=== PATIENT | female | born 1950 ===

== ENCOUNTER 2020-01-24 09:15 | Outpatient (REF) | payer MEDICARE, SELFPAY ==
--- NOTE | 2020-01-24 09:25 | XR_ITS ---
EXAMINATION: XR THORACIC SPINE CLINICAL INFORMATION: Pain COMPARISON: None TECHNIQUE: 3 views of the thoracic spine were obtained. FINDINGS: Bone alignment is normal. No fracture or dislocation is seen. Disc spaces are normal. Paraspinal soft tissues are normal. IMPRESSION: Unremarkable examination.
== END 2020-01-24 09:16 | disposition home or self-care (01) ==
LOC: HO.XRAY 09:15
PROVIDERS: PCP Internal Medicine; Visit Provider Internal Medicine
DX: M54.6 Pain in thoracic spine (principal)
CPT/HCPCS: 72072

== ENCOUNTER 2020-02-07 09:13 | Outpatient (REF) | payer MEDICARE, SELFPAY ==
--- NOTE | 2020-02-07 | US_ITS ---
EXAMINATION: US ABDOMEN COMPLETE CLINICAL INFORMATION: Abdominal pain. COMPARISON: None TECHNIQUE: Real-time imaging of the abdominal viscera. FINDINGS: PANCREAS: Normal. ABDOMINAL AORTA: The proximal, mid, and distal segments are normal in caliber. INFERIOR VENA CAVA: Visualized portions are normal. LIVER: Normal. The liver is normal in size. The liver contour is normal. Parenchymal echogenicity is normal. No focal hepatic lesion. There is no intrahepatic biliary duct dilatation seen. GALLBLADDER: Normal. The gallbladder is physiologically distended without evidence of stones, sludge, polyps, wall thickening or pericholecystic fluid. COMMON BILE DUCT: Normal in caliber measuring 0.3 cm in diameter. RIGHT KIDNEY: Normal. No hydronephrosis. No renal calculi or focal parenchymal lesions. The kidney measures 10 cm in maximum dimension. LEFT KIDNEY: Normal. No hydronephrosis. No renal calculi or focal parenchymal lesions. The kidney measures 10 cm in maximum dimension. SPLEEN: Not well visualized. The spleen measures 8 cm in maximum dimension. FREE FLUID: None. IMPRESSION: Limited visualization of the spleen. Otherwise unremarkable exam.
== END 2020-02-07 09:14 | disposition home or self-care (01) ==
LOC: HO.US 09:13
PROVIDERS: PCP Internal Medicine; Visit Provider Internal Medicine
DX: R10.84 Generalized abdominal pain (principal)
CPT/HCPCS: 76700

== ENCOUNTER 2020-05-25 08:30 | Outpatient (REF) | payer MEDICARE, SELFPAY ==
--- NOTE | ~2020-05-25 | MM_ITS ---
EXAMINATION: MM SCREENING DIGITAL BREAST TOMOSYNTHESIS, BILATERAL CLINICAL INFORMATION: Screening. Asymptomatic. The lifetime risk of breast cancer based on the Tyrer-Cuzick Model is 7%. COMPARISON: Mammography: 05/20/2019, 05/14/2018, 05/11/2017, 02/16/2016, 11/14/2014 TECHNIQUE: Digital breast tomosynthesis is performed in both the craniocaudal and mediolateral oblique views along with computer-aided detection (CAD). Synthesized 2D images are generated from the tomosynthesis. FINDINGS: There are scattered areas of fibroglandular density (ACR BI-RADS breast composition Category b). The right breast is unremarkable. There is no developing density or interval mass or architectural abnormality. Neither breast shows abnormal calcifications. The axilla and skin contours are unremarkable. There is subtle asymmetric density posterior 3:00 left breast when compared with prior exams. Patient will be recalled for additional imaging. MM/MM tomosynthesis screening BI IMPRESSION: 1. Left: Small subtle focal asymmetric density posterior 3:00. 2. Right: No mammographic evidence of malignancy. ASSESSMENT: BI-RADS 0: Incomplete - Need Additional Imaging Evaluation RECOMMENDATION: 1. Additional views of the left breast (3-D rolled CC x2, 3-D ML). 2. Targeted ultrasound if warranted after review of the additional views. 3. Radiology department staff will contact the patient for additional imaging. This patient's information was entered into a reminder system with a target due date for their next mammogram.
== END 2020-05-25 08:31 | disposition home or self-care (01) ==
LOC: HO.MAMMO 08:30
PROVIDERS: Visit Provider Internal Medicine
DX: Z12.31 Encounter for screening mammogram for malignant neoplasm of breast (principal)
CPT/HCPCS: 77063; 77067

== ENCOUNTER 2020-07-02 10:22 | Outpatient (REF) | payer MEDICARE, SELFPAY ==
--- NOTE | ~2020-07-02 | MM_ITS ---
EXAMINATION: MM DIAGNOSTIC DIGITAL BREAST TOMOSYNTHESIS, LEFT US DIAGNOSTIC ULTRASOUND BREAST, LEFT CLINICAL INFORMATION: Recall from screening for subtle asymmetric density posterior 3:00 left breast. COMPARISON: Mammography: 05/25/2020, 05/20/2019, 05/14/2018 TECHNIQUE: Digital breast tomosynthesis is performed. 2D images are generated from the tomosynthesis. The following views are obtained: 3-D rolled CC x2, 3-D ML, 3-D spot CC, 3-D spot ML. Ultrasound left breast is targeted to the outer quadrant. Grayscale imaging and color Doppler are performed without and with harmonics. FINDINGS: There are scattered areas of fibroglandular density (ACR BI-RADS breast composition Category b). The finding on additional views is less conspicuous. There is subtle benign-appearing oval nodularity on spot MLO view measuring just under 5 mm. No architectural abnormality. Ultrasound demonstrates small clustered microcysts versus tiny cyst with fine avascular internal septations 3:00 position 5 cm from nipple measuring 0.7 x 0.3 cm. There is no appreciable increased or decreased through transmission of sound likely due to the small size. There is no solid component or associated peripheral or internal color flow. Results are discussed with the patient at time of visit. MM/MM tomosynthesis added views L IMPRESSION: Additional imaging demonstrates small benign-appearing clustered microcysts versus cyst with fine avascular internal septations 3:00 position. No increased or decreased through transmission of sound. This appears to correspond to finding on recent screening mammography. ASSESSMENT: BI-RADS 3: Probably Benign RECOMMENDATION: Diagnostic left mammography and targeted left breast ultrasound in 6 months. This patient's information was entered into a reminder system with a target due date for their next mammogram.
== END 2020-07-02 10:23 | disposition home or self-care (01) ==
LOC: HO.MAMMO 10:22
PROVIDERS: PCP Internal Medicine; Visit Provider Internal Medicine
DX: R92.2 Inconclusive mammogram (principal)
CPT/HCPCS: 76642; 77061; 77065

== ENCOUNTER 2020-08-03 05:59 | Outpatient (REF) | payer MEDICARE, SELFPAY ==
[2020-08-03 07:37] LABS: Alanine Aminotransferase 21 U/L (0-31); Albumin Level 4.2 g/dL (3.5-5.0); Alkaline Phosphatase 79 U/L (39-117); Anion Gap 14 (12-20); Aspartate Amino Transferase 27 U/L (5-31); Bilirubin Total 0.4 mg/dL (0.0-1.0); Blood Urea Nitrogen 9 mg/dL (9-16); Calcium 9.4 mg/dL (8.4-10.2); Carbon Dioxide 28 mmol/L (22-29); Chloride 106 mmol/L (96-108); Cholesterol 179 mg/dL; Estimated Glomerular Filt Rate > 60; Glucose Fasting 96 mg/dL (60-99); HDL Cholesterol 60 mg/dL; LDL Cholesterol Calculated 92 mg/dl; Potassium 4.8 mmol/L (3.3-5.1); Sodium 143 mmol/L (135-145); Total Protein 7.1 g/dL (6.5-8.0); Triglycerides 136 mg/dL
== END 2020-08-03 06:00 | disposition home or self-care (01) ==
LOC: HO.LAB 05:59
PROVIDERS: PCP Internal Medicine; Visit Provider Internal Medicine
DX: E78.00 Pure hypercholesterolemia, unspecified (principal)
CPT/HCPCS: 36415; 80053; 80061

== ENCOUNTER 2020-12-31 08:55 | Outpatient (REF) | payer MEDICARE, SELFPAY ==
--- NOTE | ~2020-12-31 | MM_ITS ---
EXAMINATION: MM DIAGNOSTIC DIGITAL BREAST TOMOSYNTHESIS, LEFT US DIAGNOSTIC ULTRASOUND BREAST, LEFT CLINICAL INFORMATION: Short interval 6 months follow-up probable benign asymmetric density outer left breast likely corresponding to a benign complicated cyst. The lifetime risk of breast cancer based on the Tyrer-Cuzick Model is 5%. COMPARISON: Mammography: 07/02/2020, 05/25/2020, 05/20/2019, 05/14/2018, 05/11/2017; 02/16/2016 targeted left breast ultrasound 07/02/2020. TECHNIQUE: Digital breast tomosynthesis is performed in both the craniocaudal and mediolateral oblique views along with computer-aided detection (CAD). Synthesized 2D images are generated from the tomosynthesis. Ultrasound left breast is targeted to the outer aspect. Grayscale imaging and color Doppler are performed without and with harmonics. FINDINGS: There are scattered areas of fibroglandular density (ACR BI-RADS breast composition Category b). The asymmetric density outer left breast is less conspicuous. Parenchymal pattern is likely similar to remote exam 2016. There is no architectural abnormality, interval mass, or developing density. No abnormal calcifications. The skin contours are smooth. Ultrasound left breast demonstrates small complicated cyst with some fine internal avascular septations 3:00 position 5 cm from nipple under 1 cm, or approximately 6 x 3 mm. This appears slightly decreased from prior ultrasound. No solid mass or architectural abnormality. Results are discussed with the patient at time of visit. MM/MM tomosynthesis diagnostic LT IMPRESSION: The asymmetric density outer left breast is less conspicuous. Benign-appearing complicated cyst slightly decreased. ASSESSMENT: BI-RADS 3: Probably Benign RECOMMENDATION: Diagnostic mammography at time of annual bilateral mammography, due in 6 months. This patient's information was entered into a reminder system with a target due date for their next mammogram.
== END 2020-12-31 08:56 | disposition home or self-care (01) ==
LOC: HO.MAMMO 08:55
PROVIDERS: PCP Internal Medicine; Visit Provider Internal Medicine
DX: R92.2 Inconclusive mammogram (principal)
CPT/HCPCS: 76642; 77061; 77065

== ENCOUNTER 2021-02-01 06:02 | Outpatient (REF) | payer MEDICARE, SELFPAY ==
[2021-02-01 07:36] LABS: Alanine Aminotransferase 18 U/L (0-31); Albumin Level 4.2 g/dL (3.5-5.0); Alkaline Phosphatase 75 U/L (39-117); Anion Gap 11 (12-20); Aspartate Amino Transferase 27 U/L (5-31); Bilirubin Total 0.6 mg/dL (0.0-1.0); Blood Urea Nitrogen 10 mg/dL (9-16); Calcium 9.5 mg/dL (8.4-10.2); Carbon Dioxide 27 mmol/L (22-29); Chloride 107 mmol/L (96-108); Cholesterol 174 mg/dL; Estimated Glomerular Filt Rate 59; Glucose Fasting 94 mg/dL (60-99); HDL Cholesterol 53 mg/dL; LDL Cholesterol Calculated 102 mg/dl; Potassium 4.4 mmol/L (3.3-5.1); Sodium 141 mmol/L (135-145); Total Protein 7.1 g/dL (6.5-8.0); Triglycerides 98 mg/dL
== END 2021-02-01 06:03 | disposition home or self-care (01) ==
LOC: HO.LAB 06:02
PROVIDERS: PCP Internal Medicine; Visit Provider Internal Medicine
DX: E78.5 Hyperlipidemia, unspecified (principal)
CPT/HCPCS: 36415; 80053; 80061

== ENCOUNTER 2021-04-25 08:27 | Outpatient (REF) | payer MEDICARE, SELFPAY ==
--- NOTE | ~2021-04-25 | MM_ITS ---
EXAMINATION: BONE DENSITOMETRY CLINICAL INDICATION: Encounter for screening for osteoporosis. COMPARISON: Baseline BD dated 06/01/2009. TECHNIQUE: Using a [employer] DXA System (software version: 13.1) manufactured by [email or web address], dual-energy x-ray absorptiometry was performed of the lumbar spine and left hip. The images are of good technical quality. Summary results are attached. FINDINGS: AP SPINE L1-L4: Current: BMD 1.113 g/cm2, Z-score 0.6, T-score -0.6, normal, 4.4% increase from baseline (<5% change is not significant). Baseline: BMD 1.066 g/cm2. LEFT FEMUR, NECK: Current: BMD 0.806 g/cm2, Z-score -0.2, T-score -1.7, osteopenia. Baseline: BMD 0.810 g/cm2. LEFT FEMUR, TOTAL: Current: BMD 0.796 g/cm2, Z-score -0.5, T-score -1.7, osteopenia, 0.7% decrease from baseline (<5% change is not significant). Baseline: BMD 0.802 g/cm2. IDENTIFIED RISK FACTORS: Menopause. HISTORY OF FRACTURE: None listed. MEDICATIONS: Calcium supplements or multivitamin, vitamin D. MM/XR DEXA axial skeleton IMPRESSION: 1. DIAGNOSIS: Osteopenia based on the lowest T-score value of -1.7 in the femoral neck and total femur applying World Health Organization criteria. 2. 10-YEAR FRACTURE RISK PREDICTION, FRAX: Major osteoporotic fracture (clinical spine, forearm, hip or shoulder) 10.8%. Hip fracture 1.9%. 3. Treatment Recommendations: NOF guidelines recommend consideration for treatment in postmenopausal women and men age 50 and older presenting with the following: -A hip or vertebral (clinical or morphometric) fracture. -T-score less than or equal to -2.5 at the femoral neck or spine after appropriate evaluation to exclude secondary causes. -Low bone mass at the hip or spine and a 10-year fracture probability by FRAX of greater than or equal to 3% for hip fracture or greater than or equal to 20% for major osteoporotic fracture based on the [place] adapted WHO algorithm. 4. Other Recommendations: All treatment decisions require clinical judgment and consideration of individual patient factors, including patient preferences, comorbidities, previous drug use, risk factors not captured in the FRAX model (e.g. frailty, falls, vitamin D deficiency, increased bone turnover, interval significant decline in bone density) and possible under or overestimation of fracture risk by FRAX. Additional medical evaluation for secondary cause of low bone mineral density may be appropriate. FUTURE SCAN RECOMMENDATION: People with diagnosed cases of osteoporosis or at high risk for fracture should have regular bone mineral density tests. For patients eligible for Medicare, routine testing is allowed once every 2 years. The testing frequency can be increased to one year for patients who have rapidly progressing disease, those who are receiving or discontinuing medical therapy to restore bone mass, or have additional risk factors.
== END 2021-04-25 08:28 | disposition home or self-care (01) ==
LOC: HO.MAMMO 08:27
PROVIDERS: PCP Internal Medicine; Visit Provider Internal Medicine
DX: Z13.820 Encounter for screening for osteoporosis (principal); M85.80 Other specified disorders of bone density and structure, unspecified site; M95.8 Other specified acquired deformities of musculoskeletal system; Z78.0 Asymptomatic menopausal state; Z79.899 Other long term (current) drug therapy
CPT/HCPCS: 77080

== ENCOUNTER 2021-07-03 14:41 | Outpatient (REF) | payer MEDICARE, SELFPAY ==
--- NOTE | ~2021-07-03 | MM_ITS ---
EXAMINATION: MM DIAGNOSTIC DIGITAL BREAST TOMOSYNTHESIS, BILATERAL CLINICAL INFORMATION: Due for yearly. Also follow-up probable benign asymmetric density posterior 3:00 left breast. The lifetime risk of breast cancer based on the Tyrer-Cuzick Model is 5%. COMPARISON: Mammography: 12/31/2020, 07/02/2020, 05/25/2020 (BI-RADS 0), 05/20/2019, 05/14/2018, 05/11/2017 TECHNIQUE: Digital breast tomosynthesis is performed in both the craniocaudal and mediolateral oblique views along with computer-aided detection (CAD). Synthesized 2D images are generated from the tomosynthesis. FINDINGS: There are scattered areas of fibroglandular density (ACR BI-RADS breast composition Category b). Parenchymal pattern is similar to prior studies. The right breast is unremarkable. Fibroglandular tissue posterior 3:00 left breast is less conspicuous from initial recall exam. There is no developing density or interval mass or architectural abnormality. Neither breast shows abnormal calcifications. The axilla and skin contours are unremarkable. Results are provided to the patient at time of visit by the technologist. Finding for follow-up left breast will be reassessed again at next bilateral annual mammography, due in 12 months. MM/MM tomosynthesis diagnostic BI IMPRESSION: No mammographic evidence of malignancy. No developing density or interval architectural abnormality left breast. ASSESSMENT: BI-RADS 3: Probably Benign RECOMMENDATION: Diagnostic mammography at time of next annual exam, due in 12 months. This patient's information was entered into a reminder system with a target due date for their next mammogram.
== END 2021-07-03 14:42 | disposition home or self-care (01) ==
LOC: HO.MAMMO 14:41
PROVIDERS: PCP Internal Medicine; Visit Provider Internal Medicine
DX: R92.2 Inconclusive mammogram (principal)
CPT/HCPCS: 77062; 77066

== ENCOUNTER 2021-08-03 07:01 | Outpatient (REF) | payer MEDICARE, SELFPAY ==
[2021-08-03 07:45] LABS: Alanine Aminotransferase 19 U/L (0-31); Albumin Level 4.2 g/dL (3.5-5.0); Alkaline Phosphatase 74 U/L (39-117); Anion Gap 13 (12-20); Aspartate Amino Transferase 28 U/L (5-31); Bilirubin Total 0.8 mg/dL (0.0-1.0); Blood Urea Nitrogen 9 mg/dL (9-16); Calcium 9.7 mg/dL (8.4-10.2); Carbon Dioxide 25 mmol/L (22-29); Chloride 106 mmol/L (96-108); Cholesterol 186 mg/dL; Estimated Glomerular Filt Rate 56; Glucose Fasting 102 mg/dL (60-99); HDL Cholesterol 61 mg/dL; LDL Cholesterol Calculated 108 mg/dl; Potassium 4.4 mmol/L (3.3-5.1); Sodium 140 mmol/L (135-145); Total Protein 7.2 g/dL (6.5-8.0); Triglycerides 87 mg/dL
== END 2021-08-03 07:02 | disposition home or self-care (01) ==
LOC: HO.LAB 07:01
PROVIDERS: PCP Internal Medicine; Visit Provider Internal Medicine
DX: E78.5 Hyperlipidemia, unspecified (principal)
CPT/HCPCS: 36415; 80053; 80061

== ENCOUNTER 2022-02-07 06:06 | Outpatient (REF) | payer MEDICARE, SELFPAY ==
[2022-02-07 07:15] LABS: Alanine Aminotransferase 26 U/L (0-31); Albumin Level 4.2 g/dL (3.5-5.0); Alkaline Phosphatase 77 U/L (39-117); Anion Gap 16 (12-20); Aspartate Amino Transferase 38 U/L (5-31); Bilirubin Total 0.8 mg/dL (0.0-1.0); Blood Urea Nitrogen 8 mg/dL (9-16); Calcium 9.5 mg/dL (8.4-10.2); Carbon Dioxide 26 mmol/L (22-29); Chloride 107 mmol/L (96-108); Cholesterol 169 mg/dL; Estimated Glomerular Filt Rate > 60; Glucose Fasting 99 mg/dL (60-99); HDL Cholesterol 59 mg/dL; LDL Cholesterol Calculated 92 mg/dl; Potassium 4.6 mmol/L (3.3-5.1); Sodium 144 mmol/L (135-145); Triglycerides 92 mg/dL
[2022-02-07 07:37] LABS: Vitamin D 25-OH Total 40.8 ng/mL (>30)
== END 2022-02-07 06:07 | disposition home or self-care (01) ==
LOC: HO.LAB 06:06
PROVIDERS: PCP Internal Medicine; Visit Provider Internal Medicine
DX: M85.80 Other specified disorders of bone density and structure, unspecified site (principal); E78.5 Hyperlipidemia, unspecified; E55.9 Vitamin D deficiency, unspecified
CPT/HCPCS: 36415; 80053; 80061; 82306

== ENCOUNTER 2022-07-03 12:41 | Outpatient (REF) | payer MEDICARE, SELFPAY ==
--- NOTE | ~2022-07-03 | MM_ITS ---
EXAMINATION: MM DIAGNOSTIC DIGITAL BREAST TOMOSYNTHESIS, BILATERAL CLINICAL INFORMATION: Due for yearly. Also follow-up probable benign asymmetric density posterior 3:00 left breast. The lifetime risk of breast cancer based on the Tyrer-Cuzick Model is 5%. COMPARISON: Mammography: 07/03/2021, 12/31/2020, 07/02/2020, 05/25/2020 (BI-RADS 0), 05/20/2019, left breast ultrasound 12/31/2020 and 07/02/2020. TECHNIQUE: Digital breast tomosynthesis is performed in both the craniocaudal and mediolateral oblique views along with computer-aided detection (CAD). Synthesized 2D images are generated from the tomosynthesis. FINDINGS: There are scattered areas of fibroglandular density (ACR BI-RADS breast composition Category b). There are no significant masses, abnormal calcifications, or other abnormalities. The nodular asymmetric density for follow-up posterior 3:00 left breast is not clearly demonstrated. There is no developing density or architectural abnormality. The axilla and skin contours are unremarkable. Results are provided to the patient at time of visit by the technologist. Surveillance will be completed at next bilateral annual exam, due in one year. MM/MM tomosynthesis diagnostic BI IMPRESSION: -No mammographic evidence of malignancy. -Finding posterior 3:00 left breast for follow-up appears less conspicuous. No developing density. ASSESSMENT: BI-RADS 3: Probably Benign RECOMMENDATION: Diagnostic mammography at time of next annual exam, due in 12 months. This patient's information was entered into a reminder system with a target due date for their next mammogram.
== END 2022-07-03 12:42 | disposition home or self-care (01) ==
LOC: HO.MAMMO 12:41
PROVIDERS: Visit Provider Internal Medicine
DX: R92.2 Inconclusive mammogram (principal)
CPT/HCPCS: 77062; 77066

== ENCOUNTER 2022-08-08 05:58 | Outpatient (REF) | payer MEDICARE, SELFPAY ==
[2022-08-08 08:35] LABS: Alanine Aminotransferase 14 U/L (0-31); Albumin Level 4.2 g/dL (3.5-5.0); Alkaline Phosphatase 81 U/L (39-117); Anion Gap 14 (12-20); Aspartate Amino Transferase 24 U/L (5-31); Bilirubin Total 0.8 mg/dL (0.0-1.0); Blood Urea Nitrogen 14 mg/dL (9-16); Calcium 9.3 mg/dL (8.4-10.2); Carbon Dioxide 25 mmol/L (22-29); Chloride 108 mmol/L (96-108); Cholesterol 185 mg/dL; Estimated Glomerular Filt Rate 58; Glucose Fasting 92 mg/dL (60-99); HDL Cholesterol 57 mg/dL; LDL Cholesterol Calculated 105 mg/dl; Potassium 4.7 mmol/L (3.3-5.1); Sodium 142 mmol/L (135-145); Triglycerides 116 mg/dL
[2022-08-08 08:51] LABS: Vitamin D 25-OH Total 53.6 ng/mL (>30)
== END 2022-08-08 05:59 | disposition home or self-care (01) ==
LOC: HO.LAB 05:58
PROVIDERS: PCP Internal Medicine; Visit Provider Internal Medicine
DX: E55.9 Vitamin D deficiency, unspecified (principal); E78.5 Hyperlipidemia, unspecified; R03.0 Elevated blood-pressure reading, without diagnosis of hypertension
CPT/HCPCS: 36415; 80053; 80061; 82306

== ENCOUNTER 2022-08-26 06:05 | Outpatient (REF) | payer MEDICARE, SELFPAY ==
--- NOTE | ~2022-08-26 | XR_ITS ---
Examination: Lumbar spine and right hip. Clinical indications: Low back pain. Right hip pain. COMPARISON: None. TECHNIQUE: Lumbar spine 3 views. Right hip 2 views. FINDINGS: LUMBAR SPINE: There is normal lumbar lordosis. The vertebral heights and alignment is normal. There is loss of L5-S1 and L1-L2 disc heights. No visible acute fracture, dislocation or lytic process seen. SI joints are symmetrical and normal. RIGHT HIP: The joint space is maintained normal. No visible acute fracture, dislocation or subluxation seen. No bony erosive changes. The soft tissues are normal. XR/XR lumbar spine 2-3V IMPRESSION: 1. Mild degenerative disc changes L1-L2 and L5-S1 disc levels. No visible acute fracture, dislocation or lytic process seen. 2. Unremarkable right hip exam.
--- NOTE | ~2022-08-26 | XR_ITS ---
Examination: Lumbar spine and right hip. Clinical indications: Low back pain. Right hip pain. COMPARISON: None. TECHNIQUE: Lumbar spine 3 views. Right hip 2 views. FINDINGS: LUMBAR SPINE: There is normal lumbar lordosis. The vertebral heights and alignment is normal. There is loss of L5-S1 and L1-L2 disc heights. No visible acute fracture, dislocation or lytic process seen. SI joints are symmetrical and normal. RIGHT HIP: The joint space is maintained normal. No visible acute fracture, dislocation or subluxation seen. No bony erosive changes. The soft tissues are normal. XR/XR hip RT min 2V IMPRESSION: 1. Mild degenerative disc changes L1-L2 and L5-S1 disc levels. No visible acute fracture, dislocation or lytic process seen. 2. Unremarkable right hip exam.
== END 2022-08-26 06:06 | disposition home or self-care (01) ==
LOC: HO.XRAY 06:05
PROVIDERS: PCP Internal Medicine; Visit Provider Internal Medicine
DX: M54.50 Low back pain, unspecified (principal); M25.551 Pain in right hip
CPT/HCPCS: 72100; 73502

== ENCOUNTER 2022-10-09 10:00 | Outpatient (RCR) | payer MEDICARE, SELFPAY ==
--- NOTE | 2022-09-11 13:58 | MHC.PT.EP ---
[facility] [place] Office [place] [facility] [place] [facility] [address] Judy Baker [address] [phone] F: [phone] F: [phone] F: [phone] F: [phone] Physical Therapy Plan of Care Date of Evaluation: Date of Surgery: Diagnosis: low back pain, RIGHT hip pain (MD Dx) RIGHT hip flexor/psoas tendonitis (PT Dx) Assessment: Patient is a 72 y.o. female who is referred to PT by Dr. Gina Zapien MD with Dx of low back pain, RIGHT hip pain. PT diagnosis is R hip flexor/psoas tendonitis. Patient impairments include pain, antalgic gait, weakness, limited ROM. Patient current functional limitations are sit to stand, standing and turning, bending, lifting up R hip, ascending and descending stairs, putting on shoes/socks, ride bicycle outdoors. Patient will benefit from skilled PT to address aforementioned impairments and functional limitations to meet established goals. Frequency and Duration: The patient will be seen 2x/week for 4 weeks Short Term Goals: 2 weeks Patient demonstrates consistency and independence with HEP to self manage symptoms. Patient presents with increased R hip extension 20 degrees to be able to perform normalized gait pattern without pain. Education Analyst Goals: 4 weeks Patient presents with increased R hip flexion strength 5/5 without pain to be able to perform reciprocal stairs at home. Patient presents with increased R hip flexion AROM 110 degrees to be able to perform sit to stand off low surfaces/toilet without sxs. Treatment Plan: Modalities to reduce pain, spasms and effusion. Manual therapy to restore motion and function. Therapeutic exercise to improve strength and flexibility. Neuromuscular re-education for posture and balance. Therapeutic activities to return to functional activities of daily living. Electronically signed by: Grisel Chen, PT, DPT Please sign and return to therapist. Thank you for your referral.
--- NOTE | 2022-10-09 11:23 | MHC.PT.EP ---
[facility] [place] Office [place] [facility] [place] Office [address] Judy Baker [address] [phone] F: [phone] F: [phone] F: [phone] F: [phone] Physical Therapy Plan of Care Date of Evaluation: Date of Surgery: Diagnosis: low back pain, RIGHT hip pain (MD Dx) RIGHT hip flexor/psoas tendonitis (PT Dx) Assessment: Patient is a 72 y.o. female who is referred to PT by Dr. Gina Zapien MD with Dx of low back pain, RIGHT hip pain. PT diagnosis is R hip flexor/psoas tendonitis. Patient impairments include pain, antalgic gait, weakness, limited ROM. Patient current functional limitations are sit to stand, standing and turning, bending, lifting up R hip, ascending and descending stairs, putting on shoes/socks, ride bicycle outdoors. Patient will benefit from skilled PT to address aforementioned impairments and functional limitations to meet established goals. Frequency and Duration: The patient will be seen 2x/week for 4 weeks Short Term Goals: 2 weeks Patient demonstrates consistency and independence with HEP to self manage symptoms. Patient presents with increased R hip extension 20 degrees to be able to perform normalized gait pattern without pain. Dry Starch Operator Goals: 4 weeks Patient presents with increased R hip flexion strength 5/5 without pain to be able to perform reciprocal stairs at home. Patient presents with increased R hip flexion AROM 110 degrees to be able to perform sit to stand off low surfaces/toilet without sxs. Treatment Plan: Modalities to reduce pain, spasms and effusion. Manual therapy to restore motion and function. Therapeutic exercise to improve strength and flexibility. Neuromuscular re-education for posture and balance. Therapeutic activities to return to functional activities of daily living. Electronically signed by: Grisel Chen, PT, DPT Please sign and return to therapist. Thank you for your referral.
== END 2022-10-09 11:24 | disposition home or self-care (01) ==
LOC: HO.PT 10:00
PROVIDERS: PCP Internal Medicine; Visit Provider Internal Medicine
DX: M54.50 Low back pain, unspecified (principal); M25.551 Pain in right hip
CPT/HCPCS: 97110; 97140; 97161; 97530

== ENCOUNTER 2023-07-09 10:46 | Outpatient (REF) | payer MEDICARE, SELFPAY ==
--- NOTE | ~2023-07-09 | MM_ITS ---
EXAMINATION: MM DIAGNOSTIC DIGITAL BREAST TOMOSYNTHESIS, BILATERAL CLINICAL INFORMATION: Due for bilateral screening. Also, diagnostic for follow-up of focal asymmetry previously seen 3:00 axis left breast, middle one third. This was not seen on the most recent mammogram of 07/03/2022. COMPARISON: Mammography: 07/03/2022, 07/03/2021, 12/31/2020, 05/25/2020, 05/20/2019. TECHNIQUE: Digital breast tomosynthesis is performed in both the craniocaudal and mediolateral oblique views along with computer-aided detection (CAD). Synthesized 2D images are generated from the tomosynthesis. FINDINGS: There are scattered areas of fibroglandular density (ACR BI-RADS breast composition Category b). The previously seen asymmetric density in the 3:00 axis left breast is not seen on today's exam and has resolved. There are no suspicious masses, suspicious grouped calcifications, or areas of architectural distortion in either breast. The parenchymal pattern is stable from prior exams. No skin or axillary abnormalities. MM/MM tomosynthesis diagnostic BI IMPRESSION: No findings either breast suspicious for malignancy. Left breast demonstrates no evidence of residual asymmetry at the 3:00 axis. This appears to have resolved. This is benign. Recommend returning to routine annual screening mammography. ASSESSMENT: BI-RADS BI-RADS 1 - Negative RECOMMENDATION: 1 year F/U Results were provided to the patient at time of visit by the technologist. This patient's information was entered into a reminder system with a target due date for their next mammogram.
== END 2023-07-09 10:47 | disposition home or self-care (01) ==
LOC: HO.MAMMO 10:46
PROVIDERS: PCP Internal Medicine; Visit Provider Internal Medicine
DX: R92.2 Inconclusive mammogram (principal)
CPT/HCPCS: 77062; 77066

== ENCOUNTER → 2023-07-09 11:00 | Outpatient (BNV) | payer MEDICARE, SELFPAY | PROVIDERS: PCP Internal Medicine; Visit Provider Radiology Diagnostic Radiology | DX: R92.8 Other abnormal and inconclusive findings on diagnostic imaging of breast (principal) | CPT/HCPCS: 77066; G0279 ==

== ENCOUNTER 2023-07-22 06:37 | Outpatient (REF) | payer MEDICARE, SELFPAY ==
[2023-07-22 07:45] LABS: Alanine Aminotransferase 8 U/L (0-31); Albumin Level 3.4 g/dL (3.5-5.0); Alkaline Phosphatase 80 U/L (39-117); Anion Gap 15 (12-20); Aspartate Amino Transferase 15 U/L (5-31); Bilirubin Total 0.5 mg/dL (0.0-1.0); Blood Urea Nitrogen 9 mg/dL (9-16); Calcium 9.4 mg/dL (8.4-10.2); Carbon Dioxide 24 mmol/L (22-29); Chloride 103 mmol/L (96-108); Cholesterol 128 mg/dL (<200); Estimated Glomerular Filt Rate > 60; Glucose Fasting 107 mg/dL (60-99); HDL Cholesterol 40 mg/dL (>40); LDL Cholesterol Calculated 74 mg/dL (<100); Potassium 4.3 mmol/L (3.3-5.1); Sodium 138 mmol/L (135-145); Total Protein 7.7 g/dL (6.5-8.0); Triglycerides 72 mg/dL (<150)
== END 2023-07-22 06:38 | disposition home or self-care (01) ==
LOC: HO.LAB 06:37
PROVIDERS: PCP Internal Medicine; Visit Provider Internal Medicine
DX: E78.5 Hyperlipidemia, unspecified (principal)
CPT/HCPCS: 36415; 80053; 80061

== ENCOUNTER 2023-07-27 08:29 | Outpatient (AMB) | payer MEDICARE, SELFPAY ==
[2023-07-27 08:30] VITALS: BP 148/76; BMI 27.4
--- NOTE | 2023-07-27 08:30 | A.OFFVIS_ITS ---
Intake Vital Signs 07/27/23 08:30 07/27/23 08:52 Height 5 ft 7 in Weight 175 lb BMI 27.4 BP 148/76 H 138/80 Blood Pressure Location Lt brachial Lt brachial Position Sitting Sitting Intake Visit Reasons: ALPHONSO G0439 Intake Note: Patient here for a subsequent annual wellness visit. Sales Order Specialist Required: No Accompanied by: Spouse Allergies No Known Allergies Allergy (Verified 07/27/23 08:51) Medication List - Last Reconciled 07/27/23 by Gina Zapien MD calcium carbonate 600 mg PO BID 90 days cholecalciferol (vitamin D3) (Vitamin D3) 25 mcg PO DAILY 90 days simvastatin 10 mg PO BEDTIME 90 days HPI HPI Comments History of Present Illness Details This is a 73-year-old female that comes for her Medicare annual wellness exam accompanied by Yessi which is her significant other and healthcare proxy. Last mammogram was June 2023 and was normal. Last colonoscopy was 2015 and was normal. Last bone density showing osteopenia was done 2021 and a new bone density will be ordered. PPP handed to patient. She complains of diffuse joint pain that started about 2 months ago associated with Reeder swelling. It started with the right knee, then the left shoulder, then the neck and right shoulder, then both wrist and left knee. She denies any fever or rash. Will be referred to rheumatology for this matter. [facility] Medical History (Updated 07/27/23 @ 09:15 by Gina Zapien MD) Elevated blood pressure reading without diagnosis of hypertension Osteopenia Dyslipidemia IBS (irritable bowel syndrome) Surgical History (Updated 07/27/23 @ 08:58 by Gina Zapien MD) Keloid History of removal of ovarian cyst Family History Father Renal failure Mother Dementia Social History Housing: House Alcohol intake: current Alcohol intake frequency: a few times a month Alcohol type: beer Patient Tobacco Use Status: Former Tobacco user Tobacco use type: Cigarette e-Cigarette/Vaping Use: Never Used Second Hand Smoke Exposure: No service: No Current occupational status: retired Cognitive needs: No Hearing needs: No Vision needs: No Questionnaire Medicare Wellness Checkup [age] What gender do you identify with?: female During the past 4 weeks, how much have you been bothered by emotional problems such as feeling anxious, depressed, irritable, sad or downhearted, and blue?: not at all During the past 4 weeks, has your physical & emotional health limited your social activities with family, friends, neighbors, or groups?: moderately During the past 4 weeks, how much bodily pain have you generally had?: moderate pain During the past 4 weeks, was someone available to help you if you needed & wanted help?: yes, as much as I wanted During the past 4 weeks, what was the hardest physical activity you could do for at least 2 minutes?: moderate Can you get to places out of walking distance without help? (For eg., can you travel alone on buses, taxis or drive your car?): Yes Can you go shopping for groceries or clothes without someone's help?: Yes Can you prepare your own meals?: Yes Can you do your housework without help?: Yes Because of any health problems, do you need the help of another person with your personal care needs such as eating, bathing, dressing or getting around the house?: No Can you handle your own money without help?: Yes During the past 4 weeks, how would you rate your health in general?: good During the past 4 weeks how have things been going for you?: good & bad parts about equal Are you having difficulties driving your car?: no Do you always fasten your seat belt when you are in a car?: yes, usually During past 4 weeks, have you been bothered by the following: never: Falling or dizzy when standing up, Sexual problems?, Trouble eating well?, Teeth or denture problems?, Problems using the telephone? and Tiredness or fatigue? Have you fallen 2 or more times in the past year?: No Are you afraid of falling?: No Are you a smoker?: no During the past 4 weeks, how many drinks of wine, beer, or other alcoholic beverages did you have?: 1 drink or less per week Do you exercise for about 20 minutes 3 or more times a week?: yes, some of the time Have you been given information to help with the following?: no: Hazards in your house that might hurt you? and no: Keeping track of your medications? How often do you have trouble taking medicines the way you have been told to take them?: I always take medicine as prescribed How confident are you that you can control & manage most of your health problems?: very confident What is your race?: White Mini Mental State Exam (MMSE) Orientation What is the (year) (season) (date) (day) (month)?: year, season, date, day and month Where are we (state) (county) (town or city) (hospital) (floor)?: state, county, town or city, hospital/clinic and floor Registration Name of 3 unrelated objects clearly and slowly, then ask patient to repeat all 3 of them. (1st repeat determines score. Make sure they can repeat all three): object 1, object 2 and object 3 Attention & Calculation (CHOOSE ONE) Spell WORLD backwards (DLROW): 5 letters Recall Ask patient to repeat the 3 items from question #3.: object 1, object 2 and object 3 Language Show patient a wristwatch & ask what it is. Repeat for pencil.: watch and pencil Ask the patient to repeat the phrase 'No ifs, ands, or buts' after you.: correct Ask the patient to 'take a piece of paper with their right hand' 'fold paper in half' 'place paper on floor': take paper in right hand, fold paper in half and place paper on floor Print the sentence 'CLOSE YOUR EYES' on a piece. If patient actually closes eyes then score.: followed written direction Give patient a blank piece of paper & ask to write a sentence. Score if it contains a noun & verb.: sentence contains subject and verb Ask patient to copy figure of intersecting pentagons exactly. Score if all 10 angles & 2 intersects are included.: all 10 angles present & 2 are intersected Score Score: 30 Activity of Daily Living Bathing - sponge bath, tub bath or shower: receives no assistance (gets in/out by self, if usual bathing means Dressing - getting clothes from closets & drawers, including inner/outer garments & fasteners.: gets clothes & gets completely dressed without help Transfer: moves in & out of bed and chair without help (may use support object) Continence: controls urination/bowel movements completely by self Feeding: feeds self without help Total Score: 0 Information obtained from: patient Using telephone: independent Traveling: independent Shopping: independent Preparing meals: independent Housework: independent Taking medicine: independent Managing money: independent PHQ-9 Over the last 2 weeks, how often have you been bothered by any of the following problems? 1. Little interest or pleasure in doing things: not at all 2. Feeling down, depressed, or hopeless: not at all 3. Trouble falling or staying asleep, or sleeping too much: not at all 4. Feeling tired or having little energy: not at all 5. Poor appetite or overeating: not at all 6. Feeling bad about yourself - or that you are a failure or have let yourself or your family down: not at all 7. Trouble concentrating on things, such as reading the newspaper or watching television: not at all 8. Moving or speaking so slowly that other people could have noticed. Or the opposite - being so fidgety or restless that you have been moving around a lot more than usual: not at all 9. Thoughts that you would be better off or of hurting yourself in some way: not at all Total score: 0 Depression Screening Interpretation: Negative Depression Screening Done: Yes 98796 - PHQ-9 Billing: Yes Source: Developed by Drs. Maximino Hernandez, Flor Reddy, Mario Sherman and colleagues, with an educational tahmina from [employer]. AUDIT C Alcohol Use Questionnaire (AUDIT-C) 1. How often do you have a drink containing alcohol?: 2-4 times a month 2. How many drinks containing alcohol do you have on a typical day when you are drinking?: 1 or 2 3. How often do you have six or more drinks on one occasion?: Never Total Score: 2 Thrive Questionnaire Date Thrive assessed: 07/27/23 I am a: Patient What is your living situation today?: I have a steady place to live Within the past 12 months, did the food you bought not last and you didn't have the money to get more?: Never true Within the past 12 months, did you worry whether your food would run out before you got money to buy more?: Never true Do you have trouble paying for medicines?: No Do you have trouble getting transportation to medical appointments?: No Do you have trouble paying your heating and electricity bill?: No Do you have trouble taking care of your child, family member or friend?: No Do you have trouble with day-to-day activities such as bathing, preparing meals, shopping, managing finances, etc.?: No Are you currently unemployed and looking for a job?: No Are you interested in more education?: No Please select the resources that you would like help with: None Currently or been in a relationship where the following occur: no concerns reported THRIVE Score: 0 Fall Risk Assessment Fall Risk Assessment Fall risk assessment: No Falls in past year MISHA-7 AMB Questionnaire MISHA-7 Date MISHA - 7 assessed: 07/27/23 Feeling nervous, anxious, or on edge: 0 = Not at all Not being able to stop or control worryin = Not at all Worrying too much about different things: 0 = Not at all Trouble relaxin = Not at all Being so restless that it is hard to sit still: 0 = Not at all Becoming easily annoyed or irritable: 0 = Not at all Feeling afraid as if something awful might happen: 0 = Not at all Total MISHA-7 score (0-4 normal; 5-9 mild; 10-14 moderate; 15-21 severe): 0 Source: Developed by Drs. Maximino Hernandez, Flor Reddy, Mario Sherman and colleagues, with an educational tahmina from [employer]. MISHA-7 Assessment Billing MISHA-7 Assessment Tool: MISHA-7 Assessment 58840 Review of Systems Const All systems reviewed & are unremarkable except as noted in HPI and below Eyes Reports no additional complaints, Denies change in vision and Denies other visual disturbances ENT Reports neck pain Card Denies chest pain at rest, Denies chest pain with activity, Denies edema, Denies irregular heart rhythm, Denies claudication, Denies dyspnea, Denies dyspnea on exertion, Denies orthopnea, Denies paroxysmal nocturnal dyspnea and Denies slow heart rate Resp Denies cough, Denies dyspnea and Denies dyspnea on exertion GI Denies abdominal pain, Denies change in bowel habits, Denies excessive flatus, Denies nausea and Denies vomiting Denies urinary incontinence, Denies urinary hesitancy and Denies urinary urgency Musc Reports arthralgias, Reports joint swelling and Reports neck pain Physical Exam Vital Signs: Last Vital Signs BP 138/80 07/27/23 08:52 BMI result Body Mass Index 27.4 Const Orientation/consciousness: patient oriented x3 HEENT General nose exam: No nasal discharge present Resp Effort & Inspection: normal respiratory effort Auscultation: clear to auscultation bilaterally Cardio Jugular venous distension: no JVD Rate: regular rate Rhythm: regular rhythm Heart sounds: S1 normal heart sound present and S2 normal heart sound present Neuro General: patient oriented x3 and no focal motor deficits Gait exam (Neuro): Normal gait present Romberg Test: Negative Extrem General: Yes full ROM Psych Appearance: grossly normal Assessment & Plan Assessment & Plan (1) Encounter for Medicare annual wellness exam: Code(s): Z00.00 - Encounter for general adult medical examination without abnormal findings Plan: Repeat in a year. Orders: Orders Vitamin D 25-OH Total Today E55.9 - Vitamin D deficiency, unspecified Erythrocyte Sedimentation Rate Today M25.50 - Pain in unspecified joint XR shoulder LT min 2V Today M25.512 - Pain in left shoulder XR shoulder RT min 2V Today M25.511 - Pain in right shoulder XR wrist LT 2V Today M25.532 - Pain in left wrist Lyme IgG/IgM w/reflex to WB Today M25.50 - Pain in unspecified joint XR DEXA axial skeleton Today N95.9 - Unspecified menopausal and perimenopausal disorder Cyclic Citrullinated Peptide Today M25.50 - Pain in unspecified joint CRP High Sensitivity Today M25.50 - Pain in unspecified joint GINA Reflex Titer and Pattern Today M25.50 - Pain in unspecified joint Anti DNA DS Antibody Today M25.50 - Pain in unspecified joint Rheumatoid Factor Today M25.50 - Pain in unspecified joint XR knee LT 2V Today M25.562 - Pain in left knee XR knee RT 2V Today M25.561 - Pain in right knee XR wrist RT 2V Today M25.531 - Pain in right wrist XR cervical spine 2V Today M54.2 - Cervicalgia Referrals Rheumatology Referral M25.50 - Pain in unspecified joint Quality Reporting (2019) Adult ([facility] 138/06/11/68) Smoking risk assessment performed?: Yes Patient Tobacco Use Status: Former Tobacco user Fall Risk Screening ([facility] 139) Fall risk assessment: No Falls in past year Depression/Bipolar (159/160/161/177) PHQ-9: Total score: 0 Coding Level of Care Code Medicare Subsequent (G0439) Diagnoses Encounter for Medicare annual wellness exam Z00.00 CPT Codes Advance Care Planning - Time spent: 1-15 minutes, on File ([id number]) Additional Codes MISHA-7 Assessment Billing - MISHA-7 Assessment Tool: MISHA-7 Assessment 72777 ([id number]) Time Spent (min) 40 Advance Care Planning Advance Care Planning discussion: Completed/Scanned Date of discussion: 07/27/23 Who was present: Yessi (health care proxy), patient and me Forms completed: Health Care Proxy Time spent: 1-15 minutes, on File Actual minutes spent: 2
[2023-07-27 08:52] VITALS: BP 138/80
== END 2023-07-27 09:15 | disposition home or self-care (01) ==
PROVIDERS: PCP Internal Medicine; Visit Provider Internal Medicine
DX: Z00.00 Encounter for general adult medical examination without abnormal findings (principal)
CPT/HCPCS: 1123F; G0439

== ENCOUNTER 2023-07-28 06:36 | Outpatient (REF) | payer MEDICARE, SELFPAY ==
--- NOTE | ~2023-07-28 | XR_ITS ---
EXAMINATION: XR SHOULDER, RIGHT CLINICAL INFORMATION: Pain. COMPARISON: None available. TECHNIQUE: AP external rotation, Grashey, scapular Y, and axillary views of the right shoulder. FINDINGS: Bony alignment is normal. There is mild bony demineralization. The glenohumeral joint is intact and shows mild osteoarthritic change. The acromioclavicular and coracoclavicular intervals are normal. No fracture or dislocation is seen. There is no soft tissue calcification or foreign body. No right pneumothorax is seen. XR/XR shoulder LT min 2V IMPRESSION: 1. There is mild osteoarthritic change of the right glenohumeral joint. 2. No fracture or dislocation is seen. EXAMINATION: XR SHOULDER, LEFT CLINICAL INFORMATION: Pain. COMPARISON: None available. TECHNIQUE: AP external rotation, Grashey, scapular Y, and axillary views of the left shoulder. FINDINGS: Bony alignment is normal. There is mild bony demineralization. There is narrowing of the glenohumeral joint, with mild to moderate peripheral osteophyte formation. The acromioclavicular and coracoclavicular intervals are normal. No fracture or dislocation is seen. A small sclerotic, well marginated bone island is seen within the greater tuberosity of the proximal right humerus. No soft tissue calcifications or foreign body is seen. There is no left pneumothorax. IMPRESSION: 1. There is moderate osteoarthritic change of the left glenohumeral joint. 2. No fracture or dislocation is seen.
--- NOTE | ~2023-07-28 | XR_ITS ---
EXAMINATION: XR KNEE, RIGHT CLINICAL INFORMATION: Pain. COMPARISON: None available. TECHNIQUE: AP and lateral views of the right knee. FINDINGS: There is mild bony demineralization. The lateral and medial joint space compartments are well-maintained. The patellofemoral compartment shows mild narrowing. No fracture or dislocation is seen. There is a small joint effusion. No foreign body is seen. XR/XR knee RT 2V IMPRESSION: 1. There is mild osteoarthritic change of the right patellofemoral compartment. 2. There is a small right knee joint effusion. EXAMINATION: XR KNEE, LEFT CLINICAL INFORMATION: Pain. COMPARISON: None available. TECHNIQUE: AP and lateral views of the left knee. FINDINGS: There is mild bony demineralization. The lateral and medial joint space compartments are well-maintained. There is mild narrowing of the patellofemoral compartment. There is mild tricompartment peripheral osteophyte formation. No fracture or dislocation is seen. There is no significant joint effusion. No foreign body is seen. IMPRESSION: There is mild tricompartment osteoarthritic change of the left knee, most pronounced of the patellofemoral compartment.
--- NOTE | ~2023-07-28 | XR_ITS ---
EXAMINATION: XR WRIST, RIGHT CLINICAL INFORMATION: Pain. COMPARISON: None available. TECHNIQUE: PA, lateral, and oblique views of the right wrist. FINDINGS: There is mild bony demineralization. There is a neutral ulnar variance. There is moderate osteoarthritic change of the first carpometacarpal joint. There is mild osteoarthritic change of the interphalangeal joint of the thumb and of the second through fifth proximal interphalangeal joints. There is mild osteoarthritic change of the first metacarpophalangeal joint. No fracture or dislocation is seen. The proximal and distal carpal rows are intact. There is degenerative change of the ulnocarpal articulation. No focal soft tissue swelling, gas or foreign body is seen. XR/XR wrist RT 2V IMPRESSION: There are multi-focal osteoarthritic changes of the right hand and wrist, as detailed. No fracture or dislocation is seen. There is no abnormal focal bone erosion. EXAMINATION: XR WRIST, LEFT CLINICAL INFORMATION: Pain. COMPARISON: None available. TECHNIQUE: PA, lateral, and oblique views of the left wrist. FINDINGS: There is mild bony demineralization. There is a neutral ulnar variance. There is marked osteoarthritic change of the first carpometacarpal joint. There is mild osteoarthritic change of the interphalangeal joint of the thumb. No fracture or dislocation is seen. The proximal and distal carpal rows are intact. There is a small focal erosion of the distal ulnar styloid. No focal soft tissue swelling, gas or foreign body is seen. IMPRESSION: 1. There is marked osteoarthritic change of the first carpometacarpal joint, and mild osteoarthritic change is seen of the interphalangeal joint of the thumb. 2. There is mild focal erosion of the distal margin of the ulnar styloid process, which can be seen in association with rheumatoid arthritis. Please clinically clinically.
--- NOTE | ~2023-07-28 | XR_ITS ---
EXAMINATION: XR KNEE, RIGHT CLINICAL INFORMATION: Pain. COMPARISON: None available. TECHNIQUE: AP and lateral views of the right knee. FINDINGS: There is mild bony demineralization. The lateral and medial joint space compartments are well-maintained. The patellofemoral compartment shows mild narrowing. No fracture or dislocation is seen. There is a small joint effusion. No foreign body is seen. XR/XR knee LT 2V IMPRESSION: 1. There is mild osteoarthritic change of the right patellofemoral compartment. 2. There is a small right knee joint effusion. EXAMINATION: XR KNEE, LEFT CLINICAL INFORMATION: Pain. COMPARISON: None available. TECHNIQUE: AP and lateral views of the left knee. FINDINGS: There is mild bony demineralization. The lateral and medial joint space compartments are well-maintained. There is mild narrowing of the patellofemoral compartment. There is mild tricompartment peripheral osteophyte formation. No fracture or dislocation is seen. There is no significant joint effusion. No foreign body is seen. IMPRESSION: There is mild tricompartment osteoarthritic change of the left knee, most pronounced of the patellofemoral compartment.
--- NOTE | ~2023-07-28 | XR_ITS ---
EXAMINATION: XR SHOULDER, RIGHT CLINICAL INFORMATION: Pain. COMPARISON: None available. TECHNIQUE: AP external rotation, Grashey, scapular Y, and axillary views of the right shoulder. FINDINGS: Bony alignment is normal. There is mild bony demineralization. The glenohumeral joint is intact and shows mild osteoarthritic change. The acromioclavicular and coracoclavicular intervals are normal. No fracture or dislocation is seen. There is no soft tissue calcification or foreign body. No right pneumothorax is seen. XR/XR shoulder RT min 2V IMPRESSION: 1. There is mild osteoarthritic change of the right glenohumeral joint. 2. No fracture or dislocation is seen. EXAMINATION: XR SHOULDER, LEFT CLINICAL INFORMATION: Pain. COMPARISON: None available. TECHNIQUE: AP external rotation, Grashey, scapular Y, and axillary views of the left shoulder. FINDINGS: Bony alignment is normal. There is mild bony demineralization. There is narrowing of the glenohumeral joint, with mild to moderate peripheral osteophyte formation. The acromioclavicular and coracoclavicular intervals are normal. No fracture or dislocation is seen. A small sclerotic, well marginated bone island is seen within the greater tuberosity of the proximal right humerus. No soft tissue calcifications or foreign body is seen. There is no left pneumothorax. IMPRESSION: 1. There is moderate osteoarthritic change of the left glenohumeral joint. 2. No fracture or dislocation is seen.
--- NOTE | ~2023-07-28 | XR_ITS ---
EXAMINATION: XR WRIST, RIGHT CLINICAL INFORMATION: Pain. COMPARISON: None available. TECHNIQUE: PA, lateral, and oblique views of the right wrist. FINDINGS: There is mild bony demineralization. There is a neutral ulnar variance. There is moderate osteoarthritic change of the first carpometacarpal joint. There is mild osteoarthritic change of the interphalangeal joint of the thumb and of the second through fifth proximal interphalangeal joints. There is mild osteoarthritic change of the first metacarpophalangeal joint. No fracture or dislocation is seen. The proximal and distal carpal rows are intact. There is degenerative change of the ulnocarpal articulation. No focal soft tissue swelling, gas or foreign body is seen. XR/XR wrist LT 2V IMPRESSION: There are multi-focal osteoarthritic changes of the right hand and wrist, as detailed. No fracture or dislocation is seen. There is no abnormal focal bone erosion. EXAMINATION: XR WRIST, LEFT CLINICAL INFORMATION: Pain. COMPARISON: None available. TECHNIQUE: PA, lateral, and oblique views of the left wrist. FINDINGS: There is mild bony demineralization. There is a neutral ulnar variance. There is marked osteoarthritic change of the first carpometacarpal joint. There is mild osteoarthritic change of the interphalangeal joint of the thumb. No fracture or dislocation is seen. The proximal and distal carpal rows are intact. There is a small focal erosion of the distal ulnar styloid. No focal soft tissue swelling, gas or foreign body is seen. IMPRESSION: 1. There is marked osteoarthritic change of the first carpometacarpal joint, and mild osteoarthritic change is seen of the interphalangeal joint of the thumb. 2. There is mild focal erosion of the distal margin of the ulnar styloid process, which can be seen in association with rheumatoid arthritis. Please clinically clinically.
--- NOTE | ~2023-07-28 | XR_ITS ---
EXAMINATION: XR CERVICAL SPINE CLINICAL INFORMATION: Cervicalgia. COMPARISON: None available. TECHNIQUE: Frontal, odontoid and lateral views of the cervical spine were obtained. FINDINGS: There is bony demineralization. At C3-C4, there is mild degenerative disc disease. At C5-C6 and C6-C7, there is marked degenerative disc disease, with anterior endplate arthropathy. No acute fracture or spondylolisthesis is seen. There is multi-level cervical facet arthropathy. The dens is intact. No prevertebral soft tissue swelling is seen. There are bilateral carotid atherosclerotic calcifications. XR/XR cervical spine 2V IMPRESSION: 1. There is marked degenerative disc disease at C5-C6 and C6-C7, and mild degenerative disc disease is seen at C3-C4. 2. No acute fracture or spondylolisthesis is seen. 3. There are bilateral carotid atherosclerotic calcifications, which can be more fully evaluated with dedicated carotid ultrasound, if clinically indicated.
[2023-07-28 07:55] LABS: Vitamin D 25-OH Total 40.8 ng/mL (>30)
[2023-07-28 07:57] LABS: Rheumatoid Factor < 13.0 IU/mL (<15.0)
[2023-07-28 08:07] LABS: Erythrocyte Sedimentation Rate 89 MM/HR (0-20)
[2023-07-29 09:19] LABS: Lyme Abs Screen <0.90 index
[2023-07-29 15:33] LABS: Anti Nuclear Antibody Screen NEGATIVE (NEGATIVE)
[2023-07-29 16:38] LABS: CRP High Sensitivity >10.0 mg/L
[2023-07-30 13:59] LABS: Cyclic Citrullinated Peptide <16 UNITS
[2023-07-30 14:59] LABS: Anti DNA DS Antibody <1 IU/mL
== END 2023-07-28 06:37 | disposition home or self-care (01) ==
LOC: HO.XRAY 06:36
PROVIDERS: PCP Internal Medicine; Visit Provider Internal Medicine
DX: E55.9 Vitamin D deficiency, unspecified (principal); M25.531 Pain in right wrist; M25.532 Pain in left wrist; M25.511 Pain in right shoulder; M25.512 Pain in left shoulder; M25.561 Pain in right knee; M25.562 Pain in left knee; M54.2 Cervicalgia; M25.50 Pain in unspecified joint
CPT/HCPCS: 36415; 72040; 73030; 73100; 73560; 82306; 85652; 86038; 86141; 86200; 86225; 86431; 86617; 86618

== ENCOUNTER 2023-07-29 14:52 | Outpatient (AMB) | payer MEDICARE, SELFPAY ==
--- NOTE | 2023-07-29 14:54 | MHC.OFFVIS ---
Intake Vital Signs 07/29/23 15:01 Height 5 ft 7 in Weight 177 lb 14.609 oz BMI 27.9 BP 160/70 H Blood Pressure Location Rt brachial Position Sitting Pulse 109 H Pulse Source Pulse Oximeter Pulse Oximetry (%) 98 Oxygen Delivery Method Room Air Intake Visit Reasons: Joint Pain/CM Intake Note: New patient, presents today for joint pain. Ssis Developer Required: No Accompanied by: Other Relationship Allergies No Known Allergies Allergy (Verified 07/29/23 14:55) Medication List - Last Reconciled 07/29/23 by María Ramirez MD calcium carbonate 600 mg PO BID 90 days cholecalciferol (vitamin D3) (Vitamin D3) 25 mcg PO DAILY 90 days simvastatin 10 mg PO BEDTIME 90 days HPI HPI Comments History of Present Illness Details This is a 73-year-old female who presents for evaluation of diffuse joint pain. The condition started back in June with right knee pain followed by left knee pain, bilateral wrist pain, bilateral shoulder pain and neck pain. Associated with swelling of her wrists and knees. States that her symptoms are worse in the morning, she takes Advil 200 mg once which takes the pain down from 01/27 to 910. She has stiffness lasting all day. Patient denies any recent history of respiratory or urinary infections. She denies any fevers or weight loss. She denies any history of DVT/PE. She is unaware of any family history of an autoimmune rheumatic disease. 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[employer] Cognitive needs: No Hearing needs: No Vision needs: No Female Reproductive History Menstrual Total pregnancies: 0 Review of Systems Const Denies fever(s) and Denies weight loss ENT Reports neck pain Musc Reports arthralgias, Reports joint swelling, Reports neck pain and Reports stiffness Physical Exam Vital Signs: Last Vital Signs Pulse 109 H 07/29/23 15:01 BP 160/70 H 07/29/23 15:01 Pulse Ox 98 07/29/23 15:01 Oxygen Delivery Method Room Air 07/29/23 15:01 BMI result Body Mass Index 27.9 Const General: cooperative, healthy appearing and comfortable Nutritional Appearance: overweight Orientation/consciousness: patient oriented x3 Limitations: no limitations HEENT Head: Yes normocephalic and Yes atraumatic Mouth: moist mucous membranes Resp Effort & Inspection: normal respiratory effort and able to speak in complete sentences Auscultation: crackles bilateral at the base Cardio Rate: regular rate and tachycardic Rhythm: regular rhythm Skin General skin exam: no rashes or lesions noted Neuro General: patient oriented x3 Extrem Other: Diffuse synovitis right wrist pain with flexion and extension Right 1st MCP swelling and tenderness Significant left wrist swelling and tenderness and pain with flexion and extension Significant shoulder stiffness Bilateral knee warmth swelling and pain with any range of motion Normal nailfold capillaroscopy Assessment & Plan Assessment & Plan (1) Polyarthralgia: Code(s): M25.50 - Pain in unspecified joint Plan: This is a 73-year-old female who presents for evaluation of additive inflammatory arthritis. On exam she has diffuse synovitis. Inflammatory markers elevated. Clinical picture consistent with new onset inflammatory arthritis. Will order comprehensive serology to screen for underlying autoimmune rheumatic disease. Start prednisone taper Follow-up in 3 weeks Plan I spent 47 minutes reviewing patient's chart, evaluating patient, ordering diagnostic workup, counseling patient and documenting in the chart Orders: Orders Complement C3 Today M32.9 - Systemic lupus erythematosus, unspecified DNA Double Stranded-Crithidia Today M32.9 - Systemic lupus erythematosus, unspecified Sjogren's Antibodies Today M32.9 - Systemic lupus erythematosus, unspecified T Spot TB Today Z11.7 - Encounter for testing for latent tuberculosis infection Angiotensin Converting Enzyme Today D86.9 - Sarcoidosis, unspecified HLA B27 Today M45.9 - Ankylosing spondylitis of unspecified sites in spine Anti Extractable Nuclear Ag Today M32.9 - Systemic lupus erythematosus, unspecified C Reactive Protein Today M32.9 - Systemic lupus erythematosus, unspecified Protein Creatinine Ratio, Ur Today M32.9 - Systemic lupus erythematosus, unspecified UA w Microscopic Today M32.9 - Systemic lupus erythematosus, unspecified Complete Blood Count Auto Diff Today M32.9 - Systemic lupus erythematosus, unspecified Hepatitis A,B,C Profile Today Z11.59 - Encounter for screening for other viral diseases Immunofixation Pnl, Serum Today M32.9 - Systemic lupus erythematosus, unspecified Protein Electrophoresis, Serum Today M32.9 - Systemic lupus erythematosus, unspecified Uric Acid Today M10.9 - Gout, unspecified ANCA Vasculitides Today I77.6 - Arteritis, unspecified Lysozyme, Serum Today D86.9 - Sarcoidosis, unspecified Medications: New prednisone take 3 tabs daily for 1 week, 2 tabs daily for 1 week, then remain on 1 tab daily 60 tabs 0RF Quality Reporting (2019) Adult ([facility] 138/06/11/68) Smoking risk assessment performed?: Yes Patient Tobacco Use Status: Former Tobacco user Coding Level of Care Code New Pt Level 4 (26861) Diagnoses Polyarthralgia M25.50
[2023-07-29 15:01] VITALS: BP 160/70; PULSE 109; O2SAT 98; BMI 27.9
== END 2023-07-29 16:02 | disposition home or self-care (01) ==
PROVIDERS: PCP Internal Medicine; Visit Provider Student in an Organized Health Care Education/Training Program
DX: M25.50 Pain in unspecified joint (principal)
CPT/HCPCS: 99204

== ENCOUNTER 2023-07-29 14:52 | Outpatient (REF) | payer MEDICARE, SELFPAY ==
[2023-07-29 16:08] LABS: MANUAL DIFF FLAG NO
[2023-07-29 16:30] LABS: Basophils Absolute Auto 0.1 X10*3/uL (0.0-0.2); Basophils Percent Auto 1.1 % (0-2); Eosinophils Absolute Auto 0.2 X10*3/uL (0.0-0.4); Eosinophils Percent Auto 2.1 % (0-4); Hematocrit 32.7 % (37.0-47.0); Hemoglobin 11.1 g/dl (12.0-16.0); Imm Gran Abs Auto 0.02 X10*3/uL (0.00-0.03); Imm Gran Pct Auto 0.3 % (0.0-0.4); Lymphocytes Absolute Auto 1.7 X10*3/uL (1.2-4.9); Lymphocytes Percent Auto 22.2 % (20-40); Mean Corpuscular HGB Conc 33.9 g/dl (31.0-35.0); Mean Corpuscular Hemoglobin 31.4 pg (27.0-33.0); Mean Corpuscular Volume 92.4 fL (80.0-98.0); Mean Platelet Volume 10.9 fL (9.4-12.3); Monocytes Absolute Auto 0.8 X10*3/uL (0.1-1.2); Monocytes Percent Auto 10.5 % (2-11); Neutrophils Absolute Auto 4.8 x10*3/uL (2.0-8.3); Neutrophils Percent Auto 63.8 % (45-73); Platelet Count 314 X10*3/uL (160-400); Red Blood Count 3.54 X10*6/uL (4.20-5.50); White Blood Count 7.5 X10*3/uL (4.8-10.8)
[2023-07-29 17:36] LABS: Appearance Urine Cloudy; Color Urine Yellow; Glucose Urine UA Negative (Negative); Leukocyte Esterase Urine Negative (Negative); Nitrite Urine Negative (Negative); Specific Gravity - Urine >= 1.030 (1.005-1.025); UMIC TRIGGER UA YES; Urine Blood Negative (Negative); Urine Ketones Trace mg/dL (Negative); Urine Protein 30 (1+) mg/dL (Neg-Trace)
[2023-07-29 18:00] LABS: Bacteria Urine None Seen (None Seen); Hyaline Casts Urine 0-2 /LPF (0-2); RBC Urine 0-2 /HPF (0-2); Squamous Epithelial Cell Urine 0-2 /HPF (0-2); WBC Urine 0-5 /HPF (0-5)
[2023-07-29 18:01] LABS: Other Crystals Urine Present
[2023-07-29 18:03] LABS: Creatinine Urine 339.66 mg/dL; Total Protein Urine Random 33 mg/dL (<12)
[2023-07-29 18:42] LABS: C Reactive Protein 9.02 mg/dL (< or = 0.50); Uric Acid 3.6 mg/dL (2.4-5.7)
[2023-07-30 05:19] LABS: HBS Num1 0.19 mIU/mL (0-7.99); HBc Num1 0.09 S/CO (0.00-0.79); HBsAGNum1 0.52 S/CO (0.00-0.99); Hepatitis A Antibody IgM 0.29 Index (0-0.79); Hepatitis B Core Antibody Nonreactive (Nonreactive); Hepatitis B Surface Antigen Negative (Negative); ~HepC Num1 0.13 S/CO (0.00-0.79); ~Hepatitis A Antibody IgM Nonreactive (Nonreactive); ~Hepatitis B Surface Antibody NONREACTIVE (Nonreactive); ~Hepatitis C Antibody Nonreactive (Nonreactive)
[2023-07-31 13:38] LABS: Complement C3 115 mg/dL (83-193)
[2023-07-31 21:05] LABS: Antibody to SS-A Antigen <1.0 NEG AI (<1.0 NEG); Antibody to SS-B Antigen <1.0 NEG AI (<1.0 NEG); Myeloperoxidase Antibody <1.0 AI; Proteinase 3 PR3 Antibodies <1.0 AI; SM/Ribonucleoprotein Ab <1.0 NEG AI (<1.0 NEG); Smith Protein <1.0 NEG AI (<1.0 NEG)
[2023-07-31 22:03] LABS: Prot Elec - Alpha1 0.6 g/dL (0.2-0.3); Prot Elec - Alpha2 1.3 g/dL (0.5-0.9); Prot Elec - Beta 1 0.5 g/dL (0.4-0.6); Prot Elec - Beta 2 0.5 g/dL (0.2-0.5); Prot Elec - Gamma 1.2 g/dL (0.8-1.7)
[2023-07-31 22:18] LABS: TS Negative Control Passed; TS Panel A 0; TS Panel B 0; TS Positive Control Passed; TSpotTB Negative (Negative)
[2023-08-04 09:58] LABS: HLA B27 Negative (Negative)
[2023-08-04 13:39] LABS: Lysozyme, Serum 9.6 mcg/mL (5.0-11.0)
[2023-08-04 22:02] LABS: Angiotensin Converting Enzyme 28 U/L (9-67)
[2023-08-05 19:29] LABS: DNAds, Crithidia Antibody Negative (Negative)
[2023-08-06 09:33] LABS: IgA 285 mg/dL (70-320); IgG 1302 mg/dL (600-1540); IgM 105 mg/dL (50-300)
== END 2023-07-29 14:53 | disposition home or self-care (01) ==
LOC: HO.LAB 14:52
PROVIDERS: PCP Internal Medicine; Visit Provider Student in an Organized Health Care Education/Training Program
DX: I77.6 Arteritis, unspecified (principal); D86.9 Sarcoidosis, unspecified; M32.9 Systemic lupus erythematosus, unspecified; M45.9 Ankylosing spondylitis of unspecified sites in spine; M10.9 Gout, unspecified; M25.50 Pain in unspecified joint; Z11.7 Encounter for testing for latent tuberculosis infection; Z11.59 Encounter for screening for other viral diseases; Z72.89 Other problems related to lifestyle
CPT/HCPCS: 36415; 81001; 82164; 82570; 82784; 84156; 84165; 84550; 85025; 85549; 86021; 86140; 86160; 86235; 86255; 86334; 86481; 86704; 86706; 86709; 86803; 86812; 87340; 99202

== ENCOUNTER 2023-08-13 09:44 | Outpatient (REF) | payer MEDICARE, SELFPAY ==
--- NOTE | ~2023-08-13 | US_ITS ---
EXAMINATION: US EXTRACRANIAL CAROTID DUPLEX, BILATERAL CLINICAL INFORMATION: Occlusion/stenosis bilateral carotid arteries COMPARISON: None available. TECHNIQUE: Real-time ultrasound and Doppler techniques (integrating B-mode 2-D vascular images, Doppler spectral analysis and color-flow Doppler imaging) were utilized to interrogate the extracranial carotid arteries, the vertebral arteries and proximal subclavian arteries bilaterally. The degree of stenosis is determined by criteria similar to NASCET. FINDINGS: Right Side: 1. There is mild atherosclerotic plaque seen in the bifurcation/proximal ICA region. 2. The common carotid artery PSV proximally is 96 cm/s and distally 76 cm/s. 3. The proximal internal carotid artery velocities are 75 cm/s systolic and 17 cm/s diastolic. 4. The proximal external carotid artery PSV is 114 cm/s. 5. The vertebral artery shows antegrade flow. 6. The subclavian artery waveforms are normal. Left Side: 1. There is mild atherosclerotic plaque seen in the bifurcation/proximal ICA region. 2. The common carotid artery PSV proximally is 123 cm/s and distally 87 cm/s. 3. The proximal internal carotid artery velocities are 87 cm/s systolic and 23 cm/s diastolic. 4. The proximal external carotid artery PSV is 124 cm/s. 5. The vertebral artery shows antegrade flow. 6. The subclavian artery waveforms are normal. US/US carotid duplex BI IMPRESSION: 1. RIGHT: Minimal, non-hemodynamically significant stenosis of the proximal right internal carotid artery corresponding to a 0-49% stenosis by velocity criteria. 2. LEFT: Minimal, non-hemodynamically significant stenosis of the proximal left internal carotid artery corresponding to a 0-49% stenosis by velocity criteria.
== END 2023-08-13 09:45 | disposition home or self-care (01) ==
LOC: HO.US 09:44
PROVIDERS: PCP Internal Medicine; Visit Provider Internal Medicine
DX: I65.23 Occlusion and stenosis of bilateral carotid arteries (principal)
CPT/HCPCS: 93880

== ENCOUNTER 2023-08-17 10:26 | Outpatient (AMB) | payer MEDICARE, SELFPAY ==
[2023-08-17 10:31] VITALS: BP 164/68; PULSE 100; O2SAT 97; BMI 27.6
--- NOTE | 2023-08-17 10:31 | MHC.OFFVIS ---
Vital Signs 08/17/23 10:31 Height 5 ft 7 in Weight 176 lb 5.917 oz BMI 27.6 BP 164/68 H Blood Pressure Location Rt brachial Position Sitting Pulse 100 Pulse Source Pulse Oximeter Pulse Oximetry (%) 97 Oxygen Delivery Method Room Air Intake Visit Reasons: RA Intake Note: Patient last seen 07/29/23 presents today for follow up and test results. currently on 10mg of prednisone daily, has no pain today Alemite Operator Required: No Accompanied by: Self / Same As Patient Allergies No Known Allergies Allergy (Verified 08/17/23 10:34) Medication List - Last Reconciled 08/17/23 by María Ramirez MD calcium carbonate 600 mg PO BID 90 days cholecalciferol (vitamin D3) (Vitamin D3) 25 mcg PO DAILY 90 days prednisone take 3 tabs daily for 1 week, 2 tabs daily for 1 week, then remain on 1 tab daily simvastatin 10 mg PO BEDTIME 90 days HPI Comments Details: 73-year-old female with new onset inflammatory arthritis returns for follow-up after completion of her diagnostic workup. States that prednisone taper was quite helpful. She is currently on 10 mg daily. Initial history: This is a 73-year-old female who presents for evaluation of diffuse joint pain. The condition started back in June with right knee pain followed by left knee pain, bilateral wrist pain, bilateral shoulder pain and neck pain. Associated with swelling of her wrists and knees. States that her symptoms are worse in the morning, she takes Advil 200 mg once which takes the pain down from 10/10 to 9/10. She has stiffness lasting all day. Patient denies any recent history of respiratory or urinary infections. She denies any fevers or weight loss. She denies any history of DVT/PE. She is unaware of any family history of an autoimmune rheumatic disease. [facility] Medical History Elevated blood pressure reading without diagnosis of hypertension Osteopenia Dyslipidemia IBS (irritable bowel syndrome) Surgical History Keloid History of removal of ovarian cyst Family History Father Renal failure Mother Dementia Social History (Reviewed 08/17/23 @ 10:39 by RONEN Morrissey Housing: House Alcohol intake: current Alcohol intake frequency: a few times a month Alcohol type: beer Patient Tobacco Use Status: Former Tobacco user Tobacco use type: Cigarette e-Cigarette/Vaping Use: Never Used Second Hand Smoke Exposure: No service: No Current occupational status: retired 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[employer] Cognitive needs: No Hearing needs: No Vision needs: No Female Reproductive History Menstrual Total pregnancies: 0 Review of Systems Const Denies fever(s) and Denies weight loss Musc Reports arthralgias, Reports joint swelling and Reports stiffness Physical Exam Vital Signs: Last Vital Signs Pulse 100 08/17/23 10:31 BP 164/68 H 08/17/23 10:31 Pulse Ox 97 08/17/23 10:31 Oxygen Delivery Method Room Air 08/17/23 10:31 BMI result Body Mass Index 27.6 Const General: cooperative, healthy appearing and comfortable Nutritional Appearance: overweight Orientation/consciousness: patient oriented x3 Limitations: no limitations HEENT Head: Yes normocephalic and Yes atraumatic Mouth: moist mucous membranes Resp Effort & Inspection: normal respiratory effort and able to speak in complete sentences Cardio Rate: regular rate and tachycardic Rhythm: regular rhythm Skin General skin exam: no rashes or lesions noted Neuro General: patient oriented x3 Extrem Other: Synovitis significantly improved Right wrist swelling and tenderness Bilateral knee warmth, mild right knee swelling Quality Reporting (2019) Adult ([facility] 138//) Smoking risk assessment performed?: Yes Patient Tobacco Use Status: Former Tobacco user Results Reviewed Results Reviewed: [address] [address] XRay Report Signed Patient: Marie Ramsey MR#: [id number] : 1950 Acct:[id number] Age/Sex: 73 / F ADM Date: 07/28/23 Loc: [facility] Attending Dr: Gina Zapien MD Ordering Physician: Gina Hinton MD Date of Service: 07/28/23 Procedure(s): XR wrist RT 2V Accession Number(s): [id number] cc: Gina Hinton MD~ EXAMINATION: XR WRIST, RIGHT CLINICAL INFORMATION: Pain. COMPARISON: None available. TECHNIQUE: PA, lateral, and oblique views of the right wrist. FINDINGS: There is mild bony demineralization. There is a neutral ulnar variance. There is moderate osteoarthritic change of the first carpometacarpal joint. There is mild osteoarthritic change of the interphalangeal joint of the thumb and of the second through fifth proximal interphalangeal joints. There is mild osteoarthritic change of the first metacarpophalangeal joint. No fracture or dislocation is seen. The proximal and distal carpal rows are intact. There is degenerative change of the ulnocarpal articulation. No focal soft tissue swelling, gas or foreign body is seen. XR/XR wrist RT 2V IMPRESSION: There are multi-focal osteoarthritic changes of the right hand and wrist, as detailed. No fracture or dislocation is seen. There is no abnormal focal bone erosion. EXAMINATION: XR WRIST, LEFT CLINICAL INFORMATION: Pain. COMPARISON: None available. TECHNIQUE: PA, lateral, and oblique views of the left wrist. FINDINGS: There is mild bony demineralization. There is a neutral ulnar variance. There is marked osteoarthritic change of the first carpometacarpal joint. There is mild osteoarthritic change of the interphalangeal joint of the thumb. No fracture or dislocation is seen. The proximal and distal carpal rows are intact. There is a small focal erosion of the distal ulnar styloid. No focal soft tissue swelling, gas or foreign body is seen. IMPRESSION: 1. There is marked osteoarthritic change of the first carpometacarpal joint, and mild osteoarthritic change is seen of the interphalangeal joint of the thumb. 2. There is mild focal erosion of the distal margin of the ulnar styloid process, which can be seen in association with rheumatoid arthritis. Please clinically clinically. Assessment & Plan Assessment & Plan (1) Seronegative rheumatoid arthritis: Comment: -ve RF -ve CCP erosive dx 07/2023 Code(s): M06.00 - Rheumatoid arthritis without rheumatoid factor, unspecified site Category: Medical Plan: This is a 73-year-old female who presents for evaluation of inflammatory arthritis. On exam patient had diffuse synovitis responsive to prednisone. Serologies are negative with significantly elevated inflammatory markers. Is no psoriasis on exam. Clinical picture consistent with new onset seronegative RA. Will need to start DMARDs. Discussed risks and benefits of methotrexate. Patient agreed to proceed. 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 Panel 2 Months Z79.631 - nursing home (current) use of antimetabolite agent Medications: New methotrexate sodium orally; take 6 tabs weekly for 2 weeks then 8 tabs weekly 64 tabs 0RF folic acid 1 mg PO DAILY 90 tabs 0RF Coding Level of Care Code Est Pt Level 4 (00935) Diagnoses Seronegative rheumatoid arthritis M06.00 nursing home methotrexate user Z79.631
== END 2023-08-17 11:09 | disposition home or self-care (01) ==
PROVIDERS: PCP Internal Medicine; Visit Provider Student in an Organized Health Care Education/Training Program
DX: M06.00 Rheumatoid arthritis without rheumatoid factor, unspecified site (principal); Z79.631 Long term (current) use of antimetabolite agent
CPT/HCPCS: 99214

== ENCOUNTER → 2023-08-17 10:26 | Outpatient (BNVA) | payer MEDICARE, SELFPAY | PROVIDERS: PCP Internal Medicine; Visit Provider Student in an Organized Health Care Education/Training Program | DX: M06.00 Rheumatoid arthritis without rheumatoid factor, unspecified site (principal); Z79.631 Long term (current) use of antimetabolite agent | CPT/HCPCS: 99212 ==

== ENCOUNTER 2023-10-09 05:58 | Outpatient (REF) | payer MEDICARE, SELFPAY ==
[2023-10-09 06:15] LABS: MANUAL DIFF FLAG NO
[2023-10-09 07:00] LABS: Basophils Absolute Auto 0.1 X10*3/uL (0.0-0.2); Basophils Percent Auto 1.2 % (0-2); Eosinophils Absolute Auto 0.2 X10*3/uL (0.0-0.4); Eosinophils Percent Auto 2.6 % (0-4); Hematocrit 35.2 % (37.0-47.0); Hemoglobin 11.9 g/dl (12.0-16.0); Imm Gran Abs Auto 0.02 X10*3/uL (0.00-0.03); Imm Gran Pct Auto 0.2 % (0.0-0.4); Lymphocytes Absolute Auto 2.4 X10*3/uL (1.2-4.9); Mean Corpuscular HGB Conc 33.8 g/dl (31.0-35.0); Mean Corpuscular Hemoglobin 31.5 pg (27.0-33.0); Mean Corpuscular Volume 93.1 fL (80.0-98.0); Mean Platelet Volume 10.7 fL (9.4-12.3); Monocytes Absolute Auto 0.6 X10*3/uL (0.1-1.2); Monocytes Percent Auto 7.3 % (2-11); Neutrophils Absolute Auto 4.9 x10*3/uL (2.0-8.3); Neutrophils Percent Auto 59.7 % (45-73); Platelet Count 369 X10*3/uL (160-400); Red Blood Count 3.78 X10*6/uL (4.20-5.50); Red Cell Distribution Width 15.5 % (11.0-16.0); White Blood Count 8.1 X10*3/uL (4.8-10.8)
[2023-10-09 07:17] LABS: Alanine Aminotransferase 8 U/L (0-31); Albumin Level 3.6 g/dL (3.5-5.0); Alkaline Phosphatase 76 U/L (39-117); Anion Gap 13 (12-20); Aspartate Amino Transferase 18 U/L (5-31); Bilirubin Total 0.3 mg/dL (0.0-1.0); Blood Urea Nitrogen 9 mg/dL (9-16); C Reactive Protein 1.96 mg/dL (< or = 0.50); Calcium 9.7 mg/dL (8.4-10.2); Carbon Dioxide 24 mmol/L (22-29); Chloride 105 mmol/L (96-108); Estimated Glomerular Filt Rate > 60; Glucose Random 103 mg/dL (60-115); Potassium 4.3 mmol/L (3.3-5.1); Sodium 138 mmol/L (135-145); Total Protein 7.5 g/dL (6.5-8.0)
[2023-10-09 08:19] LABS: Erythrocyte Sedimentation Rate 74 MM/HR (0-20)
== END 2023-10-09 05:59 | disposition home or self-care (01) ==
LOC: HO.LAB 05:58
PROVIDERS: PCP Internal Medicine; Visit Provider Student in an Organized Health Care Education/Training Program
DX: M06.00 Rheumatoid arthritis without rheumatoid factor, unspecified site (principal); Z79.631 Long term (current) use of antimetabolite agent
CPT/HCPCS: 36415; 80053; 85025; 85652; 86140

== ENCOUNTER 2023-10-13 08:32 | Outpatient (AMB) | payer MEDICARE, SELFPAY ==
--- NOTE | 2023-10-13 08:46 | MHC.OFFVIS ---
Vital Signs 10/13/23 08:52 Height 5 ft 7 in Weight 166 lb 14.239 oz BMI 26.1 BP 162/84 H Blood Pressure Location Rt brachial Position Sitting Pulse 117 H Pulse Source Pulse Oximeter Pulse Oximetry (%) 97 Oxygen Delivery Method Room Air Intake Visit Reasons: RA/LM Intake Note: Pt seen today for RA follow up. Reports joint pain worse in knees and shoulders. States nothing is helping. 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 She has been on methotrexate 20 mg weekly for the last 2 months. She states that she feels much worse overall. Continues to have ongoing pains in her joints, especially shoulders, wrists, knuckles, knees. She can hardly walk. She has a trip to [place] planned next week and feels that she might not be able to walk. She states that prednisone was quite helpful. Initial history: This is a 73-year-old female who presents for evaluation of diffuse joint pain. The condition started back in June with right knee pain followed by left knee pain, bilateral wrist pain, bilateral shoulder pain and neck pain. Associated with swelling of her wrists and knees. States that her symptoms are worse in the morning, she takes Advil 200 mg once which takes the pain down from 10/10 to 9/10. She has stiffness lasting all day. Patient denies any recent history of respiratory or urinary infections. She denies any fevers or weight loss. She denies any history of DVT/PE. She is unaware of any family history of an autoimmune rheumatic disease. 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[employer] Cognitive needs: No Hearing needs: No Vision needs: No Female Reproductive History Menstrual Total pregnancies: 0 Review of Systems Const Denies fever(s) and Denies weight loss Musc Reports arthralgias, Reports joint swelling and Reports stiffness Physical Exam Vital Signs: Last Vital Signs Pulse 117 H 10/13/23 08:52 BP 162/84 H 10/13/23 08:52 Pulse Ox 97 10/13/23 08:52 Oxygen Delivery Method Room Air 10/13/23 08:52 BMI result Body Mass Index 26.1 Const General: cooperative, healthy appearing and comfortable Nutritional Appearance: overweight Orientation/consciousness: patient oriented x3 Limitations: no limitations HEENT Head: Yes normocephalic and Yes atraumatic Mouth: moist mucous membranes Resp Effort & Inspection: normal respiratory effort and able to speak in complete sentences Cardio Rate: regular rate and tachycardic Rhythm: regular rhythm Skin General skin exam: no rashes or lesions noted Neuro General: patient oriented x3 Extrem Other: Mild bilateral wrist swelling, tenderness pain with any range of motion Few bilateral tender MCPs but no significant swelling Significantly reduced hand spray gun sizer strength Significantly reduced shoulder abduction bilaterally Bilateral mild knee warmth, swelling and pain with any range of motion No ankle swelling or tenderness Quality Reporting (2019) Adult ([facility] 138/06/11/68) Smoking risk assessment performed?: Yes Patient Tobacco Use Status: Former Tobacco user Results Reviewed Results Reviewed: [address] [address] XRay Report Signed Patient: Marie Ramsey MR#: [id number] : 1950 Acct:[id number] Age/Sex: 73 / F ADM Date: 07/28/23 Loc: [facility] Attending Dr: Gina Zapien MD Ordering Physician: Gina Hinton MD Date of Service: 07/28/23 Procedure(s): XR wrist RT 2V Accession Number(s): [id number] cc: Gina Hinton MD~ EXAMINATION: XR WRIST, RIGHT CLINICAL INFORMATION: Pain. COMPARISON: None available. TECHNIQUE: PA, lateral, and oblique views of the right wrist. FINDINGS: There is mild bony demineralization. There is a neutral ulnar variance. There is moderate osteoarthritic change of the first carpometacarpal joint. There is mild osteoarthritic change of the interphalangeal joint of the thumb and of the second through fifth proximal interphalangeal joints. There is mild osteoarthritic change of the first metacarpophalangeal joint. No fracture or dislocation is seen. The proximal and distal carpal rows are intact. There is degenerative change of the ulnocarpal articulation. No focal soft tissue swelling, gas or foreign body is seen. XR/XR wrist RT 2V IMPRESSION: There are multi-focal osteoarthritic changes of the right hand and wrist, as detailed. No fracture or dislocation is seen. There is no abnormal focal bone erosion. EXAMINATION: XR WRIST, LEFT CLINICAL INFORMATION: Pain. COMPARISON: None available. TECHNIQUE: PA, lateral, and oblique views of the left wrist. FINDINGS: There is mild bony demineralization. There is a neutral ulnar variance. There is marked osteoarthritic change of the first carpometacarpal joint. There is mild osteoarthritic change of the interphalangeal joint of the thumb. No fracture or dislocation is seen. The proximal and distal carpal rows are intact. There is a small focal erosion of the distal ulnar styloid. No focal soft tissue swelling, gas or foreign body is seen. IMPRESSION: 1. There is marked osteoarthritic change of the first carpometacarpal joint, and mild osteoarthritic change is seen of the interphalangeal joint of the thumb. 2. There is mild focal erosion of the distal margin of the ulnar styloid process, which can be seen in association with rheumatoid arthritis. Please clinically clinically. Assessment & Plan Assessment & Plan (1) Seronegative rheumatoid arthritis: Comment: -ve RF -ve CCP erosive dx 07/2023 MTX 07/2023 partially effective Code(s): M06.00 - Rheumatoid arthritis without rheumatoid factor, unspecified site Category: Medical Plan: This is a 73-year-old female with seronegative RA who presents for follow-up. Has been on methotrexate 20 mg weekly for the last 2 months with some improvement, less swollen joints, inflammatory markers improved but continues to have significant joint pain, multiple swollen joints, inflammatory markers remain elevated. Will need to add a DMARD. Discussed risks and benefits of TNF inhibitors. Patient agreed to proceed. Will start prior authorization for Enbrel. Continue methotrexate 20 mg weekly plus folic acid 1 mg daily Start prednisone taper for relief. 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 Category: Medical Plan: Monitor safety labs Plan I spent 35 minutes reviewing patient's chart, evaluating patient, ordering diagnostic workup, counseling patient and documenting in the chart Orders: Orders C Reactive Protein 2 Months M06.00 - Rheumatoid arthritis without rheumatoid factor, unspecified site, Z79.631 - residential (current) use of antimetabolite agent Erythrocyte Sedimentation Rate 2 Months M06.00 - Rheumatoid arthritis without rheumatoid factor, unspecified site, Z79.631 - residential (current) use of antimetabolite agent Complete Blood Count Auto Diff 2 Months M06.00 - Rheumatoid arthritis without rheumatoid factor, unspecified site, Z79.631 - residential (current) use of antimetabolite agent Comprehensive Met. 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
[2023-10-13 08:52] VITALS: BP 162/84; PULSE 117; O2SAT 97; BMI 26.1
== END 2023-10-13 09:12 | disposition home or self-care (01) ==
PROVIDERS: PCP Internal Medicine; Visit Provider Student in an Organized Health Care Education/Training Program
DX: M06.00 Rheumatoid arthritis without rheumatoid factor, unspecified site (principal); Z79.631 Long term (current) use of antimetabolite agent
CPT/HCPCS: 99214

== ENCOUNTER → 2023-10-13 08:32 | Outpatient (BNVA) | payer MEDICARE, SELFPAY | PROVIDERS: PCP Internal Medicine; Visit Provider Student in an Organized Health Care Education/Training Program | DX: M06.00 Rheumatoid arthritis without rheumatoid factor, unspecified site (principal); M85.80 Other specified disorders of bone density and structure, unspecified site; Z79.631 Long term (current) use of antimetabolite agent | CPT/HCPCS: 99212 ==

== ENCOUNTER 2023-12-11 06:01 | Outpatient (REF) | payer MEDICARE, SELFPAY ==
[2023-12-11 06:30] LABS: MANUAL DIFF FLAG NO
[2023-12-11 07:10] LABS: Basophils Absolute Auto 0.1 X10*3/uL (0.0-0.2); Basophils Percent Auto 1.4 % (0-2); Eosinophils Absolute Auto 0.2 X10*3/uL (0.0-0.4); Eosinophils Percent Auto 2.1 % (0-4); Hematocrit 34.9 % (37.0-47.0); Hemoglobin 11.7 g/dl (12.0-16.0); Imm Gran Abs Auto 0.02 X10*3/uL (0.00-0.03); Imm Gran Pct Auto 0.3 % (0.0-0.4); Lymphocytes Absolute Auto 2.1 X10*3/uL (1.2-4.9); Lymphocytes Percent Auto 27.6 % (20-40); Mean Corpuscular HGB Conc 33.5 g/dl (31.0-35.0); Mean Corpuscular Hemoglobin 33.1 pg (27.0-33.0); Mean Corpuscular Volume 98.6 fL (80.0-98.0); Mean Platelet Volume 10.4 fL (9.4-12.3); Monocytes Absolute Auto 0.6 X10*3/uL (0.1-1.2); Neutrophils Absolute Auto 4.6 x10*3/uL (2.0-8.3); Neutrophils Percent Auto 60.6 % (45-73); Platelet Count 341 X10*3/uL (160-400); Red Blood Count 3.54 X10*6/uL (4.20-5.50); Red Cell Distribution Width 15.9 % (11.0-16.0); White Blood Count 7.6 X10*3/uL (4.8-10.8)
[2023-12-11 07:44] LABS: Alanine Aminotransferase 12 U/L (0-31); Albumin Level 3.8 g/dL (3.5-5.0); Alkaline Phosphatase 89 U/L (39-117); Anion Gap 12 (12-20); Aspartate Amino Transferase 22 U/L (5-31); Bilirubin Total 0.6 mg/dL (0.0-1.0); Blood Urea Nitrogen 9 mg/dL (9-16); C Reactive Protein 1.25 mg/dL (< or = 0.50); Calcium 9.5 mg/dL (8.4-10.2); Carbon Dioxide 27 mmol/L (22-29); Chloride 106 mmol/L (96-108); Estimated Glomerular Filt Rate > 60; Glucose Random 97 mg/dL (60-115); Potassium 3.9 mmol/L (3.3-5.1); Sodium 141 mmol/L (135-145); Total Protein 7.1 g/dL (6.5-8.0)
[2023-12-11 07:55] LABS: Erythrocyte Sedimentation Rate 48 MM/HR (0-20)
== END 2023-12-11 06:02 | disposition home or self-care (01) ==
LOC: HO.LAB 06:01
PROVIDERS: PCP Internal Medicine; Visit Provider Student in an Organized Health Care Education/Training Program
DX: M06.00 Rheumatoid arthritis without rheumatoid factor, unspecified site (principal); Z79.631 Long term (current) use of antimetabolite agent
CPT/HCPCS: 36415; 80053; 85025; 85652; 86140

== ENCOUNTER 2023-12-17 07:38 | Outpatient (AMB) | payer MEDICARE, SELFPAY ==
--- NOTE | 2023-12-17 07:55 | MHC.OFFVIS ---
Vital Signs 12/17/23 07:58 Height 5 ft 7 in Weight 168 lb 13.985 oz BMI 26.4 BP 162/90 H Blood Pressure Location Rt brachial Position Sitting Pulse 88 Pulse Source Palpation Temp 96.6 F L Temp Source Temporal Artery Scan Intake Visit Reasons: RA Allergies No Known Allergies Allergy (Verified 10/13/23 08:52) Medication List - Last Reconciled 12/17/23 by María Ramirez MD calcium carbonate 600 mg PO BID 90 days cholecalciferol (vitamin D3) (Vitamin D3) 25 mcg PO DAILY 90 days folic acid 1 mg PO DAILY insulin syringe-needle U-100 (Advocate Syringes) Use once weekly with methotrexate methotrexate sodium (PF) 25 mg subcut QWEEK prednisone Take 2 tabs daily for 1 week, 1 tab daily for 2 weeks then 1/2 tab daily for 1 week then stop simvastatin 10 mg PO BEDTIME 90 days HPI Comments Details: 73-year-old female with seronegative RA returns for follow-up. She has been using methotrexate subcutaneously 25 mg weekly for the last 2 months or so. She states that she feels some improvement. She continues to have pain in her shoulders as well as her hands, wrists, knees. She can not think of any side effects related to methotrexate. Initial history: This is a 73-year-old female who presents for evaluation of diffuse joint pain. The condition started back in June with right knee pain followed by left knee pain, bilateral wrist pain, bilateral shoulder pain and neck pain. Associated with swelling of her wrists and knees. States that her symptoms are worse in the morning, she takes Advil 200 mg once which takes the pain down from 10/10 to 9/10. She has stiffness lasting all day. Patient denies any recent history of respiratory or urinary infections. She denies any fevers or weight loss. She denies any history of DVT/PE. She is unaware of any family history of an autoimmune rheumatic disease. 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 [employer] Cognitive needs: No Hearing needs: No Vision needs: No Female Reproductive History Menstrual Total pregnancies: 0 Review of Systems Const Denies fever(s) and Denies weight loss Musc Reports arthralgias, Reports joint swelling and Reports stiffness Physical Exam Const General: cooperative, healthy appearing and comfortable Nutritional Appearance: overweight Orientation/consciousness: patient oriented x3 Limitations: no limitations HEENT Head: Yes normocephalic and Yes atraumatic Mouth: moist mucous membranes Resp Effort & Inspection: normal respiratory effort and able to speak in complete sentences Cardio Rate: regular rate and tachycardic Rhythm: regular rhythm Skin General skin exam: no rashes or lesions noted Neuro General: patient oriented x3 Extrem Other: Mild bilateral wrist swelling, tenderness pain with any range of motion Bilateral reduced shoulder abduction Significantly reduced shoulder abduction bilaterally Bilateral mild knee warmth, and pain with any range of motion No ankle swelling or tenderness Quality Reporting (2019) Adult ([facility] 138/06/11/68) Smoking risk assessment performed?: Yes Patient Tobacco Use Status: Former Tobacco user Results Reviewed Results Reviewed: [address] [address] XRay Report Signed Patient: Marie Ramsey MR#: [id number] : 1950 Acct:[id number] Age/Sex: 73 / F ADM Date: 07/28/23 Loc: HO.XRAY Attending Dr: Gina Zapien MD Ordering Physician: Gina Hinton MD Date of Service: 07/28/23 Procedure(s): XR wrist RT 2V Accession Number(s): [id number] cc: Gina Hinton MD~ EXAMINATION: XR WRIST, RIGHT CLINICAL INFORMATION: Pain. COMPARISON: None available. TECHNIQUE: PA, lateral, and oblique views of the right wrist. FINDINGS: There is mild bony demineralization. There is a neutral ulnar variance. There is moderate osteoarthritic change of the first carpometacarpal joint. There is mild osteoarthritic change of the interphalangeal joint of the thumb and of the second through fifth proximal interphalangeal joints. There is mild osteoarthritic change of the first metacarpophalangeal joint. No fracture or dislocation is seen. The proximal and distal carpal rows are intact. There is degenerative change of the ulnocarpal articulation. No focal soft tissue swelling, gas or foreign body is seen. XR/XR wrist RT 2V IMPRESSION: There are multi-focal osteoarthritic changes of the right hand and wrist, as detailed. No fracture or dislocation is seen. There is no abnormal focal bone erosion. EXAMINATION: XR WRIST, LEFT CLINICAL INFORMATION: Pain. COMPARISON: None available. TECHNIQUE: PA, lateral, and oblique views of the left wrist. FINDINGS: There is mild bony demineralization. There is a neutral ulnar variance. There is marked osteoarthritic change of the first carpometacarpal joint. There is mild osteoarthritic change of the interphalangeal joint of the thumb. No fracture or dislocation is seen. The proximal and distal carpal rows are intact. There is a small focal erosion of the distal ulnar styloid. No focal soft tissue swelling, gas or foreign body is seen. IMPRESSION: 1. There is marked osteoarthritic change of the first carpometacarpal joint, and mild osteoarthritic change is seen of the interphalangeal joint of the thumb. 2. There is mild focal erosion of the distal margin of the ulnar styloid process, which can be seen in association with rheumatoid arthritis. Please clinically clinically. Assessment & Plan Assessment & Plan (1) Seronegative rheumatoid arthritis: Comment: -ve RF -ve CCP erosive dx 07/2023 MTX 07/2023 partially effective, switched to SQ 09/2023 Code(s): M06.00 - Rheumatoid arthritis without rheumatoid factor, unspecified site Category: Medical Plan: This is a 73-year-old female with seronegative RA who presents for follow-up. Doing better on methotrexate 25 mg subcutaneously weekly. Continues to have multiple swollen and tender joints. Inflammatory markers improving. We will need to add DMARDs. Enbrel was denied by insurance. Discussed triple therapy versus biologics. 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 Panel 10 Weeks M06.00 - Rheumatoid arthritis without rheumatoid factor, unspecified site, Z79.631 - assisted (current) use of antimetabolite agent Complete Blood Count Auto Diff 10 Weeks M06.00 - Rheumatoid arthritis without rheumatoid factor, unspecified site, Z79.631 - continuous churn buttermaker (current) use of antimetabolite agent C Reactive Protein 10 Weeks M06.00 - Rheumatoid arthritis without rheumatoid factor, unspecified site, Z79.631 - assisted (current) use of antimetabolite agent Erythrocyte Sedimentation Rate 10 Weeks M06.00 - Rheumatoid arthritis without rheumatoid factor, unspecified site, Z79.631 - continuous churn buttermaker (current) use of antimetabolite agent Medications: New sulfasalazine orally; give with food (meal/snack) Take 1 tab twice daily for 1 week, 2 tabs in the morning and 1 tab at night for 1 week then 2 tabs Twice daily 360 tabs 0RF Changed From prednisone Take 2 tabs daily for 1 week, 1 tab daily for 2 weeks then 1/2 tab daily for 1 week then stop 33 tabs 1RF To prednisone 10 mg PO DAILY PRN 15 tabs 1RF pain Refilled methotrexate sodium (PF) draw 1 mL (25 mg) & discard the rest 25 mg subcut QWEEK 20 mL 2RF Coding Level of Care Code Est Pt Level 4 (90312) Diagnoses Seronegative rheumatoid arthritis M06.00 continuous churn buttermaker 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
[2023-12-17 07:58] VITALS: BP 162/90; PULSE 88; TEMP 35.9; BMI 26.4
== END 2023-12-17 08:14 | disposition home or self-care (01) ==
PROVIDERS: PCP Internal Medicine; Visit Provider Student in an Organized Health Care Education/Training Program
DX: M06.00 Rheumatoid arthritis without rheumatoid factor, unspecified site (principal); Z79.631 Long term (current) use of antimetabolite agent; Z71.85 Encounter for immunization safety counseling
CPT/HCPCS: 99214

== ENCOUNTER → 2023-12-17 07:38 | Outpatient (BNVA) | payer MEDICARE, SELFPAY | PROVIDERS: PCP Internal Medicine; Visit Provider Student in an Organized Health Care Education/Training Program | DX: M06.00 Rheumatoid arthritis without rheumatoid factor, unspecified site (principal); M85.80 Other specified disorders of bone density and structure, unspecified site; Z79.631 Long term (current) use of antimetabolite agent; Z71.85 Encounter for immunization safety counseling | CPT/HCPCS: 99212 ==

== ENCOUNTER 2024-01-28 08:09 | Outpatient (AMB) | payer MEDICARE, SELFPAY ==
--- NOTE | 2024-01-28 08:24 | MHC.PC.OV ---
Vital Signs 01/28/24 08:25 Height 5 ft 7 in Weight 170 lb BMI 26.6 BP 164/80 H Blood Pressure Location Lt brachial Position Sitting Intake Visit Reasons: blood glucose Land Conservation Specialist Required: No Accompanied by: Self / Same As Patient Allergies No Known Allergies Allergy (Verified 01/28/24 08:37) Medication List - Last Reconciled 01/28/24 by Gina Zapien MD calcium carbonate 600 mg PO BID 90 days cholecalciferol (vitamin D3) (Vitamin D3) 25 mcg PO DAILY 90 days folic acid 1 mg PO DAILY insulin syringe-needle U-100 (Advocate Syringes) Use once weekly with methotrexate methotrexate sodium (PF) 25 mg subcut QWEEK prednisone 10 mg PO DAILY PRN simvastatin 10 mg PO BEDTIME 90 days sulfasalazine orally; give with food (meal/snack) Take 1 tab twice daily for 1 week, 2 tabs in the morning and 1 tab at night for 1 week then 2 tabs Twice daily Tobacco use date assessed: 01/28/24 Fall risk assessment: No Falls in past year Last assessed Fall Risk: 01/28/24 Dental Screening Dental Screen Date: 01/28/24 Did you have a dental visit in the last 12 months?: No Did you have a dental problem in the last 6 months where you did not have access to dental care?: No Was dental information given to patient?: Patient has dentist HPI HPI Comments History of Present Illness Details This is a 73-year-old female with dyslipidemia, seronegative rheumatoid arthritis, osteopenia and elevated blood pressure without diagnosis of hypertension that comes today for follow-up on her conditions. On statins for elevated cholesterol and lipid panel was ordered. Rheumatoid arthritis is follow by Rheumatology and has been on methotrexate for about 6 months with no significant improvement. Was advised to not take folic acid the day of the methotrexate. DEXA scan done 2021 shows osteopenia and she is on calcium with vitamin-D. Blood pressure elevated with when she take it at home it runs around 120/80. No chest pain or shortness on breath. Still has diffuse joint pain and has not take prednisone in over 3 months. [facility] Medical History (Updated 01/28/24 @ 08:55 by Gina Zapien MD) Elevated blood pressure reading without diagnosis of hypertension Osteopenia Dyslipidemia IBS (irritable bowel syndrome) Surgical History Keloid History of removal of ovarian cyst Family History Father Renal failure Mother Dementia Social History Housing: House Alcohol intake: current Alcohol intake frequency: a few times a month Alcohol type: beer Patient Tobacco Use Status: Former Tobacco user Tobacco use type: Cigarette e-Cigarette/Vaping Use: Never Used Second Hand Smoke Exposure: No service: No Current occupational status: retired 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 How often do you have a drink containing alcohol?: Monthly or less 2. How many drinks containing alcohol do you have on a typical day when you are drinking?: 1 or 2 3. How often do you have six or more drinks on one occasion?: Never Total Score: 1 Score Reviewed/Action Taken: No MISHA-7 AMB Questionnaire MISHA-7 Date MISHA - 7 assessed: 07/27/23 Source: Developed by Drs. Maximino Hernandez, Flor Reddy, Mario Sherman and colleagues, with an educational tahmina from [employer]. Review of Systems Const All systems reviewed & are unremarkable except as noted in HPI and below Eyes Reports no additional complaints, Denies change in vision and Denies other visual disturbances Card Denies chest pain at rest, Denies chest pain with activity, Denies edema, Denies irregular heart rhythm, Denies claudication, Denies dyspnea, Denies dyspnea on exertion, Denies orthopnea, Denies paroxysmal nocturnal dyspnea and Denies slow heart rate Resp Denies cough, Denies dyspnea and Denies dyspnea on exertion Musc Reports arthralgias Physical exam (Primary Care) Vital Signs: Last Vital Signs BP 164/80 H 01/28/24 08:25 BMI result Body Mass Index 26.6 Tobacco/Smoking Status: Tobacco use Status Tobacco use date assessed 01/28/24 01/28/24 08:33 Patient Tobacco Use Status Former Tobacco user 01/28/24 08:33 Tobacco use type Cigarette 01/28/24 08:33 e-Cigarette/Vaping Use Never Used 01/28/24 08:33 Thrive Assessment: Date of Thrive Assessment Date Thrive assessed 07/27/23 01/28/24 08:33 Resp Effort & Inspection: normal respiratory effort Auscultation: clear to auscultation bilaterally Cardio Jugular venous distension: no JVD Rate: regular rate Rhythm: regular rhythm Heart sounds: S1 normal heart sound present and S2 normal heart sound present Extrem General: Yes full ROM Coding Level of Care Code Est Pt Level 4 (83253) Complex EM visit Add On G2211 Diagnoses Seronegative rheumatoid arthritis M06.00 Elevated blood pressure reading without diagnosis of hypertension R03.0 Dyslipidemia E78.5 Osteopenia, unspecified location M85.80 Osteopenia location: unspecified Time Spent (min) 21 Assessment & Plan Assessment & Plan (1) Seronegative rheumatoid arthritis: Comment: -ve RF -ve CCP erosive dx 07/2023 MTX 07/2023 partially effective, switched to SQ 09/2023 Code(s): M06.00 - Rheumatoid arthritis without rheumatoid factor, unspecified site Category: Medical Plan: Continue methotrexate, folic acid and sulfasalazine. Follow-up with rheumatology. (2) Elevated blood pressure reading without diagnosis of hypertension: Code(s): R03.0 - Elevated blood-pressure reading, without diagnosis of hypertension Category: Medical Plan: Recheck blood pressure with nurse navigator in 3 weeks. Continue home blood pressure monitoring. (3) Dyslipidemia: Code(s): E78.5 - Hyperlipidemia, unspecified Category: Medical Plan: Continue statins. (4) Osteopenia: Code(s): M85.80 - Other specified disorders of bone density and structure, unspecified site Category: Medical Qualifiers: Osteopenia location: unspecified Qualified Code(s): M85.80 - Other specified disorders of bone density and structure, unspecified site Plan: Continue calcium with vitamin-D.
[2024-01-28 08:25] VITALS: BP 164/80; BMI 26.6
== END 2024-01-28 08:52 | disposition home or self-care (01) ==
PROVIDERS: PCP Internal Medicine; Visit Provider Internal Medicine
DX: M06.00 Rheumatoid arthritis without rheumatoid factor, unspecified site (principal); R03.0 Elevated blood-pressure reading, without diagnosis of hypertension; E78.5 Hyperlipidemia, unspecified; M85.80 Other specified disorders of bone density and structure, unspecified site

== ENCOUNTER → 2024-01-28 08:09 | Outpatient (BNVA) | payer MEDICARE, SELFPAY | PROVIDERS: PCP Internal Medicine; Visit Provider Internal Medicine | DX: M06.00 Rheumatoid arthritis without rheumatoid factor, unspecified site (principal); R03.0 Elevated blood-pressure reading, without diagnosis of hypertension; E78.5 Hyperlipidemia, unspecified; M85.80 Other specified disorders of bone density and structure, unspecified site | CPT/HCPCS: 99212 ==

== ENCOUNTER 2024-02-03 06:27 | Outpatient (REF) | payer MEDICARE, SELFPAY ==
[2024-02-03 08:01] LABS: Alanine Aminotransferase 34 U/L (0-31); Alkaline Phosphatase 96 U/L (39-117); Anion Gap 11 (12-20); Aspartate Amino Transferase 33 U/L (5-31); Bilirubin Total 0.4 mg/dL (0.0-1.0); Blood Urea Nitrogen 6 mg/dL (9-16); Calcium 9.3 mg/dL (8.4-10.2); Carbon Dioxide 26 mmol/L (22-29); Chloride 108 mmol/L (96-108); Cholesterol 163 mg/dL (<200); Estimated Glomerular Filt Rate > 60; Glucose Fasting 91 mg/dL (60-99); HDL Cholesterol 56 mg/dL (>40); LDL Cholesterol Calculated 92 mg/dL (<100); Sodium 141 mmol/L (135-145); Total Protein 6.9 g/dL (6.5-8.0); Triglycerides 76 mg/dL (<150)
== END 2024-02-03 06:28 | disposition home or self-care (01) ==
LOC: HO.LAB 06:27
PROVIDERS: PCP Internal Medicine; Visit Provider Internal Medicine
DX: E78.5 Hyperlipidemia, unspecified (principal)
CPT/HCPCS: 36415; 80053; 80061

== ENCOUNTER → 2024-02-18 09:48 | Outpatient (BNVA) | payer MEDICARE, SELFPAY | PROVIDERS: PCP Internal Medicine ==

== ENCOUNTER 2024-03-10 08:44 | Outpatient (REF) | payer MEDICARE, SELFPAY ==
[2024-03-10 09:37] LABS: MANUAL DIFF FLAG NO
[2024-03-10 10:27] LABS: Basophils Absolute Auto 0.1 X10*3/uL (0.0-0.2); Eosinophils Absolute Auto 0.2 X10*3/uL (0.0-0.4); Eosinophils Percent Auto 2.7 % (0-4); Hematocrit 33.9 % (37.0-47.0); Hemoglobin 11.6 g/dl (12.0-16.0); Imm Gran Abs Auto 0.02 X10*3/uL (0.00-0.03); Imm Gran Pct Auto 0.3 % (0.0-0.4); Lymphocytes Absolute Auto 1.7 X10*3/uL (1.2-4.9); Lymphocytes Percent Auto 27.8 % (20-40); Mean Corpuscular HGB Conc 34.2 g/dl (31.0-35.0); Mean Corpuscular Hemoglobin 34.1 pg (27.0-33.0); Mean Corpuscular Volume 99.7 fL (80.0-98.0); Mean Platelet Volume 10.6 fL (9.4-12.3); Monocytes Absolute Auto 0.7 X10*3/uL (0.1-1.2); Monocytes Percent Auto 11.8 % (2-11); Neutrophils Absolute Auto 3.4 x10*3/uL (2.0-8.3); Neutrophils Percent Auto 56.4 % (45-73); Platelet Count 245 X10*3/uL (160-400); Red Cell Distribution Width 15.6 % (11.0-16.0); White Blood Count 5.9 X10*3/uL (4.8-10.8)
[2024-03-10 10:51] LABS: Alanine Aminotransferase 29 U/L (0-31); Albumin Level 4.1 g/dL (3.5-5.0); Alkaline Phosphatase 88 U/L (39-117); Anion Gap 11 (12-20); Aspartate Amino Transferase 35 U/L (5-31); Bilirubin Total 0.4 mg/dL (0.0-1.0); Blood Urea Nitrogen 9 mg/dL (9-16); Calcium 9.3 mg/dL (8.4-10.2); Carbon Dioxide 27 mmol/L (22-29); Chloride 105 mmol/L (96-108); Estimated Glomerular Filt Rate > 60; Glucose Random 100 mg/dL (60-115); Potassium 3.8 mmol/L (3.3-5.1); Sodium 139 mmol/L (135-145); Total Protein 7.2 g/dL (6.5-8.0)
[2024-03-10 11:13] LABS: Erythrocyte Sedimentation Rate 23 MM/HR (0-20)
== END 2024-03-10 08:45 | disposition home or self-care (01) ==
LOC: HO.LAB 08:44
PROVIDERS: Absent Provider Student in an Organized Health Care Education/Training Program; PCP Internal Medicine
DX: M06.00 Rheumatoid arthritis without rheumatoid factor, unspecified site (principal); Z79.631 Long term (current) use of antimetabolite agent
CPT/HCPCS: 36415; 80053; 85025; 85652; 86140

== ENCOUNTER 2024-03-22 07:36 | Outpatient (AMB) | payer MEDICARE, SELFPAY ==
--- NOTE | 2024-03-22 07:47 | MHC.OFFVIS ---
Vital Signs 03/22/24 07:52 Height 5 ft 7 in Weight 172 lb 9.951 oz BMI 27.0 BP 144/70 H Blood Pressure Location Rt brachial Position Sitting Pulse 100 Pulse Source Pulse Oximeter Pulse Oximetry (%) 97 Oxygen Delivery Method Room Air Intake Visit Reasons: RA Intake Note: Patient presents for RA. Allergies No Known Allergies Allergy (Verified 03/22/24 07:51) Medication List - Last Reconciled 03/22/24 by María Ramirez MD calcium carbonate 600 mg PO BID 90 days cholecalciferol (vitamin D3) (Vitamin D3) 25 mcg PO DAILY 90 days folic acid 1 mg PO DAILY insulin syringe-needle U-100 (BD Insulin Syringe Ultra-Fine) USE ONCE WEEKLY WITH METHOTREXATE methotrexate sodium (PF) 25 mg subcut QWEEK simvastatin 10 mg PO BEDTIME 90 days sulfasalazine 1 g (2 x 500 mg) PO BID HPI Comments Details: 74-year-old female with seronegative RA returns for follow-up. She is on methotrexate 25 mg subcutaneously weekly and sulfasalazine 1000 mg Twice daily. She states that sulfasalazine is such a large pale and causes some mild GI upset but is generally well tolerated. She continues to have few joint pains especially her wrists, her left shoulder keeps her up at night and left knee pain and stiffness. Initial history: This is a 73-year-old female who presents for evaluation of diffuse joint pain. The condition started back in June with right knee pain followed by left knee pain, bilateral wrist pain, bilateral shoulder pain and neck pain. Associated with swelling of her wrists and knees. States that her symptoms are worse in the morning,.She has stiffness lasting all day. Patient denies any recent history of respiratory or urinary infections. She denies any fevers or weight loss. She denies any history of DVT/PE. She is unaware of any family history of an autoimmune rheumatic disease. 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[employer] Cognitive needs: No Hearing needs: No Vision needs: No Female Reproductive History Menstrual Total pregnancies: 0 Review of Systems Musc Reports arthralgias, Reports joint swelling and Reports stiffness Physical Exam Vital Signs: Last Vital Signs Pulse 100 03/22/24 07:52 BP 144/70 H 03/22/24 07:52 Pulse Ox 97 03/22/24 07:52 Oxygen Delivery Method Room Air 03/22/24 07:52 BMI result Body Mass Index 27.0 Const General: cooperative, healthy appearing and comfortable Nutritional Appearance: overweight Orientation/consciousness: patient oriented x3 Limitations: no limitations HEENT Head: Yes normocephalic and Yes atraumatic Mouth: moist mucous membranes Resp Effort & Inspection: normal respiratory effort and able to speak in complete sentences Cardio Rate: regular rate Rhythm: regular rhythm Skin General skin exam: no rashes or lesions noted Neuro General: patient oriented x3 Extrem Other: Minimal bilateral wrist swelling, tenderness pain with any range of motion Right 1st MCP tenderness, minimal swelling Significantly reduced left shoulder abduction Right knee with no swelling warmth or pain with range of motion Minimal left knee warmth, no significant swelling , has pain with range of motion No ankle swelling or tenderness Office Procedures AMB Joint Injection/Aspiration Joint Injection/Aspiration Primary Site: left shoulder Prep: site was prepped using sterile technique and ethochloride spray was applied Injected: 40 mg of, Kenalog, with 1 mL of, 1% plain lidocaine and in the subcromial space Approach Used: posterolateral Procedure: The patient tolerated the procedure well Coding Details: With the patient's consent the left shoulder was prepped with ChloraPrep and alcohol. Under a topical ethyl chloride spray the left subacromial space was injected with 40 mg of triamcinolone and 1 cc of 1% lidocaine. The patient tolerated the procedure without any acute adverse effects. 64246 - Large joint Procedure code (CPT) selection complete Office Meds Kenalog 40 mg/mL suspension for injection Performing Provider: María Ramirez MD Performing Location: [facility] Administered by: María Ramirez MD on 03/22/24 08:27 Dose Route Admin Location Dispensed Lot Number Expiration Date [facility] [employer] 40 mg intra-articular 1 mL [id number] 10/18/25 [address]-2 [employer] lidocaine (PF) 10 mg/mL (1 %) injection solution Performing Provider: María Ramirez MD Performing Location: [facility] Administered by: María Ramirez MD on 03/22/24 08:27 Dose Route Admin Location Dispensed Lot Number Expiration Date [facility] [employer] 10 mg Infiltration Left shoulder 2 mL [id number] 07/19/26 17893-284-60 [facility] Quality Reporting (2019) Adult ([facility] 138/06/11/68) Smoking risk assessment performed?: Yes Patient Tobacco Use Status: Former Tobacco user Assessment & Plan Assessment & Plan (1) Seronegative rheumatoid arthritis: Comment: -ve RF -ve CCP erosive dx 07/2023 MTX 07/2023 partially effective, switched to SQ 09/2023 SSZ added 11/2023 Code(s): M06.00 - Rheumatoid arthritis without rheumatoid factor, unspecified site Category: Medical Plan: This is a 74-year-old female with seronegative RA who presents for follow-up. Doing much better on methotrexate 25 mg subcutaneously weekly and sulfasalazine 1000 mg Twice daily. Inflammatory markers markedly improved. She continues to have few swollen and tender joints. 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 If persistent, consider lowering methotrexate to 20 mg weekly Monitor safety labss Plan I spent 35 minutes reviewing patient's chart, evaluating patient, ordering diagnostic workup, counseling patient and documenting in the chart Orders: Orders Complete Blood Count Auto Diff 3 Months M06.00 - Rheumatoid arthritis without rheumatoid factor, unspecified site, Z79.631 - halfway (current) use of antimetabolite agent Erythrocyte Sedimentation Rate 3 Months M06.00 - Rheumatoid arthritis without rheumatoid factor, unspecified site, Z79.631 - halfway (current) use of antimetabolite agent AMB Joint Injection/Aspiration Today M06.00 - Rheumatoid arthritis without rheumatoid factor, unspecified site Comprehensive Met. Panel 3 Months M06.00 - Rheumatoid arthritis without rheumatoid factor, unspecified site, Z79.631 - halfway (current) use of antimetabolite agent C Reactive Protein 3 Months M06.00 - Rheumatoid arthritis without rheumatoid factor, unspecified site, Z79.631 - halfway (current) use of antimetabolite agent Medications: New Kenalog (triamcinolone acetonide) 40 mg intra-articular ONCE 1 mL 0RF NS M06.00 - Rheumatoid arthritis without rheumatoid factor, unspecified site lidocaine (PF) 10 mg Infiltration ONCE 2 mL 0RF M06.00 - Rheumatoid arthritis without rheumatoid factor, unspecified site Discontinued prednisone Discontinued Reason: Doctor's Order 10 mg PO DAILY PRN 15 tabs 1RF pain Coding Level of Care Code Est Pt Level 4 (72166) Complex EM visit Add On G2211 Diagnoses Seronegative rheumatoid arthritis M06.00 halfway methotrexate user Z79.631 CPT Codes Coding - 21165 Large joint: 56401 - Large joint ([id number])
[2024-03-22 07:52] VITALS: BP 144/70; PULSE 100; O2SAT 97; BMI 27.0
== END 2024-03-22 08:24 | disposition home or self-care (01) ==
PROVIDERS: PCP Internal Medicine; Visit Provider Student in an Organized Health Care Education/Training Program
DX: M06.012 Rheumatoid arthritis without rheumatoid factor, left shoulder (principal); Z79.631 Long term (current) use of antimetabolite agent
CPT/HCPCS: 20610; 99214

== ENCOUNTER → 2024-03-22 07:36 | Outpatient (BNVA) | payer MEDICARE, SELFPAY | PROVIDERS: PCP Internal Medicine; Visit Provider Student in an Organized Health Care Education/Training Program | DX: M06.00 Rheumatoid arthritis without rheumatoid factor, unspecified site (principal); M25.512 Pain in left shoulder; M25.511 Pain in right shoulder; M25.561 Pain in right knee; M25.562 Pain in left knee; M25.532 Pain in left wrist; M25.531 Pain in right wrist; M54.2 Cervicalgia; Z79.631 Long term (current) use of antimetabolite agent; Z79.899 Other long term (current) drug therapy | CPT/HCPCS: 20610; 99212; J2003; J3300 ==

== ENCOUNTER 2024-06-13 08:45 | Outpatient (REF) | payer MEDICARE, SELFPAY ==
[2024-06-13 08:57] LABS: MANUAL DIFF FLAG NO
[2024-06-13 09:21] LABS: Basophils Absolute Auto 0.1 X10*3/uL (0.0-0.2); Basophils Percent Auto 1.6 % (0-2); Eosinophils Absolute Auto 0.1 X10*3/uL (0.0-0.4); Eosinophils Percent Auto 1.6 % (0-4); Hematocrit 34.9 % (37.0-47.0); Hemoglobin 12.2 g/dl (12.0-16.0); Imm Gran Abs Auto 0.02 X10*3/uL (0.00-0.03); Imm Gran Pct Auto 0.3 % (0.0-0.4); Lymphocytes Absolute Auto 1.5 X10*3/uL (1.2-4.9); Lymphocytes Percent Auto 25.5 % (20-40); Mean Corpuscular Hemoglobin 36.5 pg (27.0-33.0); Mean Corpuscular Volume 104.5 fL (80.0-98.0); Mean Platelet Volume 10.6 fL (9.4-12.3); Monocytes Absolute Auto 0.5 X10*3/uL (0.1-1.2); Monocytes Percent Auto 8.9 % (2-11); Neutrophils Absolute Auto 3.6 x10*3/uL (2.0-8.3); Neutrophils Percent Auto 62.1 % (45-73); Platelet Count 242 X10*3/uL (160-400); Red Blood Count 3.34 X10*6/uL (4.20-5.50); Red Cell Distribution Width 14.4 % (11.0-16.0); White Blood Count 5.7 X10*3/uL (4.8-10.8)
[2024-06-13 09:56] LABS: Alanine Aminotransferase 154 U/L (0-31); Albumin Level 4.1 g/dL (3.5-5.0); Alkaline Phosphatase 91 U/L (39-117); Anion Gap 15 (12-20); Aspartate Amino Transferase 132 U/L (5-31); Bilirubin Total 0.4 mg/dL (0.0-1.0); Blood Urea Nitrogen 10 mg/dL (9-16); C Reactive Protein 0.24 mg/dL (< or = 0.50); Calcium 9.6 mg/dL (8.4-10.2); Carbon Dioxide 23 mmol/L (22-29); Chloride 109 mmol/L (96-108); Cholesterol 170 mg/dL (<200); Estimated Glomerular Filt Rate > 60; Glucose Fasting 98 mg/dL (60-99); HDL Cholesterol 69 mg/dL (>40); LDL Cholesterol Calculated 87 mg/dL (<100); Potassium 4.1 mmol/L (3.3-5.1); Sodium 143 mmol/L (135-145); Total Protein 7.6 g/dL (6.5-8.0); Triglycerides 70 mg/dL (<150)
[2024-06-13 10:15] LABS: Vitamin D 25-OH Total 38.9 ng/mL (>30)
[2024-06-13 10:22] LABS: Erythrocyte Sedimentation Rate 18 MM/HR (0-20)
== END 2024-06-13 08:46 | disposition home or self-care (01) ==
LOC: HO.LAB 08:45
PROVIDERS: Student in an Organized Health Care Education/Training Program; PCP Internal Medicine; Visit Provider Internal Medicine
DX: E55.9 Vitamin D deficiency, unspecified (principal); M06.00 Rheumatoid arthritis without rheumatoid factor, unspecified site; E78.5 Hyperlipidemia, unspecified; Z79.631 Long term (current) use of antimetabolite agent; E78.00 Pure hypercholesterolemia, unspecified
CPT/HCPCS: 36415; 80053; 80061; 82306; 85025; 85652; 86140

== ENCOUNTER 2024-06-15 08:05 | Outpatient (AMB) | payer MEDICARE, SELFPAY ==
[2024-06-15 08:09] VITALS: BP 138/68; PULSE 102; O2SAT 98; BMI 26.9
--- NOTE | 2024-06-15 08:09 | A.OFFPC_ITS ---
Vital Signs 06/15/24 08:09 Height 5 ft 7 in Weight 172 lb BMI 26.9 BP 138/68 Blood Pressure Location Lt brachial Position Sitting Pulse 102 H Pulse Source Pulse Oximeter Pulse Oximetry (%) 98 Oxygen Delivery Method Room Air Intake Visit Reasons: bp Senior Education Specialist Required: No Accompanied by: Self / Same As Patient Allergies No Known Allergies Allergy (Verified 06/15/24 08:20) Medication List - Last Reconciled 06/15/24 by Gina Zapien MD calcium carbonate 600 mg PO BID 90 days cholecalciferol (vitamin D3) (Vitamin D3) 25 mcg PO DAILY 90 days folic acid 1 mg PO DAILY insulin syringe-needle U-100 (BD Insulin Syringe Ultra-Fine) USE ONCE WEEKLY WITH METHOTREXATE methotrexate sodium (PF) 25 mg subcut QWEEK simvastatin 10 mg PO BEDTIME 90 days sulfasalazine 1.5 grams (3 x 500 mg) PO BID Tobacco use date assessed: 06/15/24 Fall risk assessment: No Falls in past year Last assessed Fall Risk: 06/15/24 Dental Screening Dental Screen Date: 06/15/24 Did you have a dental visit in the last 12 months?: Yes Did you have a dental problem in the last 6 months where you did not have access to dental care?: No Was dental information given to patient?: Patient has dentist HPI HPI Comments History of Present Illness Details The patient is a 74-year-old female presenting for a follow-up appointment to manage her chronic conditions, including rheumatoid arthritis and hyperlipidemia. Her treatment regimen includes methotrexate, simvastatin, sulfasalazine, and vitamin supplements. There was a recent increase in her sulfasalazine dosage from 2000 mg to 3000 mg daily by her mechanism assembler. Recent laboratory tests indicated elevated liver enzymes, likely related to medication effects, necessitating adjustment in her medication regimen. Her past medical history includes resolved mild anemia.Patient follows with rheumatology her rheumatoid arthritis which has an appointment next week. I hold methotrexate dose of this week. I decrease sulfasalazine to half the dose up until she sees Rheumatology. I whole statins and told her to discontinue alcohol consumption up until July which she has a wellness exam with me. Blood pressure has been stable and she has been taking it at home. Cholesterol well control. Vitamin-D levels are normal and she is on supplements for low vitamin-D. [facility] Medical History (Updated 06/15/24 @ 09:12 by Gina Zapien MD) Elevated blood pressure reading without diagnosis of hypertension Osteopenia Dyslipidemia IBS (irritable bowel syndrome) Surgical History Keloid History of removal of ovarian cyst Family History Father Renal failure Mother Dementia Social History Housing: House Alcohol intake: current Alcohol intake frequency: a few times a month Alcohol type: beer Patient Tobacco Use Status: Former Tobacco user Tobacco use type: Cigarette e-Cigarette/Vaping Use: Never Used Second Hand Smoke Exposure: No service: No Current occupational status: retired 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 1. Little interest or pleasure in doing things: not at all 2. Feeling down, depressed, or hopeless: not at all 3. Trouble falling or staying asleep, or sleeping too much: not at all 4. Feeling tired or having little energy: not at all 5. Poor appetite or overeating: not at all 6. Feeling bad about yourself - or that you are a failure or have let yourself or your family down: not at all 7. Trouble concentrating on things, such as reading the newspaper or watching television: not at all 8. Moving or speaking so slowly that other people could have noticed. Or the opposite - being so fidgety or restless that you have been moving around a lot more than usual: not at all 9. Thoughts that you would be better off or of hurting yourself in some way: not at all Total score: 0 Depression Screening Interpretation: Negative Depression Screening Done: Yes 34777 - PHQ-9 Billing: Yes Source: Developed by Drs. Maximino Hernandez, Flor Reddy, Mario Sherman and colleagues, with an educational tahmina from [employer]. Thrive Questionnaire Date Thrive assessed: 06/15/24 I am a: Patient What is your living situation today?: I have a steady place to live Within the past 12 months, did the food you bought not last and you didn't have the money to get more?: Never true Within the past 12 months, did you worry whether your food would run out before you got money to buy more?: Never true Do you have trouble paying for medicines?: No Do you have trouble getting transportation to medical appointments?: No Do you have trouble paying your heating and electricity bill?: No Do you have trouble taking care of your child, family member or friend?: No Do you have trouble with day-to-day activities such as bathing, preparing meals, shopping, managing finances, etc.?: No Are you currently unemployed and looking for a job?: No Are you interested in more education?: No Currently or been in a relationship where the following occur: No concerns reported THRIVE Score: 0 AUDIT C Alcohol Use Questionnaire (AUDIT-C) 1. How often do you have a drink containing alcohol?: Monthly or less 2. How many drinks containing alcohol do you have on a typical day when you are drinking?: 1 or 2 3. How often do you have six or more drinks on one occasion?: Never Total Score: 1 Score Reviewed/Action Taken: No MISHA-7 AMB Questionnaire MISHA-7 Date MISHA - 7 assessed: 06/15/24 Feeling nervous, anxious, or on edge: 0 = Not at all Not being able to stop or control worryin = Not at all Worrying too much about different things: 0 = Not at all Trouble relaxin = Not at all Being so restless that it is hard to sit still: 0 = Not at all Becoming easily annoyed or irritable: 0 = Not at all Feeling afraid as if something awful might happen: 0 = Not at all Total MISHA-7 score (0-4 normal; 5-9 mild; 10-14 moderate; 15-21 severe): 0 Source: Developed by Drs. Maximino Hernandez, Flor Reddy, Mario Sherman and colleagues, with an educational tahmina from [employer]. MISHA-7 Assessment Billing MISHA-7 Assessment Tool: MISHA-7 Assessment 13434 Review of Systems Const All systems reviewed & are unremarkable except as noted in HPI and below Card Denies chest pain at rest, Denies chest pain with activity, Denies edema, Denies irregular heart rhythm, Denies claudication, Denies dyspnea, Denies dyspnea on exertion, Denies orthopnea, Denies paroxysmal nocturnal dyspnea and Denies slow heart rate Resp Denies cough, Denies dyspnea and Denies dyspnea on exertion GI Denies abdominal pain, Denies change in bowel habits, Denies excessive flatus, Denies nausea and Denies vomiting Denies urinary incontinence, Denies urinary hesitancy and Denies urinary urgency Musc Reports arthralgias Physical exam (Primary Care) Vital Signs: Last Vital Signs Pulse 102 H 06/15/24 08:09 BP 138/68 06/15/24 08:09 Pulse Ox 98 06/15/24 08:09 Oxygen Delivery Method Room Air 06/15/24 08:09 BMI result Body Mass Index 26.9 Tobacco/Smoking Status: Tobacco use Status Tobacco use date assessed 06/15/24 06/15/24 08:11 Patient Tobacco Use Status Former Tobacco user 06/15/24 08:11 Tobacco use type Cigarette 06/15/24 08:11 e-Cigarette/Vaping Use Never Used 06/15/24 08:11 PHQ-9: PHQ-9 Score PHQ-9: Total score 0 06/15/24 08:11 Depression Screening Interpretation: Negative Thrive Assessment: Date of Thrive Assessment Date Thrive assessed 06/15/24 06/15/24 08:11 Currently or been in a relationship where the following occur: No concerns reported Resp Effort & Inspection: normal respiratory effort Auscultation: clear to auscultation bilaterally Cardio Jugular venous distension: no JVD Rate: regular rate Rhythm: regular rhythm Heart sounds: S1 normal heart sound present and S2 normal heart sound present Extrem General: Yes full ROM Coding Level of Care Code Est Pt Level 4 (66644) Complex EM visit Add On G2211 Diagnoses Seronegative rheumatoid arthritis M06.00 Transaminitis R74.01 Dyslipidemia E78.5 Hypovitaminosis D E55.9 Additional Codes MISHA-7 Assessment Billing - MISHA-7 Assessment Tool: MISHA-7 Assessment 75051 ([id number]) PHQ-9 - 99141 - PHQ-9 Billing: Yes ([id number]) Time Spent (min) 24 Assessment & Plan Assessment & Plan (1) Seronegative rheumatoid arthritis: Comment: -ve RF -ve CCP erosive dx 07/2023 MTX 07/2023 partially effective, switched to SQ 09/2023 SSZ added 11/2023 Code(s): M06.00 - Rheumatoid arthritis without rheumatoid factor, unspecified site Category: Medical (2) Transaminitis: Code(s): R74.01 - Elevation of levels of liver transaminase levels Category: Medical (3) Dyslipidemia: Code(s): E78.5 - Hyperlipidemia, unspecified Category: Medical (4) Hypovitaminosis D: Code(s): E55.9 - Vitamin D deficiency, unspecified Category: Medical Plan To address the elevated liver enzymes, I propose withholding methotrexate and simvastatin, along with advising against alcohol consumption. The sulfasalazine dosage will be decreased to once daily pending further consultation with the patient?s mechanism assembler. I will organize a liver ultrasound and a hepatitis panel to investigate hepatic function more thoroughly. We will assess medication efficacy and safety upon her upcoming appointment. Dietary adjustments focusing on cholesterol reduction are advisable. Follow-up in July will include a review of the hepatic panel, ultrasound results, and dietary impacts. Patient was informed and verbally consented to the use of an ambient scribe for clinic note documentation during this visit. I discussed with the patient the significance of her elevated liver enzymes and the likelihood of medication-induced liver inflammation, particularly methotrexate and sulfasalazine. The patient agreed to hold methotrexate and simvastatin and to avoid alcohol consumption. I informed her of the plan to perform a liver ultrasound and hepatitis panel to exclude other causes of liver dysfunction. We agreed that her medication adjustments and any further intervention would be guided by the upcoming consultation with her mechanism assembler. I emphasized the importance of monitoring her condition closely and maintaining a cholesterol-conscious diet until the next consult, and she expressed understanding and compliance. Orders: Orders Vitamin D 25-OH Total Today E55.9 - Vitamin D deficiency, unspecified Comprehensive [place]. Panel Fast Today R74.01 - Elevation of levels of liver transaminase levels Lipid Panel 2 Months E78.5 - Hyperlipidemia, unspecified Hepatitis A,B,C Profile Today R74.01 - Elevation of levels of liver transaminase levels US abdomen comp w elastography Today R74.01 - Elevation of levels of liver transaminase levels Patient Instructions: - Hold methotrexate and simvastatin until further review. - Do not consume alcohol until liver function is re-evaluated. - Decrease sulfasalazine to once daily until your rheumatology appointment. - Follow a low-cholesterol diet in the meantime. - Attend the upcoming appointment with your mechanism assembler for further evaluation. - Expect a liver ultrasound and hepatitis panel as a precaution. - Keep follow-up appointment in July to reassess medication management and liver function.
== END 2024-06-15 08:36 | disposition home or self-care (01) ==
PROVIDERS: PCP Internal Medicine; Visit Provider Internal Medicine
DX: M06.00 Rheumatoid arthritis without rheumatoid factor, unspecified site (principal); R74.01 Elevation of levels of liver transaminase levels; E78.5 Hyperlipidemia, unspecified; E55.9 Vitamin D deficiency, unspecified

== ENCOUNTER → 2024-06-15 08:05 | Outpatient (BNVA) | payer MEDICARE, SELFPAY | PROVIDERS: PCP Internal Medicine; Visit Provider Internal Medicine | DX: M06.00 Rheumatoid arthritis without rheumatoid factor, unspecified site (principal); R74.01 Elevation of levels of liver transaminase levels; E78.5 Hyperlipidemia, unspecified; E55.9 Vitamin D deficiency, unspecified | CPT/HCPCS: 96127; 99212 ==

== ENCOUNTER 2024-06-21 07:58 | Outpatient (AMB) | payer MEDICARE, SELFPAY ==
--- NOTE | 2024-06-21 08:05 | MHC.OFFVIS ---
Vital Signs 06/21/24 08:10 Height 5 ft Weight 173 lb 1.006 oz BMI 33.8 BP 182/94 H Blood Pressure Location Lt brachial Position Sitting Pulse 93 Pulse Source Pulse Oximeter Pulse Oximetry (%) 98 Oxygen Delivery Method Room Air Intake Visit Reasons: RA Intake Note: Patient presents for RA. Allergies No Known Allergies Allergy (Verified 06/21/24 08:08) Medication List - Last Reconciled 06/21/24 by Reta Mejia MD calcium carbonate 600 mg PO BID 90 days cholecalciferol (vitamin D3) (Vitamin D3) 25 mcg PO DAILY 90 days folic acid 1 mg PO DAILY insulin syringe-needle U-100 (BD Insulin Syringe Ultra-Fine) USE ONCE WEEKLY WITH METHOTREXATE methotrexate sodium (PF) 25 mg subcut QWEEK sulfasalazine 1.5 grams (3 x 500 mg) PO BID HPI Comments Details: Patient is a 74-year-old female with hyperlipidemia, IBS, osteopenia, polyarticular osteoarthritis and seronegative rheumatoid arthritis here today for follow up Interval History: Patient last seen 03/22/[address] Ramirez. At that time she was on subcutaneous methotrexate and sulfasalazine. She continued to have a few joint pain especially involving her wrists, left shoulder and left knee. She received an injection in her left shoulder for subacromial bursitis. She also had a few tender and swollen joints and so her sulfasalazine was increased Today, Patient increased her sulfasalazine but has not noticed any significant improvement in her joint symptoms She continues to have joint pain involving her knees, hips, back, shoulders (especially the left shoulder), 1st CMC joint bilaterally and wrists. Shoulder injection had transient relief but this was not sustained. Rheumatologic History: Seronegative rheumatoid arthritis -ve RF -ve CCP erosive dx 07/2023 MTX 07/2023 partially effective, switched to SQ 09/2023 SSZ added 11/2023 Attempts to to add biologic have been met with high co-pay from insurance. They have tried Enbrel, Humira and other medications. Patient is not willing to do monthly infusions. Initial history: This is a 73-year-old female who presents for evaluation of diffuse joint pain. The condition started back in June with right knee pain followed by left knee pain, bilateral wrist pain, bilateral shoulder pain and neck pain. Associated with swelling of her wrists and knees. States that her symptoms are worse in the morning,.She has stiffness lasting all day. Patient denies any recent history of respiratory or urinary infections. She denies any fevers or weight loss. She denies any history of DVT/PE. She is unaware of any family history of an autoimmune rheumatic disease. Current Rheumatology Medication(s): Methotrexate 25 mg subcutaneous weekly Folic acid 1 mg daily Sulfasalazine 1500 mg twice a day [facility] Medical History Elevated blood pressure reading without diagnosis of hypertension Osteopenia Dyslipidemia IBS (irritable bowel syndrome) Surgical History Keloid History of removal of ovarian cyst Family History Father Renal failure Mother Dementia Social History Housing: House Alcohol intake: current Alcohol intake frequency: a few times a month Alcohol type: beer Patient Tobacco Use Status: Former Tobacco user Tobacco use type: Cigarette e-Cigarette/Vaping Use: Never Used Second Hand Smoke Exposure: No service: No Current occupational status: retired 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 [employer] Cognitive needs: No Hearing needs: No Vision needs: Yes Review of Systems Const Details: Review of Systems Constitutional: Denies fever, chills, weight loss ENT: Denies vision changes, eye pain or eye redness, dental caries, dry mouth GI: Denies nausea, vomiting, diarrhea, abdominal pain, change in BM Pulm: Denies SOB, FLOOD, hemoptysis, wheezing Cards: Denies chest pain, palpitations Skin: Denies Raynaud's, rash, nail changes, photosensitivity, DBA DEVELOPER: Denies headaches, weakness, paresthesias, recurrent falls MSK: as per HPI All other systems reviewed and are unremarkable except noted above Physical Exam Vital Signs: Last Vital Signs Pulse 93 06/21/24 08:10 BP 182/94 H 06/21/24 08:10 Pulse Ox 98 06/21/24 08:10 Oxygen Delivery Method Room Air 06/21/24 08:10 BMI result Body Mass Index 33.8 Vital signs reviewed Physical Examination CONSTITUITIONAL Patient alert and cooperative. Well appearing and in no apparent painful distress HEENT Conjunctiva and sclera clear. ?Pupils equal round and reactive to light. ?No lymphadenopathy. ? CHEST/RESPIRATORY SYSTEM Normal respiratory effort and able to speak in complete sentences. ?Clear to auscultation bilaterally. ?No crackles, rales, rhonchi, wheezes heard. CARDIAC SYSTEM Regular rate and rhythm. ?S1 and S2 heard no murmurs. ?Radial pulses intact bilaterally MSK Hands: ?Good vp of product strength bilaterally. No deformities noted. ?No synovitis noted to the MCPs, PIPs or DIPs. Tenderness to palpation of bilateral 1st CMC joints. Wrists: ?Full range of motion at the wrists without pain. ?Mild tenderness to palpation of bilateral wrists. Elbows: Full range of motion without pain. No tenderness, weakness, swelling, increased warmth or erythema. Shoulders: Full range of motion without pain. Tenderness to palpation of the left AC joint and left posterior shoulder. Right shoulder without any issues. Hips: Full range of motion. Mild pain on external rotation of the bilateral hips. Hip bursa: No tenderness to palpation Knees: ?Full range of motion. ?No tenderness, swelling, increased warmth or erythema.? Crepitations felt bilaterally. Ankles: Full range of motion. ?No tenderness, swelling, increased warmth or erythema.? Feet: ?Negative squeeze test. ?No tenderness to palpation or swelling of the MTPs. Tender points:?No tenderness to palpation of the bilateral trapezius, supraspinatus, greater trochanters, anterior costochondral junctions, bilateral gluteal areas, bilateral suboccipital muscle insertions SKIN Skin intact without rashes. Quality Reporting (2019) Adult ([facility] ) Smoking risk assessment performed?: Yes Patient Tobacco Use Status: Former Tobacco user Results Reviewed Results Reviewed: Laboratory Tests 03/10/24 06/13/24 09:36 08:56 WBC 5.7 RBC 3.34 L Hgb 12.2 Hct 34.9 L Plt Count 242 ESR 18 Sodium 143 Potassium 4.1 Chloride 109 H Carbon Dioxide 23 BUN 10 Creatinine 0.83 AST 35 H 132 H ALT 29 154 H C-Reactive Protein 0.24 Laboratory Tests 07/29/23 16:06 Hepatitis A IgM Ab Nonreactive Hep Bs Antigen Negative Hep Bs Antibody NONREACTIVE Hep B Core Total Ab Nonreactive Hepatitis C Ab (EIA) Nonreactive TB Test (T-Spot) Com Negative Assessment & Plan Assessment & Plan (1) Seronegative rheumatoid arthritis: Comment: -ve RF -ve CCP erosive dx 07/2023 MTX 07/2023 partially effective, switched to SQ 09/2023 SSZ added 11/2023 Code(s): M06.00 - Rheumatoid arthritis without rheumatoid factor, unspecified site Category: Medical Plan: #Seronegative RA Patient is a 74-year-old female with seronegative rheumatoid arthritis. Given her significant transaminitis we will decrease her methotrexate from 25 mg weekly to 15 mg weekly and recheck her LFTs in 2 weeks. Agree with proceeding with ultrasound of the abdomen with elastography. At this time I do not think that her rheumatoid arthritis is very active. She is likely in low disease activity. Ideally we would like her in full remission but that may not be able to be fully achieved due to her concomitant osteoarthritis. Plan - Decrease Mtx to 15mg SC every week - Folic acid 1 mg every day - SSZ 1500mg bid - CMP in 2 weeks - RTC 3 months - Lbs before visit: CBC, CMP, ESR, CRP, hepatitis panel, T spot (2) Transaminitis: Code(s): R74.01 - Elevation of levels of liver transaminase levels Category: Medical Plan: #Transaminitis Patient would transaminitis in the setting of methotrexate and sulfasalazine use. We will decrease the methotrexate. Agree with ultrasound abdomen with electromyography. 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 Limit alcohol and avoid Bactrim ? Monitoring: ?CBC, BMP, LFTs every 3-4 months and hepatitis serologies as needed (4) Encounter for monitoring sulfasalazine therapy: Code(s): Z51.81 - Encounter for therapeutic drug level monitoring; Z79.899 - Other buttermilk drier operator (current) drug therapy Plan: #Long-term Use of Sulphasalazine Discussed with patient the risks and benefits of sulfasalazine in the management of the rheumatic condition Benefits include: - Reduced pain, reduce mortality, maintenance of remission then reduction of flares Risks include: - GI upset, hemolysis (especially if G6PD deficiency), eosinophilia, headache, dizziness, rash, elevated LFTs Plan I spent 30 minutes reviewing the record and labs, taking a history, examining the patient, discussing the treatment plan and documenting in the medical record Orders: Orders Comprehensive Met. Panel 3 Months M06.00 - Rheumatoid arthritis without rheumatoid factor, unspecified site, Z79.631 - group home (current) use of antimetabolite agent Erythrocyte Sedimentation Rate 3 Months M06.00 - Rheumatoid arthritis without rheumatoid factor, unspecified site, Z79.631 - group home (current) use of antimetabolite agent Comprehensive Met. Panel 2 Weeks R74.01 - Elevation of levels of liver transaminase levels, Z51.81 - Encounter for therapeutic drug level monitoring, Z79.631 - predatory animal exterminator (current) use of antimetabolite agent, Z79.899 - Other correction (current) drug therapy Complete Blood Count Auto Diff 3 Months M06.00 - Rheumatoid arthritis without rheumatoid factor, unspecified site, Z79.631 - predatory animal exterminator (current) use of antimetabolite agent C Reactive Protein 3 Months M06.00 - Rheumatoid arthritis without rheumatoid factor, unspecified site, Z79.631 - predatory animal exterminator (current) use of antimetabolite agent Hepatitis A,B,C Profile 3 Months M06.00 - Rheumatoid arthritis without rheumatoid factor, unspecified site, Z79.631 - predatory animal exterminator (current) use of antimetabolite agent T Spot TB 3 Months M06.00 - Rheumatoid arthritis without rheumatoid factor, unspecified site, Z79.631 - group home (current) use of antimetabolite agent Medications: Changed From methotrexate sodium (PF) draw 1 mL (25 mg) & discard the rest 25 mg subcut QWEEK 20 mL 2RF M06.00 - Rheumatoid arthritis without rheumatoid factor, unspecified site To methotrexate sodium (PF) draw 1 mL (25 mg) & discard the rest 15 mg (0.6 mL) subcut QWEEK 90 days 13 mL 1RF M06.00 - Rheumatoid arthritis without rheumatoid factor, unspecified site Refilled folic acid 1 mg PO DAILY 90 tabs 1RF sulfasalazine 1.5 grams (3 x 500 mg) PO BID 360 tabs 1RF M06.00 - Rheumatoid arthritis without rheumatoid factor, unspecified site Coding Level of Care Code Est Pt Level 4 (44555) Complex EM visit Add On G2211 Diagnoses Seronegative rheumatoid arthritis M06.00 Transaminitis R74.01 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
[2024-06-21 08:10] VITALS: BP 182/94; PULSE 93; O2SAT 98; BMI 33.8
== END 2024-06-21 08:49 | disposition home or self-care (01) ==
PROVIDERS: PCP Internal Medicine; Visit Provider Student in an Organized Health Care Education/Training Program
DX: M06.00 Rheumatoid arthritis without rheumatoid factor, unspecified site (principal); R74.01 Elevation of levels of liver transaminase levels; Z79.631 Long term (current) use of antimetabolite agent; Z51.81 Encounter for therapeutic drug level monitoring; Z79.899 Other long term (current) drug therapy
CPT/HCPCS: 99214; G2211

== ENCOUNTER → 2024-06-21 07:58 | Outpatient (BNVA) | payer MEDICARE, SELFPAY | PROVIDERS: PCP Internal Medicine; Visit Provider Student in an Organized Health Care Education/Training Program | DX: M06.00 Rheumatoid arthritis without rheumatoid factor, unspecified site (principal); R74.01 Elevation of levels of liver transaminase levels; Z79.631 Long term (current) use of antimetabolite agent; Z51.81 Encounter for therapeutic drug level monitoring; Z79.899 Other long term (current) drug therapy | CPT/HCPCS: 99212 ==

== ENCOUNTER 2024-07-05 08:35 | Outpatient (REF) | payer MEDICARE, SELFPAY ==
[2024-07-05 09:56] LABS: Alanine Aminotransferase 53 U/L (0-31); Albumin Level 4.1 g/dL (3.5-5.0); Alkaline Phosphatase 96 U/L (39-117); Anion Gap 13 (12-20); Aspartate Amino Transferase 50 U/L (5-31); Bilirubin Total 0.5 mg/dL (0.0-1.0); Blood Urea Nitrogen 11 mg/dL (9-16); Calcium 9.3 mg/dL (8.4-10.2); Carbon Dioxide 26 mmol/L (22-29); Chloride 108 mmol/L (96-108); Estimated Glomerular Filt Rate > 60; Glucose Fasting 100 mg/dL (60-99); Potassium 4.5 mmol/L (3.3-5.1); Sodium 142 mmol/L (135-145); Total Protein 7.6 g/dL (6.5-8.0)
[2024-07-05 10:20] LABS: Vitamin D 25-OH Total 39.1 ng/mL (>30)
[2024-07-05 10:27] LABS: HBS Num1 0.68 mIU/mL (0-7.99); HBc Num1 0.15 S/CO (0.00-0.79); HBsAGNum1 0.25 S/CO (0.00-0.99); Hepatitis A Antibody IgM 0.16 Index (0-0.79); Hepatitis B Core Antibody Nonreactive (Nonreactive); Hepatitis B Surface Antigen Negative (Negative); ~HepC Num1 0.16 S/CO (0.00-0.79); ~Hepatitis A Antibody IgM Nonreactive (Nonreactive); ~Hepatitis B Surface Antibody NONREACTIVE (Nonreactive); ~Hepatitis C Antibody Nonreactive (Nonreactive)
== END 2024-07-05 08:36 | disposition home or self-care (01) ==
LOC: HO.LAB 08:35
PROVIDERS: PCP Internal Medicine; Visit Provider Student in an Organized Health Care Education/Training Program
DX: R74.01 Elevation of levels of liver transaminase levels (principal); E55.9 Vitamin D deficiency, unspecified; Z51.81 Encounter for therapeutic drug level monitoring; Z79.631 Long term (current) use of antimetabolite agent
CPT/HCPCS: 36415; 80053; 82306; 86704; 86706; 86709; 86803; 87340

== ENCOUNTER 2024-07-14 09:23 | Outpatient (REF) | payer MEDICARE, SELFPAY ==
--- NOTE | ~2024-07-14 | MM_ITS ---
EXAMINATION: DXA BONE DENSITY AXIAL HISTORY: Estrogen deficiency TECHNIQUE: wavecatch Dual energy absorptiometry (DEXA) of the lumbar spine, total left hip, and femoral neck was performed. COMPARISON: Comparison is made with the prior examination dated 04/25/2021. FINDINGS: The bone mineral density of the lumbar spine is 1.061 with a T-score of -0.9, and a Z-score of 0.5. This is indicative of normal bone mineral density. This represents a BMD change of -3.1% compared to the prior exam. This is statistically significant. The bone mineral density of the left total hip is 0.772 with a T-score of -1.9, and a Z-score of -0.4. This is indicative of osteopenia. This represents a BMD change of -3.0% compared to the prior exam. This is not statistically significant. The bone mineral density of the left femoral neck is 0.777 with a T-score of -1.9, and a Z-score of -0.2. This is indicative of osteopenia. This represents a BMD change of -3.6% compared to the prior exam. FRACTURE RISK: The FRAX index suggests a ten year probability of major osteoporotic fracture of 16.7%, and of hip fracture 4.5%. MM/XR DEXA axial skeleton IMPRESSION: Based on bone mineral density, and according to World Health Organization (WHO) criteria, the diagnosis is consistent with osteopenia. All bone density values are in grams per centimeter squared (g/cm2). Statistically, 68% of repeat scans fall within 1 SD (+/- 0.010 g/cm2 for AP spine L1-L4) and 1 SD (+/- 0.012 g/cm2 for femur total) FRAX is a trademark of the [employer], a World Health Organization (WHO) Collaborating Center. Electronically signed by: Maximino Lerma MD 07/14/2024 10:40 AM EDT
== END 2024-07-14 09:24 | disposition home or self-care (01) ==
LOC: HO.MAMMO 09:23
PROVIDERS: PCP Internal Medicine; Visit Provider Internal Medicine
DX: Z12.31 Encounter for screening mammogram for malignant neoplasm of breast (principal); Z13.820 Encounter for screening for osteoporosis; Z78.0 Asymptomatic menopausal state
CPT/HCPCS: 77063; 77067; 77080

== ENCOUNTER → 2024-07-14 10:00 | Outpatient (BNV) | payer MEDICARE, SELFPAY | PROVIDERS: PCP Internal Medicine; Visit Provider Radiology Diagnostic Radiology | DX: E28.39 Other primary ovarian failure (principal) | CPT/HCPCS: 77080 ==

== ENCOUNTER 2024-07-21 08:39 | Outpatient (REF) | payer MEDICARE, SELFPAY ==
--- NOTE | ~2024-07-21 | US_ITS ---
EXAMINATION: US ABDOMEN COMPLETE WITH LIVER ELASTOGRAPHY HISTORY: R74.01 - Elevation of levels of liver transaminase levels TECHNIQUE: Real-time grayscale ultrasound imaging of the abdomen was performed and images were reviewed. COMPARISON: Comparison is made with the prior examination dated 02/07/2020. FINDINGS: Liver: The right lobe of the liver measures 14.1 cm in size. The left lobe of the liver measures 7.6 cm in size. The liver demonstrates normal homogeneous echotexture. No focal mass or intrahepatic biliary ductal dilatation is identified. There is normal hepatopedal flow in the portal vein. Ultrasound elastography of the liver was performed with 10 separate measurements of the liver parenchyma with the patient in the supine position. Measurements were obtained approximately 2 cm below Lora's capsule and perpendicular to the capsule. Images are of satisfactory quality. The median shear wave velocity is 1.52 m/s. The interquartile range/median (IQR/median) is 0.19. Gallbladder and biliary tree: The gallbladder is unremarkable, without evidence of calculi, wall thickening, or pericholecystic fluid. There is no sonographic Cobos sign. The common bile duct is normal in caliber measuring 2 mm. Kidneys: The right kidney measures 8.5 cm in length. The left kidney measures 9.3 cm in length. The kidneys are unremarkable, without evidence of masses, hydronephrosis, or calculi. Pancreas: The pancreatic head, neck, and body are unremarkable. The pancreatic tail is obscured by bowel gas. Spleen: The spleen is normal in size and contour, measuring 6.0 cm in length. Abdominal aorta and inferior vena cava: The visualized portions of the abdominal aorta and inferior vena cava are normal in caliber. There is no free fluid in the abdomen. US/US abdomen comp w elastography IMPRESSION: Unremarkable abdominal ultrasound. The median shear wave velocity in the liver is 1.52 m/s, corresponding to a median liver stiffness of 6.96 kPa. The IQR/median value is 0.19. This is indicative of a poor quality data set, and the estimated liver stiffness may be unreliable. Findings are indicative of a low elastography value which rules out advanced chronic liver disease in asymptomatic patients. REFERENCE: Society of Radiologists in Ultrasound Liver Stiffness Thresholds (2020): LIVER STIFFNESS THRESHOLDS: *Shear wave velocity less than 1.3 m/s (Liver Stiffness equal or less than 5 kPa): High probability of being normal. *Shear wave velocity less than 1.7 m/s (Liver Stiffness less than 9 kPa): In the absence of other known clinical signs, rules out compensated advanced chronic liver disease. *Shear wave velocity between 1.7-2.1 m/s (Liver Stiffness 9-13 kPa): Suggestive of compensated advanced chronic liver disease but need further test for confirmation. *Shear wave velocity between 2.1-2.4 m/s (Liver Stiffness 13-17 kPa): Rules in compensated advanced chronic liver disease. *Shear wave velocity greater than 2.4 m/s (Liver Stiffness over 17 kPa): Suggestive of clinically significant portal hypertension. QUALITY OF DATA SET: *IQR/Median value equal or less than 0.15 implies a quality data set. *IQR/Median value over 0.15 implies a poor quality data set. SIGNIFICANT CHANGE FROM PRIOR EXAM: Significant change if liver stiffness measurement is 10% or greater from prior exam. OTHER CONSIDERATIONS: The stage of liver fibrosis may be overestimated in the setting of acute hepatitis, liver inflammation, elevated liver function tests, hepatic vascular congestion, obstructive cholestasis, non-fasting state, and infiltrative diseases such as amyloidosis and lymphoma. In some patients with NAFLD, the liver stiffness thresholds for compensated advanced chronic liver disease may be lower. In causes other than viral hepatitis and NAFLD, liver stiffness thresholds are not well established. Electronically signed by: Maximino Lerma MD 07/21/2024 09:49 AM EDT
== END 2024-07-21 08:40 | disposition home or self-care (01) ==
LOC: HO.US 08:39
PROVIDERS: PCP Internal Medicine; Visit Provider Internal Medicine
DX: R74.01 Elevation of levels of liver transaminase levels (principal)
CPT/HCPCS: 76700; 76981

== ENCOUNTER → 2024-07-21 08:41 | Outpatient (BNV) | payer MEDICARE, SELFPAY | PROVIDERS: PCP Internal Medicine; Visit Provider Radiology Diagnostic Radiology | DX: R74.01 Elevation of levels of liver transaminase levels (principal) | CPT/HCPCS: 76700; 76981 ==

== ENCOUNTER 2024-07-27 14:55 | Outpatient (AMB) | payer MEDICARE, SELFPAY ==
[2024-07-27 15:03] VITALS: BP 170/84; PULSE 97; TEMP 36.2; O2SAT 97; BMI 27.0
--- NOTE | 2024-07-27 15:03 | A.OFFPC_ITS ---
Vital Signs 07/27/24 15:03 Height 5 ft 7 in Weight 172 lb 8 oz BMI 27.0 BP 170/84 H Blood Pressure Location Lt brachial Position Sitting Pulse 97 Pulse Source Pulse Oximeter Temp 97.1 F Temp Source Temporal Artery Scan Pulse Oximetry (%) 97 Oxygen Delivery Method Room Air Intake Visit Reasons: [place] R eye/08/05/24 & left 08/19 Intake Note: Patient presents for a pre-operative evaluation for cataract surgery, scheduled with Dr. Robert/Von on 08/05 for the right eye and 08/19 for the left eye. Social Work Supervisor Required: No Accompanied by: Self / Same As Patient Allergies No Known Allergies Allergy (Verified 07/27/24 15:12) Medication List - Last Reconciled 07/27/24 by Gina Zapien MD calcium carbonate 600 mg PO BID 90 days cholecalciferol (vitamin D3) (Vitamin D3) 25 mcg PO DAILY 90 days folic acid 1 mg PO DAILY insulin syringe-needle U-100 (BD Insulin Syringe Ultra-Fine) USE ONCE WEEKLY WITH METHOTREXATE methotrexate sodium (PF) 15 mg (0.6 mL) subcut QWEEK 90 days simvastatin 10 mg PO BEDTIME 90 days sulfasalazine 1.5 grams (3 x 500 mg) PO BID Tobacco use date assessed: 06/15/24 Dental Screening Dental Screen Date: 06/15/24 HPI HPI Comments History of Present Illness Details The patient is a 74-year-old female presenting for the preoperative evaluation of cataract extraction surgery on both eyes. The cataract surgery on her right eye is scheduled for August 05 and on her left eye for August 19. The cataract procedure is generally considered low-risk; however, there is concern about her elevated blood pressure due to white coat hypertension. Despite normal readings at home, her blood pressure was significantly elevated during today's visit, causing anxiety. EKG pending for medical clearance. 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 The patient also presents with a history of elevated liver enzymes, which improved after discontinuing simvastatin one month ago. This enzyme elevation is concerning due to her ongoing medications, such as methotrexate and sulfasalazine. For previous medical procedures, she underwent a Keloid surgery and removal of an ovarian cyst in 1973. Social stress is compounded by recent family member loss, affecting her emotional state. Her lifestyle includes occasional alcohol consumption, which is currently discouraged due to liver concerns. [facility] Medical History (Updated 07/27/24 @ 15:30 by Gina Zapien MD) Elevated blood pressure reading without diagnosis of hypertension Osteopenia Dyslipidemia IBS (irritable bowel syndrome) Surgical History Keloid History of removal of ovarian cyst Family History Father Renal failure Mother Dementia Social History Housing: House Alcohol intake: current Alcohol intake frequency: a few times a month Alcohol type: beer Patient Tobacco Use Status: Former Tobacco user Tobacco use type: Cigarette e-Cigarette/Vaping Use: Never Used Second Hand Smoke Exposure: No service: No Current occupational status: retired 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 Maximino Hernandez, Flor Reddy, Mario Sherman and colleagues, with an educational tahmina from [employer]. Review of Systems Const All systems reviewed & are unremarkable except as noted in HPI and below Card Denies chest pain at rest, Denies chest pain with activity, Denies edema, Denies irregular heart rhythm, Denies claudication, Denies dyspnea, Denies dyspnea on exertion, Denies orthopnea, Denies paroxysmal nocturnal dyspnea and Denies slow heart rate Resp Denies cough, Denies dyspnea and Denies dyspnea on exertion GI Denies abdominal pain, Denies change in bowel habits, Denies excessive flatus, Denies nausea and Denies vomiting Physical exam (Primary Care) Vital Signs: Last Vital Signs Temp 97.1 F 07/27/24 15:03 Pulse 97 07/27/24 15:03 BP 170/84 H 07/27/24 15:03 Pulse Ox 97 07/27/24 15:03 Oxygen Delivery Method Room Air 07/27/24 15:03 BMI result Body Mass Index 27.0 Tobacco/Smoking Status: Tobacco use Status Tobacco use date assessed 06/15/24 07/27/24 15:03 Patient Tobacco Use Status Former Tobacco user 07/27/24 15:03 Tobacco use type Cigarette 07/27/24 15:03 e-Cigarette/Vaping Use Never Used 07/27/24 15:03 Thrive Assessment: Date of Thrive Assessment Date Thrive assessed 06/15/24 07/27/24 15:03 Resp Effort & Inspection: normal respiratory effort Auscultation: clear to auscultation bilaterally Cardio Jugular venous distension: no JVD Rate: regular rate Rhythm: regular rhythm Heart sounds: S1 normal heart sound present and S2 normal heart sound present Extrem General: Yes full ROM Coding Level of Care Code Est Pt Level 4 (82266) Complex EM visit Add On G2211 Diagnoses Pre-op evaluation Z01.818 Seronegative rheumatoid arthritis M06.00 Hypovitaminosis D E55.9 Dyslipidemia E78.5 Osteopenia, unspecified location M85.80 Osteopenia location: unspecified Transaminitis R74.01 Time Spent (min) 24 Assessment & Plan Assessment & Plan (1) Pre-op evaluation: Code(s): Z01.818 - Encounter for other preprocedural examination Category: Medical (2) Seronegative rheumatoid arthritis: Comment: -ve RF -ve CCP erosive dx 07/2023 MTX 07/2023 partially effective, switched to SQ 09/2023 SSZ added 11/2023 Code(s): M06.00 - Rheumatoid arthritis without rheumatoid factor, unspecified site Category: Medical (3) Hypovitaminosis D: Code(s): E55.9 - Vitamin D deficiency, unspecified Category: Medical (4) Dyslipidemia: Code(s): E78.5 - Hyperlipidemia, unspecified Category: Medical (5) Osteopenia: Code(s): M85.80 - Other specified disorders of bone density and structure, unspecified site Category: Medical Qualifiers: Osteopenia location: unspecified Qualified Code(s): M85.80 - Other specified disorders of bone density and structure, unspecified site (6) Transaminitis: Code(s): R74.01 - Elevation of levels of liver transaminase levels Category: Medical Plan For the planned cataract surgeries, maintaining blood pressure is crucial; any readings exceeding 140/80 mmHg should prompt contact. An ECG is ordered, using recent bloodwork to determine surgical readiness. Simvastatin discontinuation will continue, given her enzyme improvement. Her osteopenia remains managed with calcium and vitamin D. Emotional support options are available following recent family losses. Lastly, abstaining from alcohol reduces further liver strain. Patient was informed and verbally consented to the use of an ambient scribe for clinic note documentation during this visit. I thoroughly discussed with the patient the preoperative evaluation for her upcoming cataract surgeries, scheduled for August 05 and August 19. I emphasized the low risk of these procedures but highlighted the vital need for stable blood pressure for surgical clearance, explaining my concerns about the elevated readings observed today despite normal home readings. We discussed holding off antihypertensive treatment due to inconsistent elevation history and continuous home monitoring. Risks of simvastatin were addressed based on past enzyme levels, and current therapy discontinuation seems effective in normalizing liver function. With her anxiety and recent personal losses, I offered various support options. No medications for distress were desired at this time. For continued evaluation, we resolved on no fasting labs, primarily checking Vitamin B12 and folate levels. All treatment, evaluation options, and potential emotional support services were reviewed, emphasizing our plan post-attaining surgical clearance upon successful ECG results. Orders: Orders Vitamin B12 and Folate Today E53.8 - Deficiency of other specified B group vitamins ECG 12 lead EKG Today Z01.818 - Encounter for other preprocedural examination Patient Instructions: - Track blood pressure at home; contact if levels exceed 140/80 mmHg - Proceed with ECG at the hospital as soon as convenient - Continue with calcium and vitamin D supplements for osteopenia - Avoid alcohol consumption to protect liver health - Seek support if needed due to recent bereavement impacts - Follow up with rheumatology for arthritis and notify of any health changes
== END 2024-07-27 15:29 | disposition home or self-care (01) ==
LOC: HO.HMCH 14:55
PROVIDERS: PCP Internal Medicine; Visit Provider Internal Medicine
DX: Z01.818 Encounter for other preprocedural examination (principal); M06.00 Rheumatoid arthritis without rheumatoid factor, unspecified site; E55.9 Vitamin D deficiency, unspecified; E78.5 Hyperlipidemia, unspecified; M85.80 Other specified disorders of bone density and structure, unspecified site; R74.01 Elevation of levels of liver transaminase levels

== ENCOUNTER → 2024-07-27 14:55 | Outpatient (BNVA) | payer MEDICARE, SELFPAY | PROVIDERS: PCP Internal Medicine; Visit Provider Internal Medicine | DX: Z01.818 Encounter for other preprocedural examination (principal); M06.00 Rheumatoid arthritis without rheumatoid factor, unspecified site; E55.9 Vitamin D deficiency, unspecified; E78.5 Hyperlipidemia, unspecified; M85.80 Other specified disorders of bone density and structure, unspecified site; R74.01 Elevation of levels of liver transaminase levels | CPT/HCPCS: 99212 ==

== ENCOUNTER → 2024-07-29 10:22 | Outpatient (REF) | payer MEDICARE, SELFPAY ==
--- NOTE | 2024-07-29 10:28 | ECG_ITS ---
Test Reason : PRE OP Blood Pressure : */* mmHG Vent. Rate : 90 BPM Atrial Rate : 90 BPM P-R Int : 148 ms QRS Dur : 74 ms QT Int : 370 ms P-R-T Axes : 53 74 43 degrees QTcB Int : 452 ms Normal sinus rhythm Nonspecific ST abnormality Abnormal ECG When compared with ECG of 03-Dec-2005 15:12, No significant change was found Referred By: Gina Zapien Electronically Signed By: Andry Swain
== END ==
LOC: HO.CARD 10:22
PROVIDERS: PCP Internal Medicine; Visit Provider Internal Medicine
DX: Z01.818 Encounter for other preprocedural examination (principal)
CPT/HCPCS: 93005

== ENCOUNTER → 2024-07-29 10:28 | Outpatient (BNV) | payer MEDICARE, SELFPAY | PROVIDERS: PCP Internal Medicine; Visit Provider Internal Medicine Cardiovascular Disease | DX: R94.31 Abnormal electrocardiogram [ECG] [EKG] (principal); Z01.810 Encounter for preprocedural cardiovascular examination | CPT/HCPCS: 93010 ==

== ENCOUNTER 2024-08-01 08:23 | Outpatient (AMB) | payer MEDICARE, SELFPAY ==
--- NOTE | 2024-08-01 08:33 | A.OFFVIS_ITS ---
Intake Vital Signs 08/01/24 08:40 Height 5 ft 7 in Weight 171 lb BMI 26.8 BP 146/82 H Blood Pressure Location Lt brachial Position Sitting Intake Visit Reasons: [facility] Mix House Operator Required: No Accompanied by: Self / Same As Patient Allergies No Known Allergies Allergy (Verified 08/01/24 08:41) HPI HPI Comments History of Present Illness Details The patient is a 74-year-old female presenting for her Medicare wellness exam. She is current with her pneumonia vaccinations. Last month, a mammogram returned normal results, and a bone density scan indicated osteopenia. She had a colonoscopy in 2015, with the next scheduled for 2025. No Pap smear is necessary at this age. She experiences hyperlipidemia and is pausing the use of simvastatin pending laboratory results, as it might be impacting liver enzyme levels. Her rheumatoid arthritis is managed by a nursery teacher, with a prescrip tion for methotrexate. PPP handed to patient. [place] of care updated. Her surgical history includes cataract surgery and removal of an ovarian cyst. The patient reports a family history of renal failure and dementia, and she ceased smoking but consumes beer several times a month. It is recommended that she implement a healthcare proxy and continue with end-of-life planning discussions. 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 [employer] Cognitive needs: No Hearing needs: No Vision needs: Yes Questionnaire Medicare Wellness Checkup [age] What gender do you identify with?: female During the past 4 weeks, how much have you been bothered by emotional problems such as feeling anxious, depressed, irritable, sad or downhearted, and blue?: slightly During the past 4 weeks, has your physical & emotional health limited your social activities with family, friends, neighbors, or groups?: not at all During the past 4 weeks, how much bodily pain have you generally had?: very mild pain During the past 4 weeks, was someone available to help you if you needed & wanted help?: yes, as much as I wanted During the past 4 weeks, what was the hardest physical activity you could do for at least 2 minutes?: very heavy Can you get to places out of walking distance without help? (For eg., can you travel alone on buses, taxis or drive your car?): Yes Can you go shopping for groceries or clothes without someone's help?: Yes Can you prepare your own meals?: Yes Can you do your housework without help?: Yes Because of any health problems, do you need the help of another person with your personal care needs such as eating, bathing, dressing or getting around the house?: No Can you handle your own money without help?: Yes During the past 4 weeks, how would you rate your health in general?: good During the past 4 weeks how have things been going for you?: good & bad parts about equal Are you having difficulties driving your car?: no Do you always fasten your seat belt when you are in a car?: yes, usually During past 4 weeks, have you been bothered by the following: never: Falling or dizzy when standing up, Sexual problems?, Trouble eating well?, Teeth or denture problems?, Problems using the telephone? and Tiredness or fatigue? Have you fallen 2 or more times in the past year?: No Are you afraid of falling?: No Are you a smoker?: no During the past 4 weeks, how many drinks of wine, beer, or other alcoholic beverages did you have?: 1 drink or less per week Do you exercise for about 20 minutes 3 or more times a week?: yes, most of the time Have you been given information to help with the following?: no: Hazards in your house that might hurt you? and no: Keeping track of your medications? How often do you have trouble taking medicines the way you have been told to take them?: I always take medicine as prescribed How confident are you that you can control & manage most of your health problems?: very confident What is your race?: White Mini Mental State Exam (MMSE) Orientation What is the (year) (season) (date) (day) (month)?: year, season, date, day and month Where are we (state) (county) (town or city) (hospital) (floor)?: state, county, town or city, hospital/clinic and floor Registration Name of 3 unrelated objects clearly and slowly, then ask patient to repeat all 3 of them. (1st repeat determines score. Make sure they can repeat all three): object 1, object 2 and object 3 Attention & Calculation (CHOOSE ONE) Spell WORLD backwards (DLROW): 5 letters Recall Ask patient to repeat the 3 items from question #3.: object 1, object 2 and object 3 Language Show patient a wristwatch & ask what it is. Repeat for pencil.: watch and pencil Ask the patient to repeat the phrase 'No ifs, ands, or buts' after you.: correct Ask the patient to 'take a piece of paper with their right hand' 'fold paper in half' 'place paper on floor': take paper in right hand, fold paper in half and place paper on floor Print the sentence 'CLOSE YOUR EYES' on a piece. If patient actually closes eyes then score.: followed written direction Give patient a blank piece of paper & ask to write a sentence. Score if it contains a noun & verb.: sentence contains subject and verb Ask patient to copy figure of intersecting pentagons exactly. Score if all 10 angles & 2 intersects are included.: all 10 angles present & 2 are intersected Score Score: 30 Activity of Daily Living Bathing - sponge bath, tub bath or shower: receives no assistance (gets in/out by self, if usual bathing means Dressing - getting clothes from closets & drawers, including inner/outer garments & fasteners.: gets clothes & gets completely dressed without help Toileting - going to the 'toilet room' for urine/bowel elimination & cleaning self/arranging clothes: goes to toilet room, cleans self, arranges clothes without help Transfer: moves in & out of bed and chair without help (may use support object) Continence: controls urination/bowel movements completely by self Feeding: feeds self without help Total Score: 0 Information obtained from: patient Using telephone: independent Traveling: independent Shopping: independent Preparing meals: independent Housework: independent Taking medicine: independent Managing money: independent PHQ-9 Over the last 2 weeks, how often have you been bothered by any of the following problems? 1. Little interest or pleasure in doing things: not at all 2. Feeling down, depressed, or hopeless: not at all 3. Trouble falling or staying asleep, or sleeping too much: not at all 4. Feeling tired or having little energy: not at all 5. Poor appetite or overeating: not at all 6. Feeling bad about yourself - or that you are a failure or have let yourself or your family down: not at all 7. Trouble concentrating on things, such as reading the newspaper or watching television: not at all 8. Moving or speaking so slowly that other people could have noticed. Or the opposite - being so fidgety or restless that you have been moving around a lot more than usual: not at all 9. Thoughts that you would be better off or of hurting yourself in some way: not at all Total score: 0 Depression Screening Interpretation: Negative Depression Screening Done: Yes 87692 - PHQ-9 Billing: Yes Source: Developed by Drs. Maximino Hernandez, Mario Harrington and colleagues, with an educational tahmina from [employer]. Fall Risk Assessment Fall Risk Assessment Fall risk assessment: No Falls in past year AUDIT C Alcohol Use Questionnaire (AUDIT-C) 1. How often do you have a drink containing alcohol?: Monthly or less 2. How many drinks containing alcohol do you have on a typical day when you are drinking?: 1 or 2 3. How often do you have six or more drinks on one occasion?: Never Total Score: 1 Score Reviewed/Action Taken: No MISHA-7 AMB Questionnaire MISHA-7 Date MISHA - 7 assessed: 06/15/24 Source: Developed by Drs. Maximino Hernandez, Mario Harrington and colleagues, with an educational tahmina from [employer]. Thrive Questionnaire Date Thrive assessed: 06/15/24 Review of Systems Const All systems reviewed & are unremarkable except as noted in HPI and below Card Denies chest pain at rest, Denies chest pain with activity, Denies edema, Denies irregular heart rhythm, Denies claudication, Denies dyspnea, Denies dyspnea on exertion, Denies orthopnea, Denies paroxysmal nocturnal dyspnea and Denies slow heart rate Resp Denies cough, Denies dyspnea and Denies dyspnea on exertion GI Denies abdominal pain, Denies change in bowel habits, Denies excessive flatus, Denies nausea and Denies vomiting Neuro Denies confusion and Denies lack of coordination Psych Denies confusion Physical Exam Vital Signs: Last Vital Signs BP 146/82 H 08/01/24 08:40 BMI result Body Mass Index 26.8 Const General: No confusion Orientation/consciousness: patient oriented x3 and No confusion Resp Effort & Inspection: normal respiratory effort Auscultation: clear to auscultation bilaterally Cardio Jugular venous distension: no JVD Rate: regular rate Rhythm: regular rhythm Heart sounds: S1 normal heart sound present and S2 normal heart sound present Neuro General: patient oriented x3, no focal motor deficits and No confusion Romberg Test: Negative Extrem General: Yes full ROM Psych Appearance: grossly normal Assessment & Plan Assessment & Plan (1) Encounter for Medicare annual wellness exam: Code(s): Z00.00 - Encounter for general adult medical examination without abnormal findings Plan The patient's osteopenia will be managed with calcium and vitamin D. Hyperlipidemia requires ongoing monitoring due to potential statin-related liver enzyme elevation, with repeat labs planned. Rheumatoid arthritis management continues with methotrexate. Sulfasalazine is discontinued. Surgical clearance is in place following normal EKG and abdominal ultrasound. Emphasis is placed on immunization and healthcare proxy planning. Patient was informed and verbally consented to the use of an ambient scribe for clinic note documentation during this visit. I discussed with the patient the management of her osteopenia through calcium and vitamin D supplementation. We reviewed the plan to temporarily hold simvastatin due to its potential effect on liver enzymes, with reassessment scheduled in four months. The treatment for her rheumatoid arthritis with methotrexate continues, and we confirmed the discontinuation of sulfasalazine. The patient retains clearance for non-specific surgery due to normal EKG and abdominal ultrasound outcomes. I addressed preventive care strategies, including ongoing vaccinations and reiterated the importance of healthcare proxy. The patient was amenable to all advice and follow-up plans. Orders: Orders Vitamin D 25-OH Total 4 Months E55.9 - Vitamin D deficiency, unspecified Comprehensive [place]. Panel Fast 4 Months M06.00 - Rheumatoid arthritis without rheumatoid factor, unspecified site Lipid Panel 4 Months E78.5 - Hyperlipidemia, unspecified Medications: Discontinued simvastatin Discontinued Reason: Patient Completed Course 10 mg PO BEDTIME 90 days 90 tabs 3RF Patient Instructions: - Continue calcium and vitamin D supplementation as directed. - Avoid simvastatin until re-evaluation in four months. - Follow the rheumatoid arthritis treatment regimen with methotrexate weekly. - Maintain compliance with routine screenings and vaccinations. - Pursue establishing or updating a healthcare proxy and end-of-life planning documents. - Attend scheduled blood work in four months to reassess liver enzyme levels. - Get the annual influenza vaccination. - Follow up with an highway construction inspector as needed for eye care. Quality Reporting (2019) Adult ([facility] 138//) Smoking risk assessment performed?: Yes Patient Tobacco Use Status: Former Tobacco user Fall Risk Screening ([facility] 139) Fall risk assessment: No Falls in past year Depression/Bipolar (159/160/161/177) PHQ-9: Total score: 0 Coding Level of Care Code Medicare Subsequent (G0439) Diagnoses Encounter for Medicare annual wellness exam Z00.00 CPT Codes Advance Care Planning - Advance Care Planning discussion: On file, no changes ([id number]) Advance Care Planning - Time spent: 1-15 minutes, on File ([id number]) Additional Codes PHQ-9 - 17940 - PHQ-9 Billing: Yes ([id number]) Time Spent (min) 34 Advance Care Planning Advance Care Planning discussion: On file, no changes Date of discussion: 08/01/24 Who was present: patient and me Forms completed: Health Care Proxy Time spent: 1-15 minutes, on File Actual minutes spent: 2
[2024-08-01 08:40] VITALS: BP 146/82; BMI 26.8
== END 2024-08-01 09:05 | disposition home or self-care (01) ==
LOC: HO.HMCH 08:23
PROVIDERS: PCP Internal Medicine; Visit Provider Internal Medicine
DX: Z00.00 Encounter for general adult medical examination without abnormal findings (principal)

== ENCOUNTER → 2024-08-01 08:23 | Outpatient (BNVA) | payer MEDICARE, SELFPAY | PROVIDERS: PCP Internal Medicine; Visit Provider Internal Medicine | DX: Z00.00 Encounter for general adult medical examination without abnormal findings (principal); M85.80 Other specified disorders of bone density and structure, unspecified site; M06.00 Rheumatoid arthritis without rheumatoid factor, unspecified site; E55.9 Vitamin D deficiency, unspecified; E78.5 Hyperlipidemia, unspecified | CPT/HCPCS: 96127 ==

== ENCOUNTER → 2024-08-12 08:56 | Outpatient (BNVA) | payer MEDICARE, SELFPAY | PROVIDERS: PCP Internal Medicine ==

== ENCOUNTER → 2024-08-19 08:33 | Outpatient (BNVA) | payer MEDICARE, SELFPAY | PROVIDERS: PCP Internal Medicine | DX: Z13.89 Encounter for screening for other disorder (principal) ==

== ENCOUNTER 2024-09-07 07:34 | Outpatient (REF) | payer MEDICARE, SELFPAY ==
[2024-09-07 08:25] LABS: Cholesterol 234 mg/dL (<200); HDL Cholesterol 66 mg/dL (>40); LDL Cholesterol Calculated 154 mg/dL (<100); Triglycerides 71 mg/dL (<150)
[2024-09-07 08:59] LABS: Folate 10.4 ng/mL (> or = 4.0); Vitamin B12 438 pg/mL (200-900)
== END 2024-09-07 07:35 | disposition home or self-care (01) ==
LOC: HO.LAB 07:34
PROVIDERS: PCP Internal Medicine; Visit Provider Student in an Organized Health Care Education/Training Program
DX: E78.5 Hyperlipidemia, unspecified (principal); E53.8 Deficiency of other specified B group vitamins
CPT/HCPCS: 36415; 80061; 82607; 82746

== ENCOUNTER 2024-09-09 07:30 | Outpatient (REF) | payer MEDICARE, SELFPAY ==
[2024-09-09 08:54] LABS: MANUAL DIFF FLAG NO
[2024-09-09 09:30] LABS: Basophils Absolute Auto 0.1 X10*3/uL (0.0-0.2); Basophils Percent Auto 1.4 % (0-2); Eosinophils Absolute Auto 0.1 X10*3/uL (0.0-0.4); Eosinophils Percent Auto 1.4 % (0-4); Hemoglobin 12.8 g/dl (12.0-16.0); Imm Gran Abs Auto 0.01 X10*3/uL (0.00-0.03); Imm Gran Pct Auto 0.2 % (0.0-0.4); Lymphocytes Absolute Auto 0.9 X10*3/uL (1.2-4.9); Lymphocytes Percent Auto 22.2 % (20-40); Mean Corpuscular HGB Conc 34.6 g/dl (31.0-35.0); Mean Corpuscular Hemoglobin 34.4 pg (27.0-33.0); Mean Corpuscular Volume 99.5 fL (80.0-98.0); Mean Platelet Volume 10.8 fL (9.4-12.3); Monocytes Absolute Auto 0.4 X10*3/uL (0.1-1.2); Monocytes Percent Auto 9.7 % (2-11); Neutrophils Absolute Auto 2.8 x10*3/uL (2.0-8.3); Neutrophils Percent Auto 65.1 % (45-73); Platelet Count 226 X10*3/uL (160-400); Red Blood Count 3.72 X10*6/uL (4.20-5.50); Red Cell Distribution Width 14.7 % (11.0-16.0); White Blood Count 4.2 X10*3/uL (4.8-10.8)
[2024-09-09 09:58] LABS: Alanine Aminotransferase 86 U/L (0-31); Albumin Level 4.4 g/dL (3.5-5.0); Alkaline Phosphatase 91 U/L (39-117); Anion Gap 14 (12-20); Aspartate Amino Transferase 96 U/L (5-31); Bilirubin Total 0.5 mg/dL (0.0-1.0); Blood Urea Nitrogen 9 mg/dL (9-16); C Reactive Protein 0.27 mg/dL (< or = 0.50); Calcium 9.5 mg/dL (8.4-10.2); Carbon Dioxide 23 mmol/L (22-29); Chloride 106 mmol/L (96-108); Estimated Glomerular Filt Rate > 60; Glucose Random 100 mg/dL (60-115); Potassium 4.1 mmol/L (3.3-5.1); Sodium 139 mmol/L (135-145); Total Protein 7.5 g/dL (6.5-8.0)
[2024-09-09 10:09] LABS: Erythrocyte Sedimentation Rate 17 MM/HR (0-20)
[2024-09-09 10:18] LABS: HBS Num1 0.46 mIU/mL (0-7.99); HBc Num1 0.07 S/CO (0.00-0.79); HBsAGNum1 0.44 S/CO (0.00-0.99); Hepatitis A Antibody IgM 0.18 Index (0-0.79); Hepatitis B Core Antibody Nonreactive (Nonreactive); Hepatitis B Surface Antigen Negative (Negative); ~HepC Num1 0.13 S/CO (0.00-0.79); ~Hepatitis A Antibody IgM Nonreactive (Nonreactive); ~Hepatitis B Surface Antibody NONREACTIVE (Nonreactive); ~Hepatitis C Antibody Nonreactive (Nonreactive)
[2024-09-12 01:39] LABS: TS Negative Control Passed; TS Panel A 1; TS Panel B 0; TS Positive Control Passed; TSpotTB Negative (Negative)
[2024-09-13 15:24] LABS: Vitamin D 25-OH, D2 <4 ng/mL; Vitamin D 25-OH, D3 43 ng/mL; Vitamin D 25-OH, Total 43 ng/mL (30-100)
== END 2024-09-09 07:31 | disposition home or self-care (01) ==
LOC: HO.LAB 07:30
PROVIDERS: PCP Internal Medicine; Visit Provider Student in an Organized Health Care Education/Training Program
DX: M06.00 Rheumatoid arthritis without rheumatoid factor, unspecified site (principal); E55.9 Vitamin D deficiency, unspecified; M81.0 Age-related osteoporosis without current pathological fracture; M15.9 Polyosteoarthritis, unspecified; R74.01 Elevation of levels of liver transaminase levels; Z79.631 Long term (current) use of antimetabolite agent; Z51.81 Encounter for therapeutic drug level monitoring; Z79.899 Other long term (current) drug therapy
CPT/HCPCS: 36415; 80053; 82306; 85025; 85652; 86140; 86481; 86704; 86706; 86709; 86803; 87340; 99212

== ENCOUNTER 2024-09-09 07:30 | Outpatient (AMB) | payer MEDICARE, SELFPAY ==
--- NOTE | 2024-09-09 07:32 | MHC.OFFVIS ---
Vital Signs 09/09/24 07:38 Height 5 ft 7 in Weight 170 lb 10.205 oz BMI 26.7 BP 180/82 H Blood Pressure Location Lt brachial Position Sitting Pulse 108 H Pulse Source Pulse Oximeter Pulse Oximetry (%) 99 Oxygen Delivery Method Room Air Intake Visit Reasons: RA Intake Note: Patient presents for RA follow up. Allergies No Known Allergies Allergy (Verified 09/09/24 07:37) Medication List - Last Reconciled 09/09/24 by Reta Mejia MD calcium carbonate 600 mg PO BID 90 days cholecalciferol (vitamin D3) (Vitamin D3) 25 mcg PO DAILY 90 days folic acid 1 mg PO DAILY insulin syringe-needle U-100 USE ONCE WEEKLY WITH METHOTREXATE methotrexate sodium (PF) 15 mg (0.6 mL) subcut QWEEK 90 days sulfasalazine 1.5 grams (3 x 500 mg) PO BID HPI Comments Details: Patient is a 74-year-old female with hyperlipidemia, IBS, osteopenia, polyarticular osteoarthritis and seronegative rheumatoid arthritis here today for follow up Interval History: Patient last seen 06/21/2024 with me. At that time she was following up for her seronegative rheumatoid arthritis on subcutaneous methotrexate 25 mg weekly and sulfasalazine 1500 mg twice a day. Despite this regimen she continued to complain of joint pain involving her knees, hips, back, shoulders (especially the left shoulder), 1st CMC joint bilaterally and wrists. Shoulder injection had transient relief but this was not sustained. Upon her examination there was no synovitis noted and her pain was attributed to osteoarthritic changes rather than rheumatoid arthritis. Her methotrexate was decreased due to transaminitis. She was recommended to use topical diclofenac 4 times a day Rheumatologic History: Seronegative rheumatoid arthritis -ve RF -ve CCP erosive dx 07/2023 MTX 07/2023 partially effective, switched to SQ 09/2023 SSZ added 11/2023 Attempts to to add biologic have been met with high co-pay from insurance. They have tried Enbrel, Humira and other medications. Patient is not willing to do monthly infusions. Initial history: This is a 73-year-old female who presents for evaluation of diffuse joint pain. The condition started back in June with right knee pain followed by left knee pain, bilateral wrist pain, bilateral shoulder pain and neck pain. Associated with swelling of her wrists and knees. States that her symptoms are worse in the morning,.She has stiffness lasting all day. Patient denies any recent history of respiratory or urinary infections. She denies any fevers or weight loss. She denies any history of DVT/PE. She is unaware of any family history of an autoimmune rheumatic disease. Current Rheumatology Medication(s): Methotrexate 15 mg subcutaneous weekly Folic acid 1 mg daily Sulfasalazine 1500 mg once a day [facility] Medical History (Updated 09/09/24 @ 08:17 by Reta Mejia MD) Polyarticular osteoarthritis Osteoporosis Elevated blood pressure reading without diagnosis of hypertension Osteopenia Dyslipidemia IBS (irritable bowel syndrome) Surgical History Keloid History of removal of ovarian cyst Family History Father Renal failure Mother Dementia Social History Housing: House Alcohol intake: current Alcohol intake frequency: a few times a month Alcohol type: beer Patient Tobacco Use Status: Former Tobacco user Tobacco use type: Cigarette e-Cigarette/Vaping Use: Never Used Second Hand Smoke Exposure: No service: No Current occupational status: retired 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 [employer] Cognitive needs: No Hearing needs: No Vision needs: Yes Review of Systems Const Details: Review of Systems Constitutional: Denies fever, chills, weight loss ENT: Denies vision changes, eye pain or eye redness, dental caries, dry mouth GI: Denies nausea, vomiting, diarrhea, abdominal pain, change in BM Pulm: Denies SOB, FLOOD, hemoptysis, wheezing Cards: Denies chest pain, palpitations Skin: Denies Raynaud's, rash, nail changes, photosensitivity, RESOURCE CONSERVATION SPECIALIST: Denies headaches, weakness, paresthesias, recurrent falls MSK: as per HPI All other systems reviewed and are unremarkable except noted above Physical Exam Vital Signs: Last Vital Signs Pulse 108 H 09/09/24 07:38 BP 180/82 H 09/09/24 07:38 Pulse Ox 99 09/09/24 07:38 Oxygen Delivery Method Room Air 09/09/24 07:38 BMI result Body Mass Index 26.7 Vital signs reviewed Physical Examination CONSTITUITIONAL Patient alert and cooperative. Well appearing and in no apparent painful distress HEENT Conjunctiva and sclera clear. ?Pupils equal round and reactive to light. ?No lymphadenopathy. ? CHEST/RESPIRATORY SYSTEM Normal respiratory effort and able to speak in complete sentences. ?Clear to auscultation bilaterally. ?No crackles, rales, rhonchi, wheezes heard. CARDIAC SYSTEM Regular rate and rhythm. ?S1 and S2 heard no murmurs. ?Radial pulses intact bilaterally MSK Hands: ?Good clip bolter and wrapper strength bilaterally. No deformities noted. ?No synovitis noted to the MCPs, PIPs or DIPs. Tenderness to palpation of bilateral 1st CMC joints. Wrists: ?Full range of motion at the wrists without pain. ?Mild tenderness to palpation of bilateral wrists. Elbows: Full range of motion without pain. No tenderness, weakness, swelling, increased warmth or erythema. Shoulders: Full range of motion without pain. Tenderness to palpation of the left AC joint and left posterior shoulder. Positive empty can maneuver. Right shoulder without any issues. Hips: Full range of motion. Mild pain on external rotation of the bilateral hips. Hip bursa: No tenderness to palpation Knees: ?Full range of motion. ?No tenderness, swelling, increased warmth or erythema.? Crepitations felt bilaterally. Ankles: Full range of motion. ?No tenderness, swelling, increased warmth or erythema.? Feet: ?Negative squeeze test. ?No tenderness to palpation or swelling of the MTPs. Tender points:?No tenderness to palpation of the bilateral trapezius, supraspinatus, greater trochanters, anterior costochondral junctions, bilateral gluteal areas, bilateral suboccipital muscle insertions SKIN Skin intact without rashes. Results Reviewed Results Reviewed: Laboratory Tests 03/10/24 06/13/24 09:36 08:56 WBC 5.7 RBC 3.34 L Hgb 12.2 Hct 34.9 L Plt Count 242 ESR 18 Sodium 143 Potassium 4.1 Chloride 109 H Carbon Dioxide 23 BUN 10 Creatinine 0.83 AST 35 H 132 H ALT 29 154 H C-Reactive Protein 0.24 Laboratory Tests 07/29/23 16:06 Hepatitis A IgM Ab Nonreactive Hep Bs Antigen Negative Hep Bs Antibody NONREACTIVE Hep B Core Total Ab Nonreactive Hepatitis C Ab (EIA) Nonreactive TB Test (T-Spot) Com Negative US Abdomen with elastography 07/2024 FINDINGS: Liver: The right lobe of the liver measures 14.1 cm in size. The left lobe of the liver measures 7.6 cm in size. The liver demonstrates normal homogeneous echotexture. No focal mass or intrahepatic biliary ductal dilatation is identified. There is normal hepatopedal flow in the portal vein. Ultrasound elastography of the liver was performed with 10 separate measurements of the liver parenchyma with the patient in the supine position. Measurements were obtained approximately 2 cm below Lora's capsule and perpendicular to the capsule. Images are of satisfactory quality. The median shear wave velocity is 1.52 m/s. The interquartile range/median (IQR/median) is 0.19. Gallbladder and biliary tree: The gallbladder is unremarkable, without evidence of calculi, wall thickening, or pericholecystic fluid. There is no sonographic Cobos sign. The common bile duct is normal in caliber measuring 2 mm. Kidneys: The right kidney measures 8.5 cm in length. The left kidney measures 9.3 cm in length. The kidneys are unremarkable, without evidence of masses, hydronephrosis, or calculi. Pancreas: The pancreatic head, neck, and body are unremarkable. The pancreatic tail is obscured by bowel gas. Spleen: The spleen is normal in size and contour, measuring 6.0 cm in length. Abdominal aorta and inferior vena cava: The visualized portions of the abdominal aorta and inferior vena cava are normal in caliber. There is no free fluid in the abdomen. IMPRESSION: Unremarkable abdominal ultrasound. The median shear wave velocity in the liver is 1.52 m/s, corresponding to a median liver stiffness of 6.96 kPa. The IQR/median value is 0.19. This is indicative of a poor quality data set, and the estimated liver stiffness may be unreliable. Findings are indicative of a low elastography value which rules out advanced chronic liver disease in asymptomatic patients. DEXA 06/2024 FINDINGS: The bone mineral density of the lumbar spine is 1.061 with a T-score of -0.9, and a Z-score of 0.5. This is indicative of normal bone mineral density. This represents a BMD change of -3.1% compared to the prior exam. This is statistically significant. The bone mineral density of the left total hip is 0.772 with a T-score of -1.9, and a Z-score of -0.4. This is indicative of osteopenia. This represents a BMD change of -3.0% compared to the prior exam. This is not statistically significant. The bone mineral density of the left femoral neck is 0.777 with a T-score of -1.9, and a Z-score of -0.2. This is indicative of osteopenia. This represents a BMD change of -3.6% compared to the prior exam. FRACTURE RISK: The FRAX index suggests a ten year probability of major osteoporotic fracture of 16.7%, and of hip fracture 4.5%. Assessment & Plan Assessment & Plan (1) Seronegative rheumatoid arthritis: Comment: -ve RF -ve CCP erosive dx 07/2023 MTX 07/2023 partially effective, switched to SQ 09/2023 SSZ added 11/2023 Code(s): M06.00 - Rheumatoid arthritis without rheumatoid factor, unspecified site Category: Medical Plan: #Seronegative RA Patient is a 74-year-old female with seronegative rheumatoid arthritis. Currently in remission with no evidence of synovitis on exam today. We will continue the regimen of 15 mg subcutaneous methotrexate every week and sulfasalazine 1500 mg once a day Plan - Mtx to 15mg SC every week - Folic acid 1 mg every day - SSZ 1500mg daily - Labs today: CBC, CMP, ESR, CRP, hepatitis panel, T spot, Vit D - RTC 4 months - Labs before visit: CBC, CMP, ESR, CRP (2) Osteoporosis: Comment: DEXA 06/2024: AP Spine -0.9, Left femur neck -1.9, Left femur total -1.9. FRAX 16.7/4.5 Code(s): M81.0 - Age-related osteoporosis without current pathological fracture Category: Medical Qualifiers: Osteoporosis type: age-related Presence of current pathological fracture: without current pathological fracture Qualified Code(s): M81.0 - Age-related osteoporosis without current pathological fracture Plan: #Osteopenia with elevated FRAX Patient is a 74-year-old female with osteopenia with an elevated FRAX index 4.5% for hip fracture which qualifies for treatment. Given her difficulties swallowing large pills we will pursue IV Reclast once a year for treatment. Plan - IV reclast 5mg Yearly (3) Polyarticular osteoarthritis: Code(s): M15.9 - Polyosteoarthritis, unspecified Category: Medical Plan: #Polyarticular OA Patient with polyarticular osteoarthritis, particularly hand OA. 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 Limit alcohol and avoid Bactrim ? Monitoring: ?CBC, BMP, LFTs every 3-4 months and hepatitis serologies as needed (6) Encounter for monitoring sulfasalazine therapy: Code(s): Z51.81 - Encounter for therapeutic drug level monitoring; Z79.899 - Other intermodal customer service (current) drug therapy Plan: #Long-term Use of Sulphasalazine Discussed with patient the risks and benefits of sulfasalazine in the management of the rheumatic condition Benefits include: - Reduced pain, reduce mortality, maintenance of remission then reduction of flares Risks include: - GI upset, hemolysis (especially if G6PD deficiency), eosinophilia, headache, dizziness, rash, elevated LFTs Plan I spent 30 minutes reviewing the record and labs, taking a history, examining the patient, discussing the treatment plan and documenting in the medical record Orders: Orders Comprehensive Met. Panel 4 Months M06.00 - Rheumatoid arthritis without rheumatoid factor, unspecified site C Reactive Protein 4 Months M06.00 - Rheumatoid arthritis without rheumatoid factor, unspecified site Erythrocyte Sedimentation Rate 4 Months M06.00 - Rheumatoid arthritis without rheumatoid factor, unspecified site Hepatitis A,B,C Profile Today M06.00 - Rheumatoid arthritis without rheumatoid factor, unspecified site T Spot TB Today M06.00 - Rheumatoid arthritis without rheumatoid factor, unspecified site Vitamin D 25-OH (D2 and D3) Today E55.9 - Vitamin D deficiency, unspecified Complete Blood Count Auto Diff Today M06.00 - Rheumatoid arthritis without rheumatoid factor, unspecified site Comprehensive Met. Panel Today M06.00 - Rheumatoid arthritis without rheumatoid factor, unspecified site C Reactive Protein Today M06.00 - Rheumatoid arthritis without rheumatoid factor, unspecified site Complete Blood Count Auto Diff 4 Months M06.00 - Rheumatoid arthritis without rheumatoid factor, unspecified site Erythrocyte Sedimentation Rate Today M06.00 - Rheumatoid arthritis without rheumatoid factor, unspecified site Referrals Infusion Center Notification M81.0 - Age-related osteoporosis without current pathological fracture Medications: Changed From sulfasalazine 1.5 grams (3 x 500 mg) PO BID 360 tabs 1RF M06.00 - Rheumatoid arthritis without rheumatoid factor, unspecified site To sulfasalazine 1.5 grams (3 x 500 mg) PO DAILY 90 days 270 tabs 1RF M06.00 - Rheumatoid arthritis without rheumatoid factor, unspecified site Refilled methotrexate sodium (PF) draw 1 mL (25 mg) & discard the rest 15 mg (0.6 mL) subcut QWEEK 90 days 13 mL 1RF M06.00 - Rheumatoid arthritis without rheumatoid factor, unspecified site folic acid 1 mg PO DAILY 90 tabs 1RF Coding Level of Care Code Est Pt Level 4 (18953) Complex EM visit Add On G2211 Diagnoses Seronegative rheumatoid arthritis M06.00 Age-related osteoporosis without current pathological fracture M81.0 Osteoporosis type: age-related Presence of current pathological fracture: without current pathological fracture Polyarticular osteoarthritis M15.9 Transaminitis R74.01 [facility] methotrexate user Z79.631 Encounter for monitoring sulfasalazine therapy Z51.81; Z79.220
[2024-09-09 07:38] VITALS: BP 180/82; PULSE 108; O2SAT 99; BMI 26.7
== END 2024-09-09 08:11 | disposition home or self-care (01) ==
LOC: HO.RHE 07:31
PROVIDERS: PCP Internal Medicine; Visit Provider Student in an Organized Health Care Education/Training Program
DX: M06.00 Rheumatoid arthritis without rheumatoid factor, unspecified site (principal); M81.0 Age-related osteoporosis without current pathological fracture; M15.9 Polyosteoarthritis, unspecified; R74.01 Elevation of levels of liver transaminase levels; Z79.631 Long term (current) use of antimetabolite agent; Z51.81 Encounter for therapeutic drug level monitoring; Z79.899 Other long term (current) drug therapy
CPT/HCPCS: 99214; G2211

== ENCOUNTER 2024-09-23 08:30 | Outpatient (REF) | payer MEDICARE, SELFPAY ==
[2024-09-23 10:16] LABS: Alanine Aminotransferase 34 U/L (0-31); Albumin Level 4.3 g/dL (3.5-5.0); Alkaline Phosphatase 85 U/L (39-117); Anion Gap 13 (12-20); Aspartate Amino Transferase 40 U/L (5-31); Bilirubin Total 0.7 mg/dL (0.0-1.0); Blood Urea Nitrogen 12 mg/dL (9-16); Calcium 9.8 mg/dL (8.4-10.2); Carbon Dioxide 25 mmol/L (22-29); Chloride 107 mmol/L (96-108); Estimated Glomerular Filt Rate 59; Glucose Random 96 mg/dL (60-115); Potassium 4.1 mmol/L (3.3-5.1); Sodium 141 mmol/L (135-145); Total Protein 7.4 g/dL (6.5-8.0)
== END 2024-09-23 08:31 | disposition home or self-care (01) ==
LOC: HO.LAB 08:30
PROVIDERS: PCP Internal Medicine; Visit Provider Student in an Organized Health Care Education/Training Program
DX: R74.01 Elevation of levels of liver transaminase levels (principal)
CPT/HCPCS: 36415; 80053

== ENCOUNTER 2024-09-29 08:22 | Outpatient (RCR) | payer MEDICARE, SELFPAY ==
[2024-09-29 08:27] VITALS: BP 193/67; PULSE 87; RESP 18; TEMP 36.1
[2024-09-29] MEDS: Zoledronic Acid/Mannitol-Water 5 MG/100 ML PGGYBK.BTL IV (08:38)
== END 2024-09-29 09:02 | disposition home or self-care (01) ==
LOC: HO.INF 08:22
PROVIDERS: Visit Provider Student in an Organized Health Care Education/Training Program
DX: M81.0 Age-related osteoporosis without current pathological fracture (principal)
CPT/HCPCS: 96374; J3489

== ENCOUNTER 2024-12-16 06:58 | Outpatient (REF) | payer MEDICARE, SELFPAY ==
--- OUTSIDE RECORDS SUMMARY | 2024-12-16 07:01 | XMS_ITS | Patient Health Record ---
Author Organization [facility] Address [address] [place] [address] Care Team Providers Care Meteorology Professor Name Role Phone Gina Hinton Primary Care Provider Maximino Young Unavailable [phone] Reason For Referral No Information Medications Medication SIG (Take, Route, Frequency, Duration) Notes Start Date End Date Status Colyte w Flavor Packs 240 GM as directed Orally as directed for 1 day(s) 12/26/2014 Active Simvastatin 10 MG 1 tablet in the even ing Orally Once a day Active Immunizations Vaccine Route Administration Date Status Comme nts Flu vaccine no Preserv 3 and > Unknown 01/31/2014 Admin istered Problems Problem Type SNOMED Code ICD Code Onset Dates Problem Status W/U Status Risk Notes Problem Pre-surgery evaluation (399433835) Other specified pre-operative examination (V72.83) Active confirmed Problem Colon cancer screening (995956143) Colon cancer screening (V76.51) Active confirmed Problem History of polyp of colon (650300356) H/O adenomatous polyp of colon (V12.72) Active confirmed Plan Of Treatment Future Test Test Name Order Date COLONOSCOPY 12/26/2014 Insurance Providers Payer Name Payer Address Payer Phone Subscriber Number Group Number Insured Name Patient Relationship to Insured Coverage Start Date Coverage End Date MEDICARE OF [place] [address] [place] [id number] [phone] [id number] DIPIKA HAYES Self - patient is the insured [employer] CLAIMS [address] [place] [address] [phone] [id number] DIPIKA HAYES Self - patient is the insured Medical (General) History Medical History History ICD Code She underwent an initial col onoscopy in April [address] Chamorro with the removal of a 1.5 cm rectal tubular adenoma--a followup flexible sigmoidoscopy later that year was negative for any residual polyp tissue; Colonoscopy 11-09-2009 with ia was negative except for diverticulsois and internal hemorrhoids hyperlipidemia Denies UT,DM,CVA,Lung disease,renal dise ase EGD in [address] Chamorro was negative for any significant findings other than some minimal changes of gastroesophageal reflux Surgical History Surgery Date(Month/Year) Appendectomy 1973 Laparotomy for adhesions about six month s after the appendectomy
[2024-12-16 07:13] LABS: MANUAL DIFF FLAG NO
[2024-12-16 07:32] LABS: Hematocrit 35.9 % (37.0-47.0); Hematocrit 36.2 % (37.0-47.0); Hemoglobin 12.3 g/dl (12.0-16.0); Hemoglobin 12.4 g/dl (12.0-16.0); Imm Gran Abs Auto 0.01 X10*3/uL (0.00-0.03); Imm Gran Abs Auto 0.02 X10*3/uL (0.00-0.03); Imm Gran Pct Auto 0.2 % (0.0-0.4); Imm Gran Pct Auto 0.4 % (0.0-0.4); Lymphocytes Absolute Auto 1.7 X10*3/uL (1.2-4.9); Lymphocytes Absolute Auto 1.8 X10*3/uL (1.2-4.9); Mean Corpuscular HGB Conc 34.0 g/dl (31.0-35.0); Mean Corpuscular HGB Conc 34.5 g/dl (31.0-35.0); Mean Corpuscular Hemoglobin 34.2 pg (27.0-33.0); Mean Corpuscular Hemoglobin 34.8 pg (27.0-33.0); Mean Corpuscular Volume 100.6 fL (80.0-98.0); Mean Corpuscular Volume 100.8 fL (80.0-98.0); NRBC Abs Auto 0.000 X10*3/uL (0.0-0.012); NRBC Pct Auto 0.0 /100WBC (0.0-0.2); Platelet Count 207 X10*3/uL (160-400); Platelet Count 211 X10*3/uL (160-400); Red Blood Count 3.56 X10*6/uL (4.20-5.50); Red Blood Count 3.60 X10*6/uL (4.20-5.50); White Blood Count 4.8 X10*3/uL (4.8-10.8)
[2024-12-16 07:50] LABS: Alanine Aminotransferase 18 U/L (0-31); Albumin Level 4.2 g/dL (3.5-5.0); Alkaline Phosphatase 70 U/L (39-117); Anion Gap 12 (12-20); Aspartate Amino Transferase 37 U/L (5-31); Blood Urea Nitrogen 12 mg/dL (9-16); Calcium 9.6 mg/dL (8.4-10.2); Carbon Dioxide 25 mmol/L (22-29); Chloride 108 mmol/L (96-108); Cholesterol 241 mg/dL (<200); Estimated Glomerular Filt Rate 58; HDL Cholesterol 56 mg/dL (>40); Potassium 5.2 mmol/L (3.3-5.1); Sodium 140 mmol/L (135-145); Total Protein 7.3 g/dL (6.5-8.0); Triglycerides 96 mg/dL (<150)
== END 2024-12-16 06:59 | disposition home or self-care (01) ==
LOC: HO.LAB 06:58
PROVIDERS: Absent Provider Student in an Organized Health Care Education/Training Program; PCP Internal Medicine; Visit Provider Internal Medicine
DX: M06.00 Rheumatoid arthritis without rheumatoid factor, unspecified site (principal); E55.9 Vitamin D deficiency, unspecified; E78.5 Hyperlipidemia, unspecified; D64.9 Anemia, unspecified
CPT/HCPCS: 36415; 80053; 80061; 82306; 85025; 85652; 86140

== ENCOUNTER 2024-12-21 08:06 | Outpatient (AMB) | payer MEDICARE, SELFPAY ==
--- NOTE | 2024-12-21 08:08 | A.OFFPC_ITS ---
Vital Signs 12/21/24 08:09 Height 5 ft 7 in Weight 173 lb 4 oz BMI 27.1 BP 160/100 H Blood Pressure Location Lt brachial Position Sitting Pulse 115 H Pulse Source Pulse Oximeter Temp 97.3 F Temp Source Temporal Artery Scan Pulse Oximetry (%) 96 Oxygen Delivery Method Room Air Intake Visit Reasons: bp,lipids Intake Note: Patient is here to follow up on Bp, Lipids. Right Of Way Buyer Required: No Teacher Adventure Education: Not Required per policy Accompanied by: Self / Same As Patient Allergies No Known Allergies Allergy (Verified 12/21/24 08:49) Medication List - Last Reconciled 12/21/24 by Gina Zapien MD calcium carbonate 600 mg PO BID 90 days cholecalciferol (vitamin D3) (Vitamin D3) 25 mcg PO DAILY 90 days folic acid 1 mg PO DAILY insulin syringe-needle U-100 USE ONCE WEEKLY WITH METHOTREXATE methotrexate sodium (PF) 15 mg (0.6 mL) subcut QWEEK 90 days sulfasalazine 1.5 grams (3 x 500 mg) PO DAILY 90 days Tobacco use date assessed: 12/21/24 Fall risk assessment: No Falls in past year Last assessed Fall Risk: 12/21/24 Dental Screening Dental Screen Date: 06/15/24 HPI HPI Comments History of Present Illness Details The patient is a 74-year-old female presenting with rheumatoid arthritis, osteoporosis, and dyslipidemia. Patient with elevated blood pressure measurement that will be recheck in 3 weeks by nurse navigator. Rheumatoid arthritis has been a chronic condition for the patient, causing bone pain and stiffness, particularly upon waking. She is under the care of a travel director for this condition. Osteopenia was identified following a bone density test conducted in June. Dyslipidemia management has been complicated by transaminitis, leading to the temporary cessation of statin therapy. A liver ultrasound showed no significant abnormalities, and the patient has mildly elevated potassium levels, which are not considered significant. The patient's cholesterol remains elevated, with a Wanchese risk score of 9.6%, indicating a need for statin therapy. However, the patient prefers to attempt dietary modifications to lower cholesterol and plans to reassess in six months. [facility] Medical History Polyarticular osteoarthritis Osteoporosis Elevated blood pressure reading without diagnosis of hypertension Osteopenia Dyslipidemia IBS (irritable bowel syndrome) Surgical History Keloid History of removal of ovarian cyst Family History Father Renal failure Mother Dementia Social History Housing: House Alcohol intake: current Alcohol intake frequency: a few times a month Alcohol type: beer Patient Tobacco Use Status: Former Tobacco user Tobacco use type: Cigarette e-Cigarette/Vaping Use: Never Used Second Hand Smoke Exposure: Yes service: No Current occupational status: retired 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 1. Little interest or pleasure in doing things: not at all 2. Feeling down, depressed, or hopeless: not at all 3. Trouble falling or staying asleep, or sleeping too much: not at all 4. Feeling tired or having little energy: not at all 5. Poor appetite or overeating: not at all 6. Feeling bad about yourself - or that you are a failure or have let yourself or your family down: not at all 7. Trouble concentrating on things, such as reading the newspaper or watching te levision: not at all 8. Moving or speaking so slowly that other people could have noticed. Or the opposite - being so fidgety or restless that you have been moving around a lot more than usual: not at all 9. Thoughts that you would be better off or of hurting yourself in some way: not at all Total score: 0 Depression Screening Interpretation: Negative Depression Screening Done: Yes 65613 - PHQ-9 Billing: Yes Source: Developed by Drs. Maximino Hernandez, Flor Reddy, Mario Sherman and colleagues, with an educational tahmina from [employer]. Thrive Questionnaire Date Thrive assessed: 06/15/24 I am a: Patient What is your living situation today?: I have a steady place to live Within the past 12 months, did the food you bought not last and you didn't have the money to get more?: Never true Within the past 12 months, did you worry whether your food would run out before you got money to buy more?: Never true Do you have trouble paying for medicines?: No Do you have trouble getting transportation to medical appointments?: No Do you have trouble paying your heating and electricity bill?: No Do you have trouble taking care of your child, family member or friend?: No Do you have trouble with day-to-day activities such as bathing, preparing meals, shopping, managing finances, etc.?: No Are you currently unemployed and looking for a job?: No Are you interested in more education?: No Please select the resources that you would like help with: None Currently or been in a relationship where the following occur: No concerns reported THRIVE Score: 0 AUDIT C Alcohol Use Questionnaire (AUDIT-C) 1. How often do you have a drink containing alcohol?: Monthly or less Total Score: 1 MISHA-7 AMB Questionnaire MISHA-7 Date MISHA - 7 assessed: 06/15/24 Feeling nervous, anxious, or on edge: 0 = Not at all Not being able to stop or control worryin = Not at all Worrying too much about different things: 0 = Not at all Trouble relaxin = Not at all Being so restless that it is hard to sit still: 0 = Not at all Becoming easily annoyed or irritable: 0 = Not at all Feeling afraid as if something awful might happen: 0 = Not at all Total MISHA-7 score (0-4 normal; 5-9 mild; 10-14 moderate; 15-21 severe): 0 Source: Developed by Drs. Maximino Hernandez, Flor Reddy, Mario Sherman and colleagues, with an educational tahmina from [employer]. MISHA-7 Assessment Billing MISHA-7 Assessment Tool: MISHA-7 Assessment 92107 Review of Systems Const All systems reviewed & are unremarkable except as noted in HPI and below Card Denies chest pain at rest, Denies chest pain with activity, Denies edema, Denies irregular heart rhythm, Denies claudication, Denies dyspnea, Denies dyspnea on exertion, Denies orthopnea, Denies paroxysmal nocturnal dyspnea and Denies slow heart rate Resp Denies cough, Denies dyspnea and Denies dyspnea on exertion Physical exam (Primary Care) Vital Signs: Last Vital Signs Temp 97.3 F 12/21/24 08:09 Pulse 115 H 12/21/24 08:09 BP 160/100 H 12/21/24 08:09 Pulse Ox 96 12/21/24 08:09 Oxygen Delivery Method Room Air 12/21/24 08:09 BMI result Body Mass Index 27.1 Tobacco/Smoking Status: Tobacco use Status Tobacco use date assessed 12/21/24 12/21/24 08:13 Patient Tobacco Use Status Former Tobacco user 12/21/24 08:13 Tobacco use type Cigarette 12/21/24 08:13 e-Cigarette/Vaping Use Never Used 12/21/24 08:13 PHQ-9: PHQ-9 Score PHQ-9: Total score 0 12/21/24 08:54 Depression Screening Interpretation: Negative Thrive Assessment: Date of Thrive Assessment Date Thrive assessed 06/15/24 12/21/24 08:13 Currently or been in a relationship where the following occur: No concerns reported Resp Effort & Inspection: normal respiratory effort Auscultation: clear to auscultation bilaterally Cardio Jugular venous distension: no JVD Rate: regular rate Rhythm: regular rhythm Heart sounds: S1 normal heart sound present and S2 normal heart sound present Extrem General: Yes full ROM Coding Level of Care Code Est Pt Level 4 (65187) Complex EM visit Add On G2211 Diagnoses Elevated blood pressure reading without diagnosis of hypertension R03.0 Dyslipidemia E78.5 Age-related osteoporosis without current pathological fracture M81.0 Osteoporosis type: age-related Presence of current pathological fracture: without current pathological fracture Transaminitis R74.01 Seronegative rheumatoid arthritis M06.00 Additional Codes MISHA-7 Assessment Billing - MISHA-7 Assessment Tool: MISHA-7 Assessment 48722 ([id number]) PHQ-9 - 72652 - PHQ-9 Billing: Yes ([id number]) Time Spent (min) 22 Assessment & Plan Assessment & Plan (1) Elevated blood pressure reading without diagnosis of hypertension: Code(s): R03.0 - Elevated blood-pressure reading, without diagnosis of hypertension Category: Medical (2) Dyslipidemia: Code(s): E78.5 - Hyperlipidemia, unspecified Category: Medical (3) Osteoporosis: Comment: DEXA 06/2024: AP Spine -0.9, Left femur neck -1.9, Left femur total -1.9. FRAX 16.7/4.5 Code(s): M81.0 - Age-related osteoporosis without current pathological fracture Category: Medical Qualifiers: Osteoporosis type: age-related Presence of current pathological fracture: without current pathological fracture Qualified Code(s): M81.0 - Age- related osteoporosis without current pathological fracture (4) Transaminitis: Code(s): R74.01 - Elevation of levels of liver transaminase levels Category: Medical (5) Seronegative rheumatoid arthritis: Comment: -ve RF -ve CCP erosive dx 07/2023 MTX 07/2023 partially effective, switched to SQ 09/2023 SSZ added 11/2023 Code(s): M06.00 - Rheumatoid arthritis without rheumatoid factor, unspecified site Category: Medical Plan Plan Patient was informed and verbally consented to the use of an ambient scribe for clinic note documentation during this visit. 1. Rheumatoid arthritis, unspecified M06.9 HCC 40 The patient continues to experience bone pain and stiffness, particularly upon waking, and is under the care of a travel director. 2. Age-related osteoporosis without current pathological fracture M81.0 Osteoporosis was identified following a bone density test conducted in June, and ongoing monitoring is implied. 3. Hyperlipidemia, unspecified E78.5 Dyslipidemia management is complicated by transaminitis, leading to the temporary cessation of statin therapy. The patient has opted for dietary modifications to lower cholesterol, with plans to reassess in six months. 4. Elevation of levels of liver transaminase levels R74.01 Transaminitis has led to the temporary cessation of statin therapy, although a liver ultrasound showed no significant abnormalities. Orders: Orders Lipid Panel 4 Months E78.5 - Hyperlipidemia, unspecified Comprehensive [place]. Panel Fast 4 Months E78.5 - Hyperlipidemia, unspecified
[2024-12-21 08:09] VITALS: BP 160/100; PULSE 115; TEMP 36.3; O2SAT 96; BMI 27.1
--- OUTSIDE RECORDS SUMMARY | 2024-12-21 08:27 | XMS_ITS | Patient Health Record ---
Author Organization [facility] Address [address] [place] [address] Care Team Providers Care Wastewater Treatment Engineer Name Role Phone Gina Hinton Primary Care Provider Maximino Young Unavailable [phone] Reason For Referral No Information Medications Medication [...] W/U Status Risk Notes Problem Pre-surgery evaluation (674196161) Other specified pre-operative examination (V72.83) Active confirmed Problem Colon cancer screening (107237647) Colon cancer screening (V76.51) Active confirmed Problem History of polyp of colon (869821497) H/O adenomatous polyp of colon (V12.72) Active confirmed Plan Of Treatment Future Test Test Name Order Date COLONOSCOPY 12/26/2014 Insurance Providers Payer Name Payer Address Payer Phone Subscriber Number Group Number Insured Name Patient Relationship to Insured Coverage Start Date Coverage End Date MEDICARE OF [place] [address] [place] [id number] [phone] [id number] DIPIKA HAYES Self - patient is the insured [employer] ATT[employer] CLAIMS [address] [place] [address] [id number] DIPIKA HAYES Self - patient is the insured Medical (General) History Medical History History ICD Code She underwent an initial col onoscopy in April [address] Chamorro with the removal of a 1.5 cm rectal tubular adenoma--a followup flexible sigmoidoscopy later that year was negative for any residual polyp tissue; Colonoscopy 11-09-2009 with hi was negative except for diverticulsois and internal hemorrhoids hyperlipidemia Denies AL,DM,CVA,Lung disease,renal dise ase EGD in [address] Chamorro was negative for any significant findings other than some minimal changes of gastroesophageal reflux Surgical History Surgery Date(Month/Year) Appendectomy 1973 Laparotomy for adhesions about six month s after the appendectomy
== END 2024-12-21 09:06 | disposition home or self-care (01) ==
LOC: HO.HMCH 08:06
PROVIDERS: PCP Internal Medicine; Visit Provider Internal Medicine
DX: R03.0 Elevated blood-pressure reading, without diagnosis of hypertension (principal); E78.5 Hyperlipidemia, unspecified; M06.00 Rheumatoid arthritis without rheumatoid factor, unspecified site; M81.0 Age-related osteoporosis without current pathological fracture; R74.01 Elevation of levels of liver transaminase levels

== ENCOUNTER → 2024-12-21 08:06 | Outpatient (BNVA) | payer MEDICARE, SELFPAY | PROVIDERS: PCP Internal Medicine; Visit Provider Internal Medicine | DX: R03.0 Elevated blood-pressure reading, without diagnosis of hypertension (principal); E78.5 Hyperlipidemia, unspecified; M81.0 Age-related osteoporosis without current pathological fracture; R74.01 Elevation of levels of liver transaminase levels; M06.00 Rheumatoid arthritis without rheumatoid factor, unspecified site | CPT/HCPCS: 96127; 99212 ==

== ENCOUNTER → 2025-01-06 08:12 | Outpatient (BNVA) | payer MEDICARE, SELFPAY | PROVIDERS: PCP Internal Medicine | DX: Z13.89 Encounter for screening for other disorder (principal) | CPT/HCPCS: 99211 ==

== ENCOUNTER 2025-01-12 07:23 | Outpatient (AMB) | payer MEDICARE, SELFPAY ==
--- OUTSIDE RECORDS SUMMARY | 2025-01-12 07:26 | XMS_ITS | Patient Health Record ---
Author Organization [facility] Address [address] [place] [address] Care Team Providers Care Undercover Operator Name Role Phone Gina Hinton Primary Care Provider Maximino Young Unavailable [phone] Reason For Referral No Information Medications Medication [...] W/U Status Risk Notes Problem Pre-surgery evaluation (726279960) Other specified pre-operative examination (V72.83) Active confirmed Problem Colon cancer screening (736274856) Colon cancer screening (V76.51) Active confirmed Problem History of polyp of colon (740277839) H/O adenomatous polyp of colon (V12.72) Active confirmed Plan Of Treatment Future Test Test Name Order Date COLONOSCOPY 12/26/2014 Insurance Providers Payer Name Payer Address Payer Phone Subscriber Number Group Number Insured Name Patient Relationship to Insured Coverage Start Date Coverage End Date MEDICARE OF [place] [address] [place] [id number] DIPIKA HAYES Self - patient is the insured MED[employer] ATT[employer] CLAIMS [address] [place] [address] [phone] [id number] DIPIKA HAYES Self - patient is the insured Medical (General) History Medical History History ICD Code She underwent an initial col onoscopy in April [address] Chamorro with the removal of a 1.5 cm rectal tubular adenoma--a followup flexible sigmoidoscopy later that year was negative for any residual polyp tissue; Colonoscopy 11-09-2009 with ne was negative except for diverticulsois and internal hemorrhoids hyperlipidemia Denies [place],DM,CVA,Lung disease,renal dise ase EGD [place] [address] Chamorro was negative for any significant findings other than some minimal changes of gastroesophageal reflux Surgical History Surgery Date(Month/Year) Appendectomy 1973 Laparotomy for adhesions about six month s after the appendectomy
--- NOTE | 2025-01-12 07:30 | A.OFFVIS_ITS ---
Vital Signs 01/12/25 07:36 Height 5 ft 7 in Weight 174 lb 13.225 oz BMI 27.4 BP 160/82 H Blood Pressure Location Lt brachial Position Sitting Pulse 109 H Pulse Source Pulse Oximeter Pulse Oximetry (%) 98 Oxygen Delivery Method Room Air Intake Visit Reasons: RA Intake Note: Patient presents for RA follow up. Allergies No Known Allergies Allergy (Verified 01/12/25 07:36) HPI Comments Details: Patient is a 74-year-old female with hyperlipidemia, IBS, osteopenia, polyar ticular osteoarthritis and seronegative rheumatoid arthritis here today for follow up Interval History: Patient last seen 09/09/2024 with me. - On Methtrexate 15mg SC weekly and SSZ 1500mg daily - Decreased dose after 06/2024 visit when she had transaminitis - No change in sx after the decrease - No evidence of synovitis on exam Today - On Methtrexate 15mg SC weekly and SSZ 1500mg daily - Doing well overall - Still has days when she gets more aches after uses in her hands and knees Rheumatologic History: Seronegative rheumatoid arthritis -ve RF -ve CCP erosive dx 07/2023 MTX 07/2023 partially effective, switched to SQ 09/2023 SSZ added 11/2023 - Mtx and SSZ decreased due to transaminitis 06/2024 Attempts to to add biologic have been met with high co-pay from insurance. They have tried Enbrel, Humira and other medications. Patient is not willing to do monthly infusions. Initial history: This is a 73-year-old female who presents for evaluation of diffuse joint pain. The condition started back in June with right knee pain followed by left knee pain, bilateral wrist pain, bilateral shoulder pain and neck pain. Associated with swelling of her wrists and knees. States that her symptoms are worse in the morning,.She has stiffness lasting all day. Patient denies any recent history of respiratory or urinary infections. She denies any fevers or weight loss. She denies any history of DVT/PE. She is unaware of any family history of an autoimmune rheumatic disease. Current Rheumatology Medication(s): Methotrexate 15 mg subcutaneous weekly Folic acid 1 mg daily Sulfasalazine 1500 mg once a day [facility] Medical History Polyarticular osteoarthritis Osteoporosis Elevated blood pressure reading without diagnosis of hypertension Osteopenia Dyslipidemia IBS (irritable bowel syndrome) Surgical History Keloid History of removal of ovarian cyst Family History Father Renal failure Mother Dementia Social History Housing: House Alcohol intake: current Alcohol intake frequency: a few times a month Alcohol type: beer Patient Tobacco Use Status: Former Tobacco user Tobacco use type: Cigarette e-Cigarette/Vaping Use: Never Used Second Hand Smoke Exposure: Yes service: No Current occupational status: retired 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 [employer] Cognitive needs: No Hearing needs: No Vision needs: Yes Review of Systems Const Details: Review of Systems Constitutional: Denies fever, chills, weight loss ENT: Denies vision changes, eye pain or eye redness, dental caries, dry mouth GI: Denies nausea, vomiting, diarrhea, abdominal pain, change in BM Pulm: Denies SOB, FLOOD, hemoptysis, wheezing Cards: Denies chest pain, palpitations Skin: Denies Raynaud's, rash, nail changes, photosensitivity, GOLF COACH: Denies headaches, weakness, paresthesias, recurrent falls MSK: as per HPI All other systems reviewed and are unremarkable except noted above Physical Exam Exam Exam: Vital signs reviewed Physical Examination CONSTITUITIONAL Patient alert and cooperative. Well appearing and in no apparent painful distress MSK Hands * Right Hand: Able to make a fist. No swelling or tenderness to palpation of the MCPs, PIPs or DIPs. * Left Hand: Able to make a fist. No swelling or tenderness to palpation of the MCPs, PIPs or DIPs. * Herbedens nodes noted bilaterally Wrists * Right Wrist: Full ROM to flexion and extension. No swelling or TTP * Left Wrist: Full ROM to flexion and extension. No swelling or TTP Elbows * Right Elbow: Full ROM. No swelling or TTP. No TTP of the medial epicondyle. No TTP of the lateral epicondyle * Left Elbow: Full ROM. No swelling or TTP. No TTP of the medial epicondyle. No TTP of the lateral epicondyle Shoulders * Right shoulder: Decreased ROM. No swelling noted. No TTP of the AC joint. No TTP of the subacromial bursa. No TTP of the posterior shoulder * Left shoulder: Decreased ROM. No swelling noted. No TTP of the AC joint. No TTP of the subacromial bursa. No TTP of the posterior shoulder Knees * Right knee: Full ROM. No swelling noted. No TTP of the knee joint line. No TTP of pes anserine bursa * Left knee: Full ROM. No swelling noted. No TTP of the knee joint line. No TTP of pes anserine bursa. * Crepitations felt bilaterally Ankles * Right ankle: Good ankle dorsiflexion and plantar flexion. No swelling. No TTP of the ankle joint * Left ankle: Good ankle dorsiflexion and plantar flexion. No swelling. No TTP of the ankle joint Feet * Right foot: Negative squeeze test * Left foot: Negative squeeze test Tender points? * No tenderness to palpation of the bilateral trapezius, supraspinatus, anterior costochondral junctions, bilateral suboccipital muscle insertions SKIN No rashes Vital Signs: Last Vital Signs Pulse 109 H 01/12/25 07:36 BP 160/82 H 01/12/25 07:36 Pulse Ox 98 01/12/25 07:36 Oxygen Delivery Method Room Air 01/12/25 07:36 BMI result Body Mass Index 27.4 Results Reviewed Results Reviewed: Laboratory Tests 12/16/24 07:11 WBC 4.8 RBC 3.60 L Hgb 12.3 Hct 36.2 L Plt Count 211 ESR 13 Sodium 140 Potassium 5.2 H D Chloride 108 Carbon Dioxide 25 BUN 12 Creatinine 0.94 AST 37 H ALT 18 C-Reactive Protein 0.14 Vitamin D total 46.0 US Abdomen with elastography 07/2024 FINDINGS: Liver: The right lobe of the liver measures 14.1 cm in size. The left lobe of the liver measures 7.6 cm in size. The liver demonstrates normal homogeneous echotexture. No focal mass or intrahepatic biliary ductal dilatation is identified. There is normal hepatopedal flow in the portal vein. Ultrasound elastography of the liver was performed with 10 separate measurements of the liver parenchyma with the patient in the supine position. Measurements were obtained approximately 2 cm below Lora's capsule and perpendicular to the capsule. Images are of satisfactory quality. The median shear wave velocity is 1.52 m/s. The interquartile range/median (IQR/median) is 0.19. Gallbladder and biliary tree: The gallbladder is unremarkable, without evidence of calculi, wall thickening, or pericholecystic fluid. There is no sonographic Cobos sign. The common bile duct is normal in caliber measuring 2 mm. Kidneys: The right kidney measures 8.5 cm in length. The left kidney measures 9.3 cm in length. The kidneys are unremarkable, without evidence of masses, hydronephrosis, or calculi. Pancreas: The pancreatic head, neck, and body are unremarkable. The pancreatic tail is obscured by bowel gas. Spleen: The spleen is normal in size and contour, measuring 6.0 cm in length. Abdominal aorta and inferior vena cava: The visualized portions of the abdominal aorta and inferior vena cava are normal in caliber. There is no free fluid in the abdomen. IMPRESSION: Unremarkable abdominal ultrasound. The median shear wave velocity in the liver is 1.52 m/s, corresponding to a median liver stiffness of 6.96 kPa. The IQR/median value is 0.19. This is indicative of a poor quality data set, and the estimated liver stiffness may be unreliable. Findings are indicative of a low elastography value which rules out advanced chronic liver disease in asymptomatic patients. DEXA 06/2024 FINDINGS: The bone mineral density of the lumbar spine is 1.061 with a T-score of -0.9, and a Z-score of 0.5. This is indicative of normal bone mineral density. This represents a BMD change of -3.1% compared to the prior exam. This is statistically significant. The bone mineral density of the left total hip is 0.772 with a T-score of -1.9, and a Z-score of -0.4. This is indicative of osteopenia. This represents a BMD change of -3.0% compared to the prior exam. This is not statistically significant. The bone mineral density of the left femoral neck is 0.777 with a T-score of -1.9, and a Z-score of -0.2. This is indicative of osteopenia. This represents a BMD change of -3.6% compared to the prior exam. FRACTURE RISK: The FRAX index suggests a ten year probability of major osteoporotic fracture of 16.7%, and of hip fracture 4.5%. Assessment & Plan Assessment & Plan (1) Seronegative rheumatoid arthritis: Comment: -ve RF -ve CCP erosive dx 07/2023 MTX 07/2023 partially effective, switched to SQ 09/2023 SSZ added 11/2023 Mtx and SSZ decreased 06/2024 due to transaminitis Code(s): M06.00 - Rheumatoid arthritis without rheumatoid factor, unspecified site Category: Medical Plan: #Seronegative RA Patient is a 74-year-old female with seronegative rheumatoid arthritis. Currently in remission with no evidence of synovitis on exam today. We will continue the regimen of 15 mg subcutaneous methotrexate every week and sulfasalazine 1500 mg once a day Plan - Mtx to 15mg SC every week - Folic acid 1 mg every day - SSZ 1500mg daily - RTC 6 months - Labs before visit: CBC, CMP, ESR, CRP (2) Osteoporosis: Comment: DEXA 06/2024: AP Spine -0.9, Left femur neck -1.9, Left femur total -1.9. FRAX 16.7/4.5 IV Reclast 09/2024 Code(s): M81.0 - Age-related osteoporosis without current pathological fracture Category: Medical Qualifiers: Osteoporosis type: age-related Presence of current pathological fracture: without current pathological fracture Qualified Code(s): M81.0 - Age- related osteoporosis without current pathological fracture Plan: #Osteopenia with elevated FRAX Patient is a 74-year-old female with osteopenia with an elevated FRAX index 4.5% for hip fracture which qualifies for treatment. Given her difficulties swallowing large pills we will pursue IV Reclast once a year for treatment. Plan - IV reclast 5mg Yearly, next due 09/2025 (3) Polyarticular osteoarthritis: Code(s): M15.9 - Polyosteoarthritis, unspecified Category: Medical Plan: #Polyarticular OA Patient with polyarticular osteoarthritis, particularly hand OA. 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 Limit alcohol and avoid Bactrim ? Monitoring: ?CBC, BMP, LFTs every 3-4 months and hepatitis serologies as needed (6) Encounter for monitoring sulfasalazine therapy: Code(s): Z51.81 - Encounter for therapeutic drug level monitoring; Z79.899 - Other terminal press operator (current) drug therapy Plan: #Long-term Use of Sulphasalazine Discussed with patient the risks and benefits of sulfasalazine in the management of the rheumatic condition Benefits include: - Reduced pain, reduce mortality, maintenance of remission then reduction of flares Risks include: - GI upset, hemolysis (especially if G6PD deficiency), eosinophilia, headache, dizziness, rash, elevated LFTs Plan I spent 40 minutes reviewing the record and labs, taking a history, examining the patient, discussing the treatment plan, answering questions and documenting in the medical record Coding Level of Care Code Est Pt Level 5 (71042) Complex EM visit Add On G2211 Diagnoses Seronegative rheumatoid arthritis M06.00 Age-related osteoporosis without current pathological fracture M81.0 Osteoporosis type: age-related Presence of current pathological fracture: without current pathological fracture Polyarticular osteoarthritis M15.9 Transaminitis R74.01 FDC 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
[2025-01-12 07:36] VITALS: BP 160/82; PULSE 109; O2SAT 98; BMI 27.4
== END 2025-01-12 08:06 | disposition home or self-care (01) ==
LOC: HO.RHES 07:23
PROVIDERS: PCP Internal Medicine; Visit Provider Student in an Organized Health Care Education/Training Program
DX: M06.09 Rheumatoid arthritis without rheumatoid factor, multiple sites (principal); M81.0 Age-related osteoporosis without current pathological fracture; M15.9 Polyosteoarthritis, unspecified; R74.01 Elevation of levels of liver transaminase levels; Z79.631 Long term (current) use of antimetabolite agent; Z51.81 Encounter for therapeutic drug level monitoring; Z79.899 Other long term (current) drug therapy
CPT/HCPCS: 99215; G2211

== ENCOUNTER → 2025-01-12 07:23 | Outpatient (BNVA) | payer MEDICARE, SELFPAY | PROVIDERS: PCP Internal Medicine; Visit Provider Student in an Organized Health Care Education/Training Program | DX: M06.00 Rheumatoid arthritis without rheumatoid factor, unspecified site (principal); M81.0 Age-related osteoporosis without current pathological fracture; M15.9 Polyosteoarthritis, unspecified; R74.01 Elevation of levels of liver transaminase levels; Z51.81 Encounter for therapeutic drug level monitoring; Z79.899 Other long term (current) drug therapy; Z79.631 Long term (current) use of antimetabolite agent | CPT/HCPCS: 99212 ==

== ENCOUNTER → 2025-01-20 10:14 | Outpatient (BNVA) | payer MEDICARE, SELFPAY | PROVIDERS: PCP Internal Medicine | DX: Z01.30 Encounter for examination of blood pressure without abnormal findings (principal) | CPT/HCPCS: 99211 ==